=== PATIENT | male | born 1950 | race Caucasian/White ===

== ENCOUNTER → 2020-08-25 18:44 | Outpatient (CLI) | payer MEDICARE, SELFPAY ==
[2020-08-25 19:15] LABS: Alanine Aminotransferase 24 U/L (12-78); Albumin Level 3.6 g/dl (3.5-5.0); Albumin/Globulin Ratio 1.6 (1.1-1.8); Alkaline Phosphatase 123 U/L (38-126); Anion Gap 12.7 mEq/L (5-15); Aspartate Amino Transferase 27 U/L (17-59); Bilirubin,Total 0.4 mg/dl (0.2-1.3); Blood Urea Nitrogen 43 mg/dl (9-20); Calcium 8.5 mg/dl (8.4-10.2); Carbon Dioxide 26 mmol/L (22.0-30.0); Chloride 93 mmol/L (98-107); Estimated Glomerular Filt Rate 46 ml/min (>60); GFR (African American) 56 ML/MIN (>60); Globulin 2.2 g/dL (1.3-3.2); Glucose 151 mg/dl (74-100); Potassium 4.7 mmoL/L (3.5-5.1); Sodium 127 mmol/L (136-145); Total Protein,Serum 5.8 g/dl (6.3-8.2)
== END ==
PROVIDERS: Visit Provider Family Medicine
DX: R60.9 Edema, unspecified (principal)
CPT/HCPCS: 80053

== ENCOUNTER → 2021-02-19 12:01 | Outpatient (CLI) | payer MEDICARE, SELFPAY ==
--- NOTE | 2021-02-19 12:04 | CA_ITS ---
APPROVED REPORT Left Upper Extremity Venous Study for DVT. Fiber Optic Splicer: CARLOS Louise Upper Extremity Pain: Upper Extremity Edema: Left History of Smoking Upper Extremity Swelling: Left Hx of thrombus in left upper extremity 3-4 weeks ago Past History DVT : Vein Imaging IJV (L): Normal phasic flow is seen. Normal flow, augmentation and compression is seen. No evidence of Deep Vein Thrombosis. No abnormalities are demonstrated. SCV (L): Normal phasic flow is seen. Normal flow, augmentation and compression is seen. No evidence of Deep Vein Thrombosis. No abnormalities are demonstrated. Axillary (L): Normal phasic flow is seen. Normal flow, augmentation and compression is seen. No evidence of Deep Vein Thrombosis. No abnormalities are demonstrated. Brachial (L): Normal phasic flow is seen. Normal flow, augmentation and compression is seen. No evidence of Deep Vein Thrombosis. No abnormalities are demonstrated. Basilic (L): Partially Compressible, normal phasic flow is seen. Cephalic (L): Normal phasic flow is seen. Normal flow, augmentation and compression is seen. No evidence of Deep Vein Thrombosis. No abnormalities are demonstrated. Radial (L): Partially Compressible, normal phasic flow is seen. Ulnar (L): Normal phasic flow is seen. Normal flow, augmentation and compression is seen. No evidence of Deep Vein Thrombosis. No abnormalities are demonstrated. Findings Thrombus noted in the left basilic and radial vein. Other deep veins of the left upper extremity are normal. Conclusion Thrombus noted in the left basilic and radial vein. Other deep veins of the left upper extremity are normal. Critical Notification Critical Value: Yes Physician Notified Date: 02/19/2021 Time: 13:21 Physician Name: Dr. Miller Electronically signed by : Harpal Heck MD 02/19/2021 16:36:31
--- NOTE | 2021-02-19 12:07 | XR_ITS ---
PROCEDURE: XR CHEST 2V CLINICAL HISTORY: copd COMPARISON: No exams were available for comparison FINDINGS: Cardiomegaly with mild cephalization of the pulmonary vessels. Coronary artery calcifications and/or stents noted Bipolar pacemaker is present from left subclavian approach. Small parenchymal opacity is present in the right CP angle and could be due to an area of atelectasis or infiltrate. No acute bony abnormalities. IMPRESSION: Nonspecific parenchymal opacity in the right lung base laterally and could be due to an area of atelectasis or infiltrate or developing nodule. Follow-up suggested to confirm stability or resolution. Mild congestive heart failure Dictated by: Harpal Heck MD 02/19/2021 12:41 Harpal Heck MD in [facility] 02/19/2021 12:41
== END ==
PROVIDERS: PCP Family Medicine; Visit Provider Family Medicine
DX: M79.89 Other specified soft tissue disorders (principal); R06.02 Shortness of breath
CPT/HCPCS: 71046; 93971

== ENCOUNTER 2021-02-23 11:28 | Emergency (ER) | payer MEDICARE, SELFPAY ==
[2021-02-23] VITALS (8 sets, daily range): BP systolic 131–154; BP diastolic 76–80; PULSE 75–94; RESP 20–26; TEMP 37.2; O2SAT 96–99; BMI 27.3
--- NOTE | 2021-02-23 12:10 | XR_ITS ---
PROCEDURE: XR CHEST PORTABLE CLINICAL HISTORY: WEAKNESS COMPARISON: CR XR CHEST 2V from 02/19/2021 FINDINGS: Minor atelectasis noted in the right lower lobe. No lobar consolidation, pleural effusions or pneumothorax. Calcified granuloma in the right lung apex. Mild cardiomegaly is noted. Central pulmonary vasculature is within normal limits. Degenerative changes of the visualized thoracic spine. Tortuous descending thoracic aorta is noted. Dual-chamber pacemaker is noted. IMPRESSION: No focal consolidation or pleural effusions. Minor right basal atelectasis. Dictated by: Tori Huber 02/23/2021 12:47 Tori Huebr in [facility] 02/23/2021 12:47
--- NOTE | 2021-02-23 12:16 | HMH.EDGENADL ---
ED Disposition Clinical Impression: Deep venous thrombosis of upper extremity Qualifiers: Affected thrombotic vein of extremity: unspecified vein of extremity Chronicity: acute Laterality: left Qualified Code(s): I82.622 - Acute embolism and thrombosis of deep veins of left upper extremity Disposition: Home, Self-Care Condition on Discharge: Good Instructions: DI for Deep Vein Thrombosis Additional Instructions: To the ED with chest pain, tachycardia, shortness of breath, feeling as though you are going to pass out, worsening swelling of the arm. Referrals: Yehuda Miller MD [Primary Care Provider] - - Critical Care Critical Care Time: No Attestation: On 02/23/21, the high probability of a clinically significant, sudden or life threatening deterioration of the following system(s) required my full and direct attention, intervention and personal management. The time I documented below is in addition to time spent performing reported procedures but includes the following listed in this critical care notation. Medical Decision Making - Jer Inquiry Pt receiving controlled substance: No Vital Signs: 02/23/21 11:37 02/23/21 11:53 Temperature 98.9 F Temperature Source Oral Pulse Rate 91 H Pulse Rate [Left Radial] 92 H Respiratory Rate 26 H Blood Pressure [Right Arm] 152/77 H Blood Pressure Mean [Right Arm] 102 Blood Pressure Source [Right Arm] Automatic Cuff Blood Pressure Position [Right Arm] Sitting 02 Sat by Pulse Oximetry 98 97 Oxygen Delivery Method Room Air - Lab Data Lab Results 02/23/21 12:15: WBC 12.0 H, RBC 3.48 L, Hgb 8.8 L, Hct 28.3 L, MCV 81.2, MCH 25.4 L, MCHC 31.2 L, RDW 20.9 H, Plt Count 227, MPV 7.8, Neut % (Auto) 94.4 H, Lymph % (Auto) 2.9 L, Rabun % (Auto) 1.7, Eos % (Auto) 0.9, Baso % (Auto) 0.2, Neut # (Auto) 11.3 H, Lymph # (Auto) 0.4 L, Rabun # (Auto) 0.2, Eos # (Auto) 0.1, Baso # (Auto) 0.0, Total Counted 100, Neutrophils % (Manual) 91 H, Lymphocytes % (Manual) 5 L, Monocytes % (Manual) 3, Eosinophils % (Manual) 1, Platelet Estimate Normal, Hypochromasia 2+ 02/23/21 12:15: Sodium 138, Potassium 3.7, Chloride 97 L, Carbon Dioxide 33 H, Anion Gap 11.7, BUN 33 H, Creatinine 1.80 H, Estimated Creat Clear 47, Estimated GFR 37 L, Est GFR ( Amer) 45 L, Glucose 153 H, Calcium 8.4, Total Bilirubin 0.7, AST 22, ALT 16, Alkaline Phosphatase 154 H, Total Protein 6.4, Albumin 3.7, Globulin 2.7, Albumin/Globulin Ratio 1.4 02/23/21 12:24: SARS-CoV-2 (PCR) Not detected, Influenza A Untype (PCR) Not detected, Influenza Type B (PCR) Not detected Result diagrams: 02/23/21 12:15 02/23/21 12:15 Orders (Tests/Meds): ORDERS Category Date Time Status PT/PTT Stat Lab 02/23/21 12:15 Received Prothrombin Time INR Stat Lab 02/23/21 12:15 Received Medical Decision Narrative: Patient to the ED today for further evaluation of left upper extremity arm swelling and pain, instructed by PCP if not improved to return to ED for further evaluation. Patient is overall well-appearing on examination in no acute distress with stable vital signs. Diagnosis includes upper extremity DVT, upper extremity cellulitis, deep space abscess of the arm. Will order CBC, CMP and coagulation studies, and consult with Dr. Miller patient's primary care physician. Symptoms of not worsening, patient was is on a stable dose of Xarelto, patient will be able to be discharged. I have discussed this plan thoroughly with the patient, initially they expressed frustration, however after more education, they are all right with going home, patient given extensive signs and symptoms to watch out for emergency indications return to the emergency department, chest pain, shortness of breath, tachycardia, syncope as symptoms that his blood clot could have migrated to the chest, we also discussed symptoms of worsening upper extremity DVT including redness, pain, numbness or paresthesias of the left upper extremity wrist and forearm, as these c
--- NOTE | 2021-02-23 12:21 | PC.NURSE ---
MESSAGE LEFT FOR DR DAMIAN TO CALL DR NEVAREZ BACK
[2021-02-23 12:40] LABS: Basophils % 0.2 % (0.1-2.0); Eosinophils # 0.1 K/mm3 (0.0-0.4); Eosinophils % 0.9 % (0.1-12.0); Hematocrit 28.3 % (42.0-52.0); Hemoglobin 8.8 g/dL (14.1-18.0); Lymphocytes # 0.4 K/mm3 (0.7-4.5); Lymphocytes % 2.9 % (10-50); Mean Corpuscular HGB Conc 31.2 g/dL (31.8-35.4); Mean Corpuscular Hemoglobin 25.4 pg (27.0-31.2); Mean Corpuscular Volume 81.2 fl (80-94); Mean Platelet Volume 7.8 fl (7.4-10.4); Monocytes # 0.2 K/mm3 (0.1-1.0); Monocytes % 1.7 % (1.7-9.3); Neutrophils # 11.3 K/mm3 (1.8-7.8); Neutrophils % 94.4 % (37.0-80.0); Platelet Count 227 K/mm3 (142-424); Red Blood Count 3.48 M/mm3 (4.60-6.20); Red Cell Distribution Width 20.9 % (11.5-17.5)
[2021-02-23 12:41] LABS: MANUAL DIFFERENTIAL MANUAL DIFFERENTIAL (MANUAL DIFF)
[2021-02-23 12:41] LABS: Coronavirus 19, PCR Not Detected (NotDetected); Influenza A, PCR Not Detected (NotDetected); Influenza B, PCR Not Detected (NotDetected)
[2021-02-23 12:50] LABS: Alanine Aminotransferase 16 U/L (12-78); Albumin Level 3.7 g/dl (3.5-5.0); Albumin/Globulin Ratio 1.4 (1.1-1.8); Alkaline Phosphatase 154 U/L (38-126); Anion Gap 11.7 mEq/L (5-15); Aspartate Amino Transferase 22 U/L (17-59); Bilirubin,Total 0.7 mg/dl (0.2-1.3); Blood Urea Nitrogen 33 mg/dl (9-20); Calcium 8.4 mg/dl (8.4-10.2); Carbon Dioxide 33 mmol/L (22.0-30.0); Chloride 97 mmol/L (98-107); Creatinine Clearance Estimated 47 mL/min (50-200); Estimated Glomerular Filt Rate 37 ml/min (>60); GFR (African American) 45 ML/MIN (>60); Globulin 2.7 g/dL (1.3-3.2); Glucose 153 mg/dl (74-100); Potassium 3.7 mmoL/L (3.5-5.1); Sodium 138 mmol/L (136-145); Total Protein,Serum 6.4 g/dl (6.3-8.2)
[2021-02-23 13:12] LABS: Eosinophils % 1 % (0-3); Lymphocytes % 5 % (10-50); Monocytes % 3 % (2-9); Neutrophils % 91 % (42-76); Total Cells Counted 100
[2021-02-23 13:13] LABS: Hypochromasia 2+
[2021-02-23 13:14] LABS: Platelet Estimate Normal
--- NOTE | 2021-02-23 13:24 | PC.NURSE ---
LANG OLSEN speaking with Dr Miller
[2021-02-23 14:53] LABS: Prothrombin Time 19.8 seconds (10.1-12.5)
[2021-02-23 15:05] LABS: INR 1.75 (0.9-1.1)
[2021-02-23 15:08] LABS: Activated Partial Thrombo Time 47.6 seconds (22.8-30.6)
== END 2021-02-23 14:11 | disposition home or self-care (01) ==
PROVIDERS: Emergency Provider Student in an Organized Health Care Education/Training Program; PCP Family Medicine
DX: I82.622 Acute embolism and thrombosis of deep veins of left upper extremity (principal); J44.9 Chronic obstructive pulmonary disease, unspecified; I10 Essential (primary) hypertension; E78.5 Hyperlipidemia, unspecified; F17.290 Nicotine dependence, other tobacco product, uncomplicated; I25.10 Atherosclerotic heart disease of native coronary artery without angina pectoris; Z95.0 Presence of cardiac pacemaker; Z79.899 Other long term (current) drug therapy; Z11.52 Encounter for screening for COVID-19
CPT/HCPCS: 71045; 80053; 85007; 85025; 85610; 85730; 99283; U0003

== ENCOUNTER 2021-11-10 16:06 | Inpatient (IN) | payer MEDICARE, SELFPAY ==
--- NOTE | 2021-11-10 16:20 | PC.NURSE ---
Pt arrived to the floor at this time
[2021-11-10 16:48] VITALS: BP 115/55; PULSE 98; RESP 24; TEMP 37.3; O2SAT 97
--- NOTE | 2021-11-10 16:48 | HMH.CONS ---
*Admission Date: 11/10/21 *Reason for consult:: Penoscrotal edema *History of present illness: 71-year-old white male with 2-day history of left buttock pain followed by swelling of his scrotum and penis. Patient denies any recent trauma or bug bites. He does give a history of a MRSA infection of his right buttock 2 to 3 years ago that required surgical management. Current temp is 99.1 but he does have subjective chills. He is admitted to the floor for further evaluation at the request of Dr. Miller. Patient's past medical history is significant for congestive heart failure. Patient states he is able to void despite the penile swelling. [facility] History Medical History: Reports:: Congestive Heart Failure, Chronic Obstructive Pulmonary Disease (COPD), Coronary Artery Disease, Hyperlipidemia, Hypertension, Internal Pacemaker, MRSA Denies:: Cancer, Diabetes Mellitus Type 1, Diabetes Mellitus Type 2, Seizures *Have you ever received a pneumonia vaccine?: Yes *Have you received a flu vaccine this season?: Yes Other Medical History: Denies: Blood Transfusion Reaction Laterality Cases: Left: Cataract Other Surgeries: Yes: Angioplasty, Colonoscopy, Coronary Stent, Pacemaker Amputation: No Fractures: No - *Social History Last grade of school completed: 7th or 8th Smoking Status: Former smoker Tobacco Type: smokeless tobacco Alcohol Intake: never Substance Use Type: denies use *Occupational Status:: retired Housing: house Household Members: spouse *Travel in the last 8 weeks: None Family Hx:: Coronary Artery Disease Review of Systems - Review of Systems Review of systems:: pertinent systems reviewed and negative unless documented below Meds Home Medications Medication Instructions Recorded Confirmed Type albuterol sulfate 90 mcg/actuation 2 puff INHALATION Q6H PRN #8.5 g 08/25/20 11/10/21 Rx aerosol inhaler atorvastatin 40 mg tablet 40 mg PO QHS #90 tab 02/19/21 11/10/21 Rx pantoprazole 40 mg tablet,delayed 40 mg PO QDAY #90 tab 02/19/21 11/10/21 Rx release Isosorbide Mononitrate [Imdur 60mg 60 mg PO DAILY 02/23/21 11/10/21 History ER tablet] predniSONE [Deltasone 20mg 20 mg PO DAILY 02/23/21 11/10/21 History tablet] dorzolamide 2 % eye drops ml OPHTHALMIC 03/09/21 11/10/21 History fluticasone fur. 200 mcg-umeclid ea INHALATION DAILY each 03/09/21 11/10/21 History 62.5 mcg-vilant 25 mcg inhalat.powder nystatin 100,000 unit/mL oral ml PO 03/09/21 11/10/21 History suspension rivaroxaban 20 mg tablet 20 mg PO DAILY #90 tab 03/09/21 11/10/21 Rx colchicine 0.6 mg tablet See Rx Instructions .ROUTE 03/24/21 11/10/21 Rx .COMPLEX #60 tab latanoprost 0.005 % eye drops 1 drp OPHTHALMIC ml 03/24/21 11/10/21 History montelukast 10 mg tablet 10 mg PO tab 03/24/21 11/10/21 History lorazepam 0.5 mg tablet 0.5 mg PO BID PRN #60 tab 04/17/21 11/10/21 Rx doxycycline hyclate 100 mg tablet 100 mg PO DAILY tab 06/25/21 11/10/21 History hydrocodone 5 mg-acetaminophen 325 1 tab PO .COMPLEX PRN tab 06/25/21 11/10/21 History mg tablet amiodarone 200 mg tablet 200 mg PO DAILY #90 tab 07/13/21 11/10/21 Rx nitroglycerin 0.4 mg sublingual See Rx Instructions .ROUTE 09/17/21 11/10/21 Rx tablet .COMPLEX #25 tab hydrocodone 7.5 mg-acetaminophen 1 tab PO Q8H PRN #90 tab 10/22/21 11/10/21 Rx 325 mg tablet ipratropium 0.5 mg-albuterol 3 mg 3 ml INHALATION QID PRN #360 ml 11/10/21 11/10/21 Rx (2.5 mg base)/3 mL nebulization soln Allergies Allergy/AdvReac Type Severity Reaction Status Date / Time No Known Allergies Allergy Verified 11/10/21 14:28 Exam Vital signs and Labs for Last 24 Hours: Temp Pulse Resp BP Pulse Ox 99.1 F 98 H 24 115/55 L 97 11/10/21 16:48 11/10/21 16:48 11/10/21 16:48 11/10/21 16:48 11/10/21 16:48 - *Routine Abdominal Exam Present: soft. Absent: tenderness - *Routine Rectal Exam Comments: On the left buttock adjacent to the anus is a small ulcera
[2021-11-10 17:10] VITALS: BMI 27.1
[2021-11-10 17:11] LABS: Coronavirus 19, PCR Not Detected (NotDetected); Influenza A, PCR Not Detected (NotDetected); Influenza B, PCR Not Detected (NotDetected)
--- NOTE | 2021-11-10 17:35 | XR_ITS ---
PROCEDURE INFORMATION: Exam: XR Chest Exam date and time: 11/10/2021 6:00 PM Age: 71 years old Clinical indication: Other: Copd; Additional info: Copd and chf TECHNIQUE: Imaging protocol: XR of the chest. Views: 1 view. COMPARISON: CR XR CHEST PORTABLE 02/23/2021 12:33 PM FINDINGS: Lungs: A pacemaker device is present, and its leads are in appropriate position. Lung volumes are mildly diminished, as before. Minor strandy densities in the lung bases and left lateral mid lung are stable suggesting parenchymal scarring. No new focal areas of consolidation. Pleural spaces: No pleural effusions or appreciable adenopathy. Negative for pneumothorax. Heart/Mediastinum: Cardiac silhouette and pulmonary vasculature are within range of normal. Bones/joints: There is no evidence of acute fracture. IMPRESSION: Stable mild strandy densities in the lung bases and left lateral mid lung suggesting parenchymal scarring.
[2021-11-10 17:49] LABS: Chloride 102 mmol/L (98-107); Potassium 4.3 mmoL/L (3.5-5.1); Sodium 134 mmol/L (136-145)
[2021-11-10 17:52] LABS: Anion Gap 17.3 mEq/L (5-15); Blood Urea Nitrogen 38 mg/dl (9-20); Calcium 8.2 mg/dl (8.4-10.2); Carbon Dioxide 19 mmol/L (22.0-30.0); Creatinine Clearance Estimated 28 mL/min (50-200); Estimated Glomerular Filt Rate 21 ml/min (>60); GFR (African American) 25 ML/MIN (>60); Glucose 114 mg/dl (74-100)
[2021-11-10 17:53] LABS: Basophils % 0.1 % (0.1-2.0); Eosinophils % 0.1 % (0.1-12.0); Hematocrit 31.1 % (42.0-52.0); Hemoglobin 10.1 g/dL (14.1-18.0); Lymphocytes # 0.6 K/mm3 (0.7-4.5); Lymphocytes % 3.5 % (10-50); Mean Corpuscular HGB Conc 32.5 g/dL (31.8-35.4); Mean Corpuscular Hemoglobin 25.8 pg (27.0-31.2); Mean Corpuscular Volume 79.6 fl (80-94); Mean Platelet Volume 9.7 fl (7.4-10.4); Monocytes # 1.2 K/mm3 (0.1-1.0); Monocytes % 6.3 % (1.7-9.3); Neutrophils # 16.7 K/mm3 (1.8-7.8); Platelet Count 264 K/mm3 (142-424); Red Cell Distribution Width 17.9 % (11.5-17.5); White Blood Count 18.6 K/mm3 (4.8-10.8)
[2021-11-10 17:54] LABS: MANUAL DIFFERENTIAL MANUAL DIFFERENTIAL (MANUAL DIFF)
[2021-11-10 18:26] LABS: NT Pro Brain Natriuretic Pep. 39100 pg/mL (0-125)
[2021-11-10 18:38] LABS: Anisocytosis 1+; Hypochromasia 1+; Lymphocytes % 6 % (10-50); Monocytes % 5 % (2-9); Neutrophils % 89 % (42-76); Ovalocytes 2+; Platelet Estimate Normal; Total Cells Counted 100
--- NOTE | 2021-11-10 18:48 | PC.NURSE ---
Dr Partida notified of consult on pt.
--- NOTE | 2021-11-10 18:54 | PC.WOUNDNOTE ---
abcess noted to left buttock
--- NOTE | 2021-11-10 19:58 | CT_ITS ---
PROCEDURE INFORMATION: Exam: CT Abdomen And Pelvis Without Contrast Exam date and time: 11/10/2021 8:13 PM Age: 71 years old Clinical indication: Screening exam; Other: Cellulitis buttocks, evaluate for abcess TECHNIQUE: Imaging protocol: Computed tomography of the abdomen and pelvis without contrast. Radiation optimization: All CT scans at this facility use at least one of these dose optimization techniques: automated exposure control; mA and/or kV adjustment per patient size (includes targeted exams where dose is matched to clinical indication); or iterative reconstruction. COMPARISON: CR XR CHEST PORTABLE 11/10/2021 6:00 PM FINDINGS: Lungs: No air densities to suggest emphysematous changes. Liver: Normal. No mass. Gallbladder and bile ducts: Normal. No calcified stones. No ductal dilation. Pancreas: Normal. No ductal dilation. Spleen: Multiple calcific densities of the spleen are likely related to prior granulomatous process. Adrenal glands: Normal. No mass. Kidneys and ureters: Left renal Bosniak 1 cystic lesion that is homogeneous and fluid density (-9-20 HU), no septations or calcifications, having gupta smooth and thin. Measurement is 29 mm. No follow-up recommended. Stomach and bowel: Unremarkable. No obstruction. No mucosal thickening. Appendix: No evidence of appendicitis. Intraperitoneal space: Unremarkable. No free air. No significant fluid collection. Vasculature: Moderate calcific atherosclerotic disease of the abdominal aorta without aneurysmal dilatation is present. Lymph nodes: Unremarkable. No enlarged lymph nodes. Urinary bladder: Unremarkable as visualized. Reproductive: Unremarkable as visualized. Bones/joints: Unremarkable. No acute fracture. Soft tissues: Significant soft tissue swelling of the scrotum, and perineum soft tissues which can be seen with infectious process such as cellulitis. IMPRESSION: Significant soft tissue swelling of the scrotum, and perineum soft tissues which can be seen with infectious process such as cellulitis. No air densities to suggest emphysematous changes. COMMENTS: Consistent with the [employer]'s Incidental Findings Committee white paper (J Am Mikel Radiol 2018): Any incidental renal lesion less than 1 cm or classified as too small to characterize, or any incidental cystic renal lesion characterized as simple-appearing, is likely benign. No follow-up imaging is recommended for these lesions per consensus recommendations based on imaging criteria.
--- NOTE | 2021-11-10 20:06 | HMH.HP ---
*Admission Date: 11/10/21 *Chief complaint: cellulitis buttocks and scrotal edema *History of present illness: Patient is a 71-year-old white male, known to me from the office, who was admitted with Vitas of the left buttocks associated with pain and marked scrotal edema with penile swelling. Patient relays a history of MRSA buttock infection, right-sided, requiring incision and drainage several years ago at [facility] in [place]. Patient relays increasing redness and tenderness at the inferior aspect of the left buttocks over the last 2 days. Was recently associated with marked scrotal and penile edema. Patient was seen in consultation per Dr. James. Patient has a history of congestive heart failure and chronic renal insufficiency. His brain natruretic peptide was markedly elevated. Patient has history of coronary artery disease, stent deployment, and refractory chest wall discomfort. Patient has a history of severe gout with tophus formation. Patient has a history of COPD oxygen dependence Patient has history of Covid pneumonia, quired hospitalization in August of this year. During the course of his stay he developed a DVT in the left upper extremity, for which he was placed on Xarelto. Given patient's presentation, acute changes on physical exam, and constellation of comorbid features I elected to admit him for further treatment, including IV antibiotics, further delineation of his cellulitis, and consultation. [facility] History Medical History: Reports:: Congestive Heart Failure, Chronic Obstructive Pulmonary Disease (COPD), Coronary Artery Disease, Hyperlipidemia, Hypertension, Internal Pacemaker, MRSA Denies:: Cancer, Diabetes Mellitus Type 1, Diabetes Mellitus Type 2, Seizures *Have you ever received a pneumonia vaccine?: Yes *Have you received a flu vaccine this season?: Yes Other Medical History: Denies: Blood Transfusion Reaction Laterality Cases: Left: Cataract Other Surgeries: Yes: Angioplasty, Colonoscopy, Coronary Stent, Pacemaker Amputation: No Fractures: No - *Social History Last grade of school completed: 7th or 8th Smoking Status: Former smoker Tobacco Type: smokeless tobacco Alcohol Intake: never Substance Use Type: denies use *Occupational Status:: retired Housing: house Household Members: spouse *Travel in the last 8 weeks: None Family Hx:: Coronary Artery Disease Review of Systems - Constitutional Reports chills, Reports weakness - Eyes Denies change in vision - ENT Denies abnormal hearing, Denies bleeding gums - *Cardiovascular Reports chest pain, Reports shortness of breath, Reports shortness of breath with activity, Reports shortness of breath when lying down - *Respiratory Reports shortness of breath, Reports shortness of breath with activity, Denies excessive phlegm production - *Gastrointestinal Denies abdominal pain - *Genitourinary Reports genital pain, Reports scrotal swelling, Denies difficulty urinating, Denies blood in urine - *Musculoskeletal Reports abnormal walking, Reports joint pain, Reports deformity, Reports limited joint movement - Integumentary/Breasts Reports new lesions, Denies yellowing of the skin - *Neurologic Denies behavioral changes - Psychiatric Denies behavioral changes - Endocrine Denies increased thirst, Denies increased hunger - Hematologic/Lymphatic Denies easy bleeding - Allergic/Immunologic Denies hives Meds Home Medications Medication Instructions Recorded Confirmed Type albuterol sulfate 90 mcg/actuation 2 puff INHALATION Q6H PRN #8.5 g 08/25/20 11/10/21 Rx aerosol inhaler atorvastatin 40 mg tablet 40 mg PO QHS #90 tab 02/19/21 11/10/21 Rx pantoprazole 40 mg tablet,delayed 40 mg PO QDAY #90 tab 02/19/21 11/10/21 Rx release Isosorbide Mononitrate [Imdur 60mg 60 mg PO DAILY 02/23/21 11/10/21 History ER tablet] predniSONE [Deltasone 20mg 20 mg PO DAILY 02/23/21 11/10/21 History tablet] latanoprost 0.00
--- NOTE | 2021-11-10 20:29 | XR_ITS ---
PROCEDURE INFORMATION: Exam: XR Chest Exam date and time: 11/10/2021 9:10 PM Age: 71 years old Clinical indication: Cardiovascular condition or disease; Congestive heart failure (chf); Cause unknown TECHNIQUE: Imaging protocol: XR of the chest. Views: 1 view. COMPARISON: CR XR CHEST PORTABLE 11/10/2021 6:00 PM FINDINGS: Lungs: Bibasilar opacities unchanged from prior exam. Pleural spaces: Unremarkable. No pleural effusion. No pneumothorax. Heart/Mediastinum: A 2 lead internal cardiac device implanted at the left chest with leads extending to the right heart. Cardiomegaly unchanged. Bones/joints: Unremarkable. IMPRESSION: Cardiomegaly unchanged. Bibasilar opacities unchanged from prior exam.
[2021-11-10 20:51] VITALS: BP 123/65; PULSE 98; RESP 16; TEMP 36.6; O2SAT 97
[2021-11-10 22:47] VITALS: PULSE 86; O2SAT 94
[2021-11-11] VITALS (21 sets, daily range): BP systolic 99–158; BP diastolic 52–73; PULSE 60–108; RESP 15–24; TEMP 36.3–38; O2SAT 93–100; BMI 27.2
--- NOTE | 2021-11-11 00:01 | US_ITS ---
FINAL REPORT TECHNIQUE: Ultrasound images of the retroperitoneal were obtained. CLINICAL HISTORY: elev creat FINDINGS: The right kidney measures 11.2 cm in length. It is normal in echogenicity. There is no hydronephrosis. The left kidney measures 11.5 cm in length. It is normal in echogenicity. There is a 3 cm simple cyst in the upper lobe. There is no hydronephrosis. The spleen is enlarged measuring 13.8 cm. Limited images of the liver are unremarkable. IMPRESSION: 3 cm left renal cyst. No hydronephrosis. Splenomegaly. Reviewed, Interpreted and Dictated by Dewayne Bauman III, MD Transcribed by Catherine Hein Authenticated by Dewayne Bauman III, MD on 11/11/2021 01:05:33 PM [facility]
--- NOTE | 2021-11-11 05:41 | PC.NURSE ---
Addendum entered by Yahaira Welch RN 11/11/21 06:19: 0600 Patient labored breathing and visual uncomfortable with expiatory wheezing heard. Patient has only voided around 400ml throughout shift. Patient states he feels the urge and can only get some urine to come out (no bladder scanner available at this time). Contacted [facility] patients home diuretics restarted. Discussed carrillo catheter with [facility] who states and him discussed carrillo not to be placed if patient voiding. Neus states patient will be reevaluated today. Dujudy gave. Patient having temp of 100.2 after 5/325 mg Oxycodone/acetaminophen administered. Blood CA ordered/pending. Also addressed patients pain with [facility] who ordered 2mg morphine IV once. See mar. Original Note: Removed jock strap from patient. Swelling is increasing in scrotum. Jock strap not big enough to accommodate swelling, squeezing some areas of the scrotum resulting in color change from red to purple and pain to patient. Immediate relief noted in patient and color returning to red.
[2021-11-11 06:18] LABS: Basophils % 0.2 % (0.1-2.0); Eosinophils % 0.2 % (0.1-12.0); Hematocrit 31.2 % (42.0-52.0); Hemoglobin 9.7 g/dL (14.1-18.0); Lymphocytes # 0.5 K/mm3 (0.7-4.5); Lymphocytes % 3.2 % (10-50); Mean Corpuscular HGB Conc 31.2 g/dL (31.8-35.4); Mean Corpuscular Hemoglobin 24.9 pg (27.0-31.2); Mean Corpuscular Volume 79.8 fl (80-94); Monocytes % 6.8 % (1.7-9.3); Neutrophils # 13.5 K/mm3 (1.8-7.8); Neutrophils % 89.7 % (37.0-80.0); Platelet Count 224 K/mm3 (142-424); Red Blood Count 3.91 M/mm3 (4.60-6.20); Red Cell Distribution Width 17.7 % (11.5-17.5)
[2021-11-11 06:21] LABS: MANUAL DIFFERENTIAL MANUAL DIFFERENTIAL (MANUAL DIFF)
[2021-11-11 06:31] LABS: Chloride 101 mmol/L (98-107); Potassium 4.4 mmoL/L (3.5-5.1); Sodium 134 mmol/L (136-145)
--- NOTE | 2021-11-11 06:31 | HMH.GSCON ---
*Admission Date: 11/10/21 *Reason for consult:: Buttock abscess *History of present illness: This is a 71-year-old gentleman seen in consultation from Dr. Miller for evaluation regarding left buttock abscess. He has been evaluated by the urology service for scrotal/penile swelling. Forwarded from admission H&P: Patient is a 71-year-old white male, known to me from the office, who was admitted with Vitas of the left buttocks associated with pain and marked scrotal edema with penile swelling. Patient relays a history of MRSA buttock infection, right-sided, requiring incision and drainage several years ago at [facility] in [place]. Patient relays increasing redness and tenderness at the inferior aspect of the left buttocks over the last 2 days. Was recently associated with marked scrotal and penile edema. Patient was seen in consultation per Dr. James. Patient has a history of congestive heart failure and chronic renal insufficiency. His brain natruretic peptide was markedly elevated. Patient has history of coronary artery disease, stent deployment, and refractory chest wall discomfort. Patient has a history of severe gout with tophus formation. Patient has a history of COPD oxygen dependence Patient has history of Covid pneumonia, quired hospitalization in August of this year. During the course of his stay he developed a DVT in the left upper extremity, for which he was placed on Xarelto. Given patient's presentation, acute changes on physical exam, and constellation of comorbid features I elected to admit him for further treatment, including IV antibiotics, further delineation of his cellulitis, and consultation. Forwarded from urology evaluation: 71-year-old white male with 2-day history of left buttock pain followed by swelling of his scrotum and penis. Patient denies any recent trauma or bug bites. He does give a history of a MRSA infection of his right buttock 2 to 3 years ago that required surgical management. Current temp is 99.1 but he does have subjective chills. He is admitted to the floor for further evaluation at the request of Dr. Miller. Patient's past medical history is significant for congestive heart failure. Patient states he is able to void despite the penile swelling. Plan: 71-year-old white male with penoscrotal edema. This problem is usually seen in the postoperative patient is nonambulatory or in systemic diagnoses such as heart failure. There is no evidence of any acute infectious process involving the scrotum or penis. Patient does have a history of MRSA infection of the right-sided buttock lesion to 3 years ago and may have the same process going on in his left side now. Pelvic inflammation could cause the penoscrotal edema and CT scan is recommended. I would also recommend a scrotal ultrasound. Scrotal elevation is recommended for reduction of the penile and scrotal swelling. Jockstrap would be ideal if patient can tolerate. The penis should be pointed upwards if jockstrap is placed. I will follow up with patient on . Review of Systems - Constitutional Denies fatigue - *Respiratory Denies cough - *Gastrointestinal Denies abdominal pain - *Neurologic Reports abnormal walking, Reports weakness, Denies abnormal hearing, Denies behavioral changes [facility] History Medical History: Reports:: Congestive Heart Failure, Chronic Obstructive Pulmonary Disease (COPD), Coronary Artery Disease, Hyperlipidemia, Hypertension, Internal Pacemaker, MRSA Denies:: Cancer, Diabetes Mellitus Type 1, Diabetes Mellitus Type 2, Seizures *Have you ever received a pneumonia
[2021-11-11 06:34] LABS: Alanine Aminotransferase 75 U/L (12-78); Albumin Level 3.4 g/dl (3.5-5.0); Albumin/Globulin Ratio 1.5 (1.1-1.8); Alkaline Phosphatase 212 U/L (38-126); Anion Gap 19.4 mEq/L (5-15); Aspartate Amino Transferase 72 U/L (17-59); Bilirubin,Total 1.3 mg/dl (0.2-1.3); Blood Urea Nitrogen 48 mg/dl (9-20); Calcium 7.8 mg/dl (8.4-10.2); Carbon Dioxide 18 mmol/L (22.0-30.0); Creatinine Clearance Estimated 27 mL/min (50-200); Estimated Glomerular Filt Rate 20 ml/min (>60); GFR (African American) 24 ML/MIN (>60); Globulin 2.3 g/dL (1.3-3.2); Glucose 95 mg/dl (74-100); Total Protein,Serum 5.7 g/dl (6.3-8.2)
--- NOTE | 2021-11-11 07:21 | P.CONPHA_ITS ---
[facility] Pharmacy VTE Monitoring - Patient Demographics Admission date: 11/10/21 Report Date: 11/11/21 Time: 07:21 Allergies/Adverse Reactions: Patient Allergies No Known Allergies Allergy (Verified 11/10/21 14:28) Height: 1.8 m Weight: 88.252 kg Patient Problems: Current Active Problems Edema of scrotum (Acute) Renal abscess (Acute) Renal failure (Chronic) Perianal abscess (Acute) Heart failure, unspecified (Acute) Dependence on supplemental oxygen (Acute) Deep venous thrombosis of upper extremity (Acute) History of COVID-19 (Acute) MRSA infection (Acute) Chest wall pain, chronic (Acute) NYHA class 2 heart failure with reduced ejection fraction (Chronic) Dyspnea (Acute) SOB (shortness of breath) (Chronic) Coronary artery disease (Chronic) History of cardiac pacemaker in situ (Chronic) HTN (hypertension) (Chronic) CHF (congestive heart failure) (Chronic) - VTE Risk Labs: VTE Related Lab Results Hgb 9.7 g/dL (14.1-18.0) L 11/11/21 06:01 Hct 31.2 % (42.0-52.0) L 11/11/21 06:01 Plt Count 224 K/mm3 (142-424) 11/11/21 06:01 BUN 48 mg/dl (9-20) H D 11/11/21 06:01 Creatinine 3.10 mg/dl (0.66-1.25) H 11/11/21 06:01 Estimated Creat Clear 27 mL/min (50-200) 11/11/21 06:01 VTE Score: 4 VTE Risk Level: Low Risk - Prophylaxis VTE Prophylaxis Ordered?: Yes Types of VTE Prophylaxis: TEDS Knee High Location of Applied Device: Bilateral Lower Extremeties
--- NOTE | 2021-11-11 08:02 | HMH.OPNOTE ---
Date of procedure: 11/11/21 Pre-op Diagnosis:: Left perianal/perineal abscess Post-op Diagnosis:: Same Procedure performed:: Incision and drainage of left perianal/perineal abscess Surgeon:: Akira Partida MD EMOTIONAL DISABILITIES TEACHER:: Bandar Snyder Anesthesia: spinal Estimated blood loss (mL): 15 Operative findings:: Focal pressure ischemia along left perianal/perineal region with projection to the scrotum Soft tissue edema and induration projecting from left perianal/perineal region and to scrotum Thin purulent fluid throughout cavity that projected both posteriorly and anteriorly No obvious changes consistent with infectious gas-forming organism No obvious soft tissue or skin necrosis beyond margin of focal pressure ischemia Evaluation with regard to scrotal/penile swelling deferred to the urology service Operative note:: After informed consent was obtained the patient was taken to the operating room and maintained in a seated position. The anesthesia service performed a spinal and he was then transferred to a supine position. The perianal/perineal/scrotal region was prepped and draped in a sterile fashion. The left perianal/perineal area of focal ischemia/ulceration was opened with electrocautery. Fluid was obtained for Gram stain/culture. The overlying skin was excised with electrocautery. A wound/cavity that projected both anteriorly and posteriorly was noted. Thin purulent fluid throughout this cavity was evacuated. No obvious changes consistent with a gas-forming organism were noted. No obvious soft tissue or skin necrosis was seen beyond the above-stated focal pressure ischemia. Dry Kerlix was then placed within the wound base both anteriorly and posteriorly. Dressings were applied and patient was transferred to recovery in stable condition. Condition: stable Disposition: PACU Specimens:: Fluid for Gram stain/culture Complications:: No immediate
--- NOTE | 2021-11-11 08:06 | P.PN_ITS ---
[facility] Anesthesia Checklist - Structural Data Admitted From: Inpatient Planned Operative Procedure/s: i/d perineal abcess Consent for Planned Operative Procedure(s) Verified: Yes - Additional verifications Anesthesia Reactions: No Hx Blood Transfusions: No Blood Transfusion Reaction: No - Airway Assessment C-Spine Mobility Assessed: Yes TMJ Mobility Assessed: Yes Dentition: Dentures-good fit - Neurological Assessment Level of Consciousness: Awake, Alert, Appropriate - Anesthesia Plan Anesthesia Risk discussed: Yes Anesthesia Plan: Patient unable to respond/answer ASA Class: IV Anesthesia Type: MAC w/Spinal [facility] History I have reviewed the patient's past medical history: Yes Medical History: Reports:: Congestive Heart Failure, Chronic Obstructive Pulmonary Disease (COPD), Coronary Artery Disease, Hyperlipidemia, Hypertension, Internal Pacemaker, MRSA Denies:: Cancer, Diabetes Mellitus Type 1, Diabetes Mellitus Type 2, Seizures *Have you ever received a pneumonia vaccine?: Yes *Have you received a flu vaccine this season?: Yes Other Medical History: Denies: Blood Transfusion Reaction Anesthesia experience/problems:: none Laterality Cases: Left: Cataract Other Surgeries: Yes: Angioplasty, Colonoscopy, Coronary Stent, Pacemaker Amputation: No Fractures: No - *Social History Last grade of school completed: 7th or 8th Smoking Status: Former smoker Tobacco Type: smokeless tobacco Alcohol Intake: never Substance Use Type: denies use *Occupational Status:: retired Housing: house Household Members: spouse *Travel in the last 8 weeks: None Family Hx:: Coronary Artery Disease
--- NOTE | 2021-11-11 08:07 | HMH.ANESI ---
[facility] Anesthesia Record Part I Intake, IV Amount: 600 Estimated blood loss (mL): 0 Urine output (mL): 0 Blood Pressure: 103/62 SaO2: 98 Pulse Rate: 98 Respiratory Rate: 16 Temperature: 97.3 F Patient is:: Awake, Stable Stable to PACU at:: 08:00
[2021-11-11 08:09] LABS: Lymphocytes % 7 % (10-50); Microcytosis 1+; Monocytes % 2 % (2-9); Neutrophils % 91 % (42-76); Total Cells Counted 100
[2021-11-11 08:10] LABS: Anisocytosis 1+; Hypochromasia 1+; Platelet Estimate Normal
--- NOTE | 2021-11-11 09:35 | HMH.PHAINT ---
Home medication list was verified using [employer] claim history and med-rec from recent visit with one of our providers.
--- NOTE | 2021-11-11 09:36 | HMH.CNCARD ---
History of Present Illness Consult date: 11/11/21 Requesting physician: Yehuda Miller Consult reason: congestive heart failure Chief complaint: Perianal abscess, penile/scrotal swelling, h/o CHF Additional Medical History:: 1. Coronary artery disease with history of multiple coronary stents placed in the past by Dr. Mcdaniel and Dr. Chan in [place], [place] 2. History of congestive heart failure 3. History of permanent pacemaker insertion for sick sinus syndrome with generator replacement in 2018 4. Prior MRSA infection of the right buttock approximately 2019 with subsequent surgical intervention 5. Perirectal/perianal abscess, left side, status post I&D, 11/11/2021 6. COPD with history of oxygen dependency 7. Severe gout with tophus formation 8. History of Covid infection 9. Chronic amiodarone therapy for unknown arrhythmia (likely A. fib) 10. left upper extremity DVT treated with Xarelto therapy, 02/2021 History of present illness: Patient is recently returned from the OR for I&D of perirectal/perianal abscess. He is still very sleepy from the sedation. Information mostly obtained from the chart. He denies any recent chest pain, pressure or tightness. The following information forwarded from Dr. Miller's H&P. Patient is a 71-year-old white male, known to me from the office, who was admitted with Vitas of the left buttocks associated with pain and marked scrotal edema with penile swelling. Patient relays a history of MRSA buttock infection, right-sided, requiring incision and drainage several years ago at [facility] in [place]. Patient relays increasing redness and tenderness at the inferior aspect of the left buttocks over the last 2 days. Was recently associated with marked scrotal and penile edema. Patient was seen in consultation per Dr. James. Patient has a history of congestive heart failure and chronic renal insufficiency. His brain natruretic peptide was markedly elevated. Patient has history of coronary artery disease, stent deployment, and refractory chest wall discomfort. Patient has a history of severe gout with tophus formation. Patient has a history of COPD oxygen dependence Patient has history of Covid pneumonia, quired hospitalization in August of this year. During the course of his stay he developed a DVT in the left upper extremity, for which he was placed on Xarelto. Given patient's presentation, acute changes on physical exam, and constellation of comorbid features I elected to admit him for further treatment, including IV antibiotics, further delineation of his cellulitis, and consultation. [facility] [place] History Medical History: Reports:: Congestive Heart Failure, Chronic Obstructive Pulmonary Disease (COPD), Coronary Artery Disease, Hyperlipidemia, Hypertension, Internal Pacemaker, MRSA Denies:: Cancer, Diabetes Mellitus Type 1, Diabetes Mellitus Type 2, Seizures *Have you ever received a pneumonia vaccine?: Yes *Have you received a flu vaccine this season?: Yes Other Medical History: Denies: Blood Transfusion Reaction Anesthesia experience/problems:: none Laterality Cases: Left: Cataract Other Surgeries: Yes: Angioplasty, Colonoscopy, Coronary Stent, Pacemaker Amputation: No Fractures: No - *Social History Last grade of school completed: 7th or 8th Smoking Status: Former smoker Tobacco Type: smokeless tobacco Alcohol Intake: never Substance Use Type: denies use *Occupational Status:: retired Housing: house Household Members: spouse *Travel in the last 8 weeks: None Family Hx:: Coronary Artery Disease Meds Home Medications Medication Instructions Recorded Confirmed Type albuterol sulfate 90 mcg/actuation 2 puff INHALATION Q6H PRN #8.5 g 08/25/20 11/10/21 Rx aerosol inhaler atorvastatin 40 mg tablet 40 mg PO QHS #90 tab 02/19/21 11/10/21 Rx Isosorbide Mononitrate [Imdur 60mg 60 mg PO DAILY 02/23/21 11/10/21 History ER tablet] predniSONE [Deltasone 20mg 20 mg PO DAILY 02/23/21 11/10/21 H
--- NOTE | 2021-11-11 09:56 | HMH.ACPN2 ---
Internal Medicine - PN: Subj *Date: 11/11/21 *Time: 09:00 Interval history: just back from surgery. states hx of mrsa Exam Vital signs and Labs for Last 24 Hours: Temp Pulse Resp BP Pulse Ox 97.3 F L 98 H 16 103/62 L 97 11/11/21 08:07 11/11/21 08:07 11/11/21 08:07 11/11/21 08:07 11/11/21 08:00 Laboratory Results - last 24 hr 11/10/21 17:00: SARS-CoV-2 (PCR) Not detected, Influenza A Untype (PCR) Not detected, Influenza Type B (PCR) Not detected 11/10/21 17:04: WBC 18.6 H, RBC 3.90 L, Hgb 10.1 L, Hct 31.1 L, MCV 79.6 L, MCH 25.8 L, MCHC 32.5, RDW 17.9 H, Plt Count 264, MPV 9.7, Neut % (Auto) 90.0 H, Lymph % (Auto) 3.5 L, [place] % (Auto) 6.3, Eos % (Auto) 0.1, Baso % (Auto) 0.1, Neut # (Auto) 16.7 H, Lymph # (Auto) 0.6 L, [place] # (Auto) 1.2 H, Eos # (Auto) 0.0, Baso # (Auto) 0.0, Total Counted 100, Neutrophils % (Manual) 89 H, Lymphocytes % (Manual) 6 L, Monocytes % (Manual) 5, Platelet Estimate Normal, Hypochromasia 1+, Anisocytosis 1+, Ovalocytes 2+ 11/10/21 17:04: Sodium 134 L, Potassium 4.3, Chloride 102, Carbon Dioxide 19 L, Anion Gap 17.3 H, BUN 38 H, Creatinine 3.00 H, Estimated Creat Clear 28, Estimated GFR 21 L, Est GFR ( Amer) 25 L, Glucose 114 H, Calcium 8.2 L 11/10/21 17:04: NT-Pro-B Natriuret Pep 74833 H 11/11/21 06:01: WBC 15.0 H, RBC 3.91 L, Hgb 9.7 L, Hct 31.2 L, MCV 79.8 L, MCH 24.9 L, MCHC 31.2 L, RDW 17.7 H, Plt Count 224, MPV 10.0, Neut % (Auto) 89.7 H, Lymph % (Auto) 3.2 L, [place] % (Auto) 6.8, Eos % (Auto) 0.2, Baso % (Auto) 0.2, Neut # (Auto) 13.5 H, Lymph # (Auto) 0.5 L, [place] # (Auto) 1.0, Eos # (Auto) 0.0, Baso # (Auto) 0.0, Total Counted 100, Neutrophils % (Manual) 91 H, Lymphocytes % (Manual) 7 L, Monocytes % (Manual) 2, Platelet Estimate Normal, Hypochromasia 1+, Anisocytosis 1+, Microcytosis 1+ 11/11/21 06:01: Sodium 134 L, Potassium 4.4, Chloride 101, Carbon Dioxide 18 L, Anion Gap 19.4 H, BUN 48 H D, Creatinine 3.10 H, Estimated Creat Clear 27, Estimated GFR 20 L, Est GFR ( Amer) 24 L, Glucose 95, Calcium 7.8 L, Total Bilirubin 1.3, AST 72 H, ALT 75, Alkaline Phosphatase 212 H, Total Protein 5.7 L, Albumin 3.4 L, Globulin 2.3, Albumin/Globulin Ratio 1.5 I & O for Last 24 hours: Intake & Output 11/08/21 11/09/21 11/10/21 11/11/21 11:59 11:59 11:59 11:59 Intake Total 840 / 840 Output Total 470 / 470 Balance 370 / 370 Weight 194 lb 9 oz Microbiology Reports for the Last 24 Hours: Microbiology 11/10/21 16:30 Buttock - Abscess Gram Stain - Final 11/10/21 16:30 Buttock - Abscess Wound Culture - Preliminary - Constitutional no acute distress - *Routine HEENT Exam Head: Present: normocephalic Eye: Present: PERRL ENT: Present: mucous membranes moist - *Routine Neck Exam Present: supple. Absent: lymphadenopathy - *Routine Respiratory Exam Present: CTA bilaterally - *Routine Cardiovascular Exam Present: RRR - *Routine Abdominal Exam Present: soft, normoactive bowel sounds. Absent: tenderness - *Routine Exam Comments: dressing in place - *Routine Extremities Exam Absent: cyanosis, clubbing, edema - *Routine Skin Exam Present: warm. Absent: rash - *Routine Neurological Exam Present: alert, oriented X3 Assessment and Plan (1) Perianal abscess Status: Acute Category: Medical Code(s): K61.0 - Anal abscess (2) Edema of scrotum Status: Acute Category: Medical Code(s): N50.89 - Other specified disorders of the male genital organs (3) Chest wall pain, chronic Status: Acute Category: Medical Code(s): R07.89 - Other chest pain; G89.29 - Other chronic pain (4) Deep venous thrombosis of upper extremity Status: Acute Qualifiers: Qualified Code(s): I82.622 - Acute embolism and thrombosis of deep veins of left upper extremity Category: Medical Code(s): I82.629 - Acute embolism and thrombosis of deep veins of unspecified upper extremity (5) Dependence on supplemental oxygen Status: Acute Tammy
--- NOTE | 2021-11-11 09:59 | SUR.PHASEI ---
0825 detailed report called and given to joon Duque/surgical technologist. HAYLEY Duque informed that pt's blood pressure was lower than pre-operatively due to pt receiving a spinal. AZAEL Novoa is aware of pt's blood pressure and is okay to transport pt to room as long as SBP remained above 90 and DSB remained above 50. 0830 Pt transported to room via bed. Pt vitals stable. Pt transported with O2 tank, 4L O2 NC during transportation. Pt resting comfortably. Left in care of joon Duque/surgical technologist who was currently at pt bedside.
[2021-11-11 10:44] LABS: Uric Acid 12.3 mg/dl (3.5-8.5)
--- NOTE | 2021-11-11 12:04 | HMH.PHACONS ---
- Pharmacy Consult Date: 11/11/21 Time: 12:05 Referring provider: DR. DAMIAN Reason for Consult:: VANCOMYCIN DOSING Allergies and ADEs:: Allergies Allergy/AdvReac Type Severity Reaction Status Date / Time No Known Allergies Allergy Verified 11/10/21 14:28 Home Medications:: Home Medications Medication Instructions Recorded Confirmed Type albuterol sulfate 90 mcg/actuation 2 puff INHALATION Q6H PRN #8.5 g 08/25/20 11/10/21 Rx aerosol inhaler atorvastatin 40 mg tablet 40 mg PO QHS #90 tab 02/19/21 11/10/21 Rx Isosorbide Mononitrate [Imdur 60mg 60 mg PO DAILY 02/23/21 11/10/21 History ER tablet] predniSONE [Deltasone 20mg 20 mg PO DAILY 02/23/21 11/10/21 History tablet] latanoprost 0.005 % eye drops 1 drp OPHTHALMIC DAILY ml 03/24/21 11/10/21 History montelukast 10 mg tablet 10 mg PO DAILY tab 03/24/21 11/10/21 History lorazepam 0.5 mg tablet 0.5 mg PO BID PRN #60 tab 04/17/21 11/10/21 Rx amiodarone 200 mg tablet 200 mg PO DAILY #90 tab 07/13/21 11/10/21 Rx hydrocodone 7.5 mg-acetaminophen 1 tab PO Q8H PRN #90 tab 10/22/21 11/10/21 Rx 325 mg tablet Colchicine 0.6 mg PO DAILY 11/10/21 11/10/21 History Nitroglycerin See Rx Instructions .ROUTE 11/10/21 11/10/21 History .COMPLEX PRN Rivaroxaban [Xarelto] 20 mg PO DAILY 11/10/21 11/11/21 History ipratropium 0.5 mg-albuterol 3 mg 3 ml INHALATION QID PRN #360 ml 11/10/21 11/10/21 Rx (2.5 mg base)/3 mL nebulization soln Dorzolamide HCl/Pf [Dorzolamide 2% 1 drp .ROUTE TID 11/11/21 11/11/21 History Eye Drop] Fluticasone/Umeclidin/Vilanter 1 dose INHALATION DAILY 11/11/21 11/11/21 History [Trelegy Ellipta 200-62.5-25] Pantoprazole Sodium 40 mg PO DAILY 11/11/21 11/11/21 History Torsemide [Demadex 20mg tablet] 40 mg PO BID 11/11/21 11/11/21 History metOLazone [metOLazone 2.5mg 2.5 mg PO DAILY 11/11/21 11/11/21 History Tablet] Height: 1.8 m Weight: 88.25 kg Laboratory Results:: Laboratory Results - last 24 hr 11/10/21 17:00: SARS-CoV-2 (PCR) Not detected, Influenza A Untype (PCR) Not detected, Influenza Type B (PCR) Not detected 11/10/21 17:04: WBC 18.6 H, RBC 3.90 L, Hgb 10.1 L, Hct 31.1 L, MCV 79.6 L, MCH 25.8 L, MCHC 32.5, RDW 17.9 H, Plt Count 264, MPV 9.7, Neut % (Auto) 90.0 H, Lymph % (Auto) 3.5 L, [place] % (Auto) 6.3, Eos % (Auto) 0.1, Baso % (Auto) 0.1, Neut # (Auto) 16.7 H, Lymph # (Auto) 0.6 L, [place] # (Auto) 1.2 H, Eos # (Auto) 0.0, Baso # (Auto) 0.0, Total Counted 100, Neutrophils % (Manual) 89 H, Lymphocytes % (Manual) 6 L, Monocytes % (Manual) 5, Platelet Estimate Normal, Hypochromasia 1+, Anisocytosis 1+, Ovalocytes 2+ 11/10/21 17:04: Sodium 134 L, Potassium 4.3, Chloride 102, Carbon Dioxide 19 L, Anion Gap 17.3 H, BUN 38 H, Creatinine 3.00 H, Estimated Creat Clear 28, Estimated GFR 21 L, Est GFR ( Amer) 25 L, Glucose 114 H, Calcium 8.2 L 11/10/21 17:04: NT-Pro-B Natriuret Pep 27730 H 11/11/21 06:01: WBC 15.0 H, RBC 3.91 L, Hgb 9.7 L, Hct 31.2 L, MCV 79.8 L, MCH 24.9 L, MCHC 31.2 L, RDW 17.7 H, Plt Count 224, MPV 10.0, Neut % (Auto) 89.7 H, Lymph % (Auto) 3.2 L, [place] % (Auto) 6.8, Eos % (Auto) 0.2, Baso % (Auto) 0.2, Neut # (Auto) 13.5 H, Lymph # (Auto) 0.5 L, [place] # (Auto) 1.0, Eos # (Auto) 0.0, Baso # (Auto) 0.0, Total Counted 100, Neutrophils % (Manual) 91 H, Lymphocytes % (Manual) 7 L, Monocytes % (Manual) 2, Platelet Estimate Normal, Hypochromasia 1+, Anisocytosis 1+, Microcytosis 1+ 11/11/21 06:01: Sodium 134 L, Potassium 4.4, Chloride 101, Carbon Dioxide 18 L, Anion Gap 19.4 H, BUN 48 H D, Creatinine 3.10 H, Estimated Creat Clear 27, Estimated GFR 20 L, Est GFR ( Amer) 24 L, Glucose 95, Uric Acid 12.3 H, Calcium 7.8 L, Total Bilirubin 1.3, AST 72 H, ALT 75, Alkaline Phosphatase 212 H, Total Protein 5.7 L, Albumin 3.4 L, Globulin 2.3, Albumin/Globulin Ratio 1.5 Medical History: Reports:: Congestive Heart Failure, Chronic Obstructive Pulmonary Disease (COPD), Coronary Artery Disease, Hyperlipidemia, Hypertension, Inter
--- NOTE | 2021-11-11 15:19 | PC.NURSE ---
spoke with patient and family. no concerns about stay, plan of care or meds. instructed to ring out as needed. did ask for ice water that was retrieved for patient.
--- NOTE | 2021-11-11 19:56 | CA_ITS ---
APPROVED REPORT EXAM: Comprehensive 2D, Doppler, and color-flow Echocardiogram Child Care Sitter: Kristen Carr CRT Ht: 5 ft 11 in Wt: 194lbs BSA: 2.08 BP: 115/55 mmHg Indications: Congestive Heart Failure, COPD, Shortness of Breath, CAD, Hyperlipidemia, Hypertension/HDD, Pacer, stents, Covid 1-22, cellulitis 2D Dimensions LVOT 2.03 cm (M/F) 1.5-2.5 LA Volume 64.20 mL LA Volume Index 30.90 mL/m2 (M/F) 16-34 M-Mode Dimensions RVDd 4.47 cm (0.9-2.6) LA Diam 5.46 cm (1.9-4.0) LVDd 5.10 cm (3.5-5.7) Ao Diam 5.67 cm (2.0-3.7) LVDs 4.36 cm (3.5-5.7) IVSd 2.05 cm (0.6-1.1) PWd 1.17 cm (0.6-1.1) EF (Teich) 30.70% FS 14.50% EDV (Teich) 123.80 mL TAPSE 2.12 (<1.7) ESV (Teich) 85.80 mL LV Diastology MED E' 7.60 (< 7 cm/sec) MED A' 12.40 cm/s LAT E' 8.10 (<10 cm/sec) LAT A' 13.70 cm/s Aortic Valve AO Peak GR. 7.90 mmHg Tricuspid Valve TR P. Velocity 293.00 cm/s RAP Estimate 10.00 mmHg RVSP 44.40 mmHg Left Ventricle Left atrium is mildly enlarged, left ventricle is normal size, mild concentric left ventricular hypertrophy, estimated ejection fraction approximately 40 to 45%, there is abnormal septal motion. Endocardial surfaces are poorly visualized, diastolic parameters are inconclusive. Right Ventricle Right atrium and right ventricle mildly enlarged with normal contractility, there is pacemaker mixed in the right ventricle. Aortic Valve Aortic valve is minimally thickened and fibrosed there is no aortic stenosis or aortic insufficiency. Mitral Valve Mitral valve leaflets are minimally thickened, there is trace mitral regurgitation. Tricuspid Valve Tricuspid grossly normal, there is trace tricuspid regurgitation, tricuspid regurgitation jet velocity is inadequate for calculation of the right ventricular systolic pressure. Pulmonic Valve Pulmonic valve is poorly visualized. Great Vessels Aortic root is normal size. Inferior vena cava is poorly visualized. Pericardium No significant pericardial effusion noted. Conclusion 1. Technically difficult study because of the patient factors and poor acoustic windows. Mild biatrial enlargement, normal left ventricular size, mild concentric left ventricular hypertrophy, visually estimated ejection fraction 40 to 45%, there is abnormal septal motion. Diastolic parameters are inconclusive. 2. Mildly enlarged right ventricle with normal contractility. 3. Trace mitral and tricuspid regurgitation. 4. No significant pericardial effusion. 5. Inferior vena cava is poorly visualized. Electronically signed by : Bhupinder Gardner MD 11/11/2021 20:54:01
--- NOTE | 2021-11-11 20:00 | CA_ITS ---
FINAL REPORT CLINICAL HISTORY: history of dvt upper extremity FINDINGS: Color Doppler, duplex Doppler and compression sonography of the bilateral upper extremity venous system was performed. There is no evidence of venous thrombosis involving the bilateral internal jugular, subclavian or axillary veins. The bilateral brachial, cephalic, radial and ulnar veins are patent without evidence of thrombosis. IMPRESSION: No evidence of venous thrombosis bilateral upper extremities. Reviewed, Interpreted and Dictated by Dewayne Bauman III, MD Transcribed by Jose Johnson Authenticated by Dewayne Bauman III, MD on 11/11/2021 01:05:45 PM [facility]
[2021-11-12] VITALS (9 sets, daily range): BP systolic 130–144; BP diastolic 59–76; PULSE 77–89; RESP 16–20; TEMP 36.4–37.2; O2SAT 3–100; BMI 28.7
--- NOTE | 2021-11-12 06:56 | HMH.GSPN ---
Subjective Patient reports: no new complaints Progress Note: A&P (1) Perianal abscess Status: Acute Assessment and plan: Overall, doing fairly well status post incision and drainage. Dressing changes twice daily Continue antibiotics (2) Edema of scrotum Status: Acute (3) Chest wall pain, chronic Status: Acute (4) Deep venous thrombosis of upper extremity Status: Acute (5) Dependence on supplemental oxygen Status: Acute (6) Dyspnea Status: Acute (7) Heart failure, unspecified Status: Acute (8) History of COVID-19 Status: Acute (9) MRSA infection Status: Acute (10) CHF (congestive heart failure) Status: Chronic (11) Coronary artery disease Status: Chronic (12) HTN (hypertension) Status: Chronic (13) History of cardiac pacemaker in situ Status: Chronic (14) NYHA class 2 heart failure with reduced ejection fraction Status: Chronic (15) SOB (shortness of breath) Status: Chronic (16) Renal abscess Status: Acute (17) Renal failure Status: Chronic Exam Vital signs and Labs for Last 24 Hours: Temp Pulse Resp BP Pulse Ox 98.5 F 82 20 130/75 98 11/12/21 04:00 11/12/21 04:00 11/12/21 04:00 11/12/21 04:00 11/12/21 04:00 Laboratory Results - last 24 hr 11/11/21 06:01: Total Counted 100, Neutrophils % (Manual) 91 H, Lymphocytes % (Manual) 7 L, Monocytes % (Manual) 2, Platelet Estimate Normal, Hypochromasia 1+, Anisocytosis 1+, Microcytosis 1+ 11/11/21 06:01: Carbon Dioxide 18 L, Anion Gap 19.4 H, BUN 48 H D, Creatinine 3.10 H, Estimated Creat Clear 27, Estimated GFR 20 L, Est GFR ( Amer) 24 L, Glucose 95, Uric Acid 12.3 H, Calcium 7.8 L, Total Bilirubin 1.3, AST 72 H, ALT 75, Alkaline Phosphatase 212 H, Total Protein 5.7 L, Albumin 3.4 L, Globulin 2.3, Albumin/Globulin Ratio 1.5 I & O for Last 24 hours: Intake & Output 11/09/21 11/10/21 11/11/21 11/12/21 11:59 11:59 11:59 11:59 Intake Total 1540 / 1540 480 / 480 Output Total 470 / 470 700 / 700 Balance 1070 / 1070 -220 / -220 Weight 194 lb 8.927 oz 205 lb 6.4 oz Microbiology Reports for the Last 24 Hours: Microbiology 11/10/21 16:30 Buttock - Abscess Gram Stain - Final 11/10/21 16:30 Buttock - Abscess Wound Culture - Preliminary - Constitutional no acute distress - *Routine Respiratory Exam Absent: respiratory distress - *Routine Cardiovascular Exam Absent: tachycardia - *Routine Exam Comments: Perianal/perineal dressings in place. No spreading cellulitis. Scrotal edema remains.
[2021-11-12 07:16] LABS: Basophils % 0.1 % (0.1-2.0); Eosinophils # 0.1 K/mm3 (0.0-0.4); Eosinophils % 0.6 % (0.1-12.0); Hematocrit 28.5 % (42.0-52.0); Lymphocytes # 0.5 K/mm3 (0.7-4.5); Lymphocytes % 4.6 % (10-50); Mean Corpuscular HGB Conc 31.6 g/dL (31.8-35.4); Mean Corpuscular Volume 79.3 fl (80-94); Mean Platelet Volume 9.8 fl (7.4-10.4); Monocytes # 0.9 K/mm3 (0.1-1.0); Monocytes % 7.7 % (1.7-9.3); Neutrophils # 9.8 K/mm3 (1.8-7.8); Platelet Count 216 K/mm3 (142-424); Red Blood Count 3.59 M/mm3 (4.60-6.20); Red Cell Distribution Width 17.8 % (11.5-17.5); White Blood Count 11.3 K/mm3 (4.8-10.8)
[2021-11-12 07:20] LABS: Chloride 100 mmol/L (98-107); Potassium 3.9 mmoL/L (3.5-5.1); Sodium 130 mmol/L (136-145)
[2021-11-12 07:23] LABS: Anion Gap 14.9 mEq/L (5-15); Blood Urea Nitrogen 60 mg/dl (9-20); Carbon Dioxide 19 mmol/L (22.0-30.0); Creatinine Clearance Estimated 29 mL/min (50-200); Estimated Glomerular Filt Rate 20 ml/min (>60); GFR (African American) 24 ML/MIN (>60)
[2021-11-12 07:24] LABS: Calcium 6.8 mg/dl (8.4-10.2); Glucose 101 mg/dl (74-100)
[2021-11-12 07:26] LABS: MANUAL DIFFERENTIAL MANUAL DIFFERENTIAL (MANUAL DIFF)
--- NOTE | 2021-11-12 08:39 | HMH.ACPN2 ---
Internal Medicine - PN: Subj *Date: 11/12/21 *Time: 08:39 Interval history: 71-year-old male patient resting quietly in bed with eyes open, he reports increased pain during the night and is still in pain this morning and perineal area. General surgery performed an Incision and drainage of left perianal/perineal abscess yesterday. Packing is in place to perineal area with drainage. He is currently receiving vancomycin and Zosyn IV wound culture currently negative at 24 hours. Exam Vital signs and Labs for Last 24 Hours: Temp Pulse Resp BP Pulse Ox 98.2 F 88 19 130/76 96 11/12/21 11:59 11/12/21 18:05 11/12/21 11:59 11/12/21 11:59 11/12/21 18:05 Laboratory Results - last 24 hr 11/12/21 06:16: WBC 11.3 H, RBC 3.59 L, Hgb 9.0 L, Hct 28.5 L, MCV 79.3 L, MCH 25.0 L, MCHC 31.6 L, RDW 17.8 H, Plt Count 216, MPV 9.8, Neut % (Auto) 87.0 H, Lymph % (Auto) 4.6 L, [place] % (Auto) 7.7, Eos % (Auto) 0.6, Baso % (Auto) 0.1, Neut # (Auto) 9.8 H, Lymph # (Auto) 0.5 L, [place] # (Auto) 0.9, Eos # (Auto) 0.1, Baso # (Auto) 0.0, Total Counted 100, Neutrophils % (Manual) 87 H, Lymphocytes % (Manual) 4 L, Monocytes % (Manual) 9, Platelet Estimate Normal, Hypochromasia 1+, Anisocytosis 1+, Microcytosis 1+ 11/12/21 06:16: Sodium 130 L, Potassium 3.9, Chloride 100, Carbon Dioxide 19 L, Anion Gap 14.9, BUN 60 H, Creatinine 3.10 H, Estimated Creat Clear 29, Estimated GFR 20 L, Est GFR ( Amer) 24 L, Glucose 101 H, Calcium 6.8 L I & O for Last 24 hours: Intake & Output 11/09/21 11/10/21 11/11/21 11/12/21 23:59 23:59 23:59 23:59 Intake Total 240 / 240 1780 / 1780 720 / 720 Output Total 170 / 170 300 / 700 700 / 700 Balance 70 / 70 1480 / 1080 20 / 20 Weight 194 lb 9 oz 194 lb 8.927 oz 205 lb 6.4 oz Microbiology Reports for the Last 24 Hours: Microbiology 11/10/21 17:30 Blood Blood Culture - Preliminary NO GROWTH AFTER 48 HOURS 11/10/21 17:30 Blood Blood Culture - Preliminary NO GROWTH AFTER 48 HOURS 11/11/21 07:55 Buttock - Abscess Surgical Biopsy Culture - Preliminary NO GROWTH AFTER 24 HOURS 11/11/21 07:55 Buttock - Abscess Gram Stain - Final 11/11/21 07:55 Buttock - Abscess Wound Culture - Preliminary Gram Positive Cocci 11/10/21 16:30 Buttock - Abscess Gram Stain - Final 11/10/21 16:30 Buttock - Abscess Wound Culture - Preliminary - Constitutional no acute distress - *Routine Respiratory Exam Present: CTA bilaterally. Absent: accessory muscle use - *Routine Cardiovascular Exam Present: RRR - *Routine Abdominal Exam Present: soft, normoactive bowel sounds. Absent: tenderness, rebound - *Routine Extremities Exam Present: full ROM, pulses intact. Absent: cyanosis, clubbing, edema - *Routine Skin Exam Present: erythema, lesions Comments: Perineal area with packing and dressing covering with drainage. - *Routine Neurological Exam Present: alert, oriented X3. Absent: motor deficit - Routine Psychiatric Exam Present: normal affect, normal thought process. Absent: auditory hallucinations Assessment and Plan (1) Perianal abscess Status: Acute Category: Medical Code(s): K61.0 - Anal abscess (2) Edema of scrotum Status: Acute Category: Medical Code(s): N50.89 - Other specified disorders of the male genital organs (3) Chest wall pain, chronic Status: Acute Category: Medical Code(s): R07.89 - Other chest pain; G89.29 - Other chronic pain (4) Deep venous thrombosis of upper extremity Status: Acute Qualifiers: Affected thrombotic vein of extremity: unspecified vein of extremity Chronicity: acute Laterality: left Qualified Code(s): I82.622 - Acute embolism and thrombosis of deep veins of left upper extremity Category: Medical Code(s): I82.629 - Acute embolism and thrombosis of deep veins of unspecified upper extremity (5)
[2021-11-12 08:48] LABS: Lymphocytes % 4 % (10-50); Monocytes % 9 % (2-9); Neutrophils % 87 % (42-76); Total Cells Counted 100
[2021-11-12 08:51] LABS: Anisocytosis 1+; Hypochromasia 1+; Microcytosis 1+; Platelet Estimate Normal
--- NOTE | 2021-11-12 09:02 | HMH.PNCARD ---
Subjective Date: 11/12/21 Time: 09:02 Principal diagnosis: abscess Interval history: 71 yo WM in bed in NAD. No chest pain or difficulty breathing. States he is beginning to feel better. Echo EF 40-45% with abnormal septal motion. No significant valve disease noted. Pacer interrogated yesterday with no alerts noted. He is pacing in the ventricle nearly 100% of the time. Exam Vital signs and Labs for Last 24 Hours: Temp Pulse Resp BP Pulse Ox 98.5 F 82 20 130/75 98 11/12/21 04:00 11/12/21 04:00 11/12/21 04:00 11/12/21 04:00 11/12/21 04:00 Laboratory Results - last 24 hr 11/11/21 06:01: Uric Acid 12.3 H 11/12/21 06:16: WBC 11.3 H, RBC 3.59 L, Hgb 9.0 L, Hct 28.5 L, MCV 79.3 L, MCH 25.0 L, MCHC 31.6 L, RDW 17.8 H, Plt Count 216, MPV 9.8, Neut % (Auto) 87.0 H, Lymph % (Auto) 4.6 L, [place] % (Auto) 7.7, Eos % (Auto) 0.6, Baso % (Auto) 0.1, Neut # (Auto) 9.8 H, Lymph # (Auto) 0.5 L, [place] # (Auto) 0.9, Eos # (Auto) 0.1, Baso # (Auto) 0.0, Total Counted 100, Neutrophils % (Manual) 87 H, Lymphocytes % (Manual) 4 L, Monocytes % (Manual) 9, Platelet Estimate Normal, Hypochromasia 1+, Anisocytosis 1+, Microcytosis 1+ 11/12/21 06:16: Sodium 130 L, Potassium 3.9, Chloride 100, Carbon Dioxide 19 L, Anion Gap 14.9, BUN 60 H, Creatinine 3.10 H, Estimated Creat Clear 29, Estimated GFR 20 L, Est GFR ( Amer) 24 L, Glucose 101 H, Calcium 6.8 L I & O for Last 24 hours: Intake & Output 11/09/21 11/10/21 11/11/21 11/12/21 11:59 11:59 11:59 11:59 Intake Total 1540 / 1540 480 / 480 Output Total 470 / 470 700 / 700 Balance 1070 / 1070 -220 / -220 Weight 194 lb 8.927 oz 205 lb 6.4 oz Microbiology Reports for the Last 24 Hours: Microbiology 11/11/21 07:55 Buttock - Abscess Surgical Biopsy Culture - Preliminary NO GROWTH AFTER 24 HOURS 11/11/21 07:55 Buttock - Abscess Wound Culture - Preliminary NO GROWTH AFTER 24 HOURS 11/10/21 16:30 Buttock - Abscess Gram Stain - Final 11/10/21 16:30 Buttock - Abscess Wound Culture - Preliminary - Constitutional no acute distress - *Routine HEENT Exam Head: Present: normocephalic Eye: Present: EOMI, PERRL ENT: Present: mucous membranes moist - *Routine Neck Exam Present: supple. Absent: lymphadenopathy - *Routine Respiratory Exam Present: CTA bilaterally - *Routine Cardiovascular Exam Present: RRR - *Routine Abdominal Exam Present: soft, normoactive bowel sounds. Absent: tenderness - *Routine Exam Penile: Present: swelling Scrotal: Present: swelling - *Routine Extremities Exam Absent: cyanosis, clubbing, edema - *Routine Skin Exam Present: warm. Absent: rash - *Routine Neurological Exam Present: alert, oriented X3 Progress Note: A&P (1) Perianal abscess Status: Acute (2) Edema of scrotum Status: Acute (3) Chest wall pain, chronic Status: Acute (4) Deep venous thrombosis of upper extremity Status: Acute (5) Dependence on supplemental oxygen Status: Acute (6) Dyspnea Status: Acute (7) Heart failure, unspecified Status: Acute (8) History of COVID-19 Status: Acute (9) MRSA infection Status: Acute (10) CHF (congestive heart failure) Status: Chronic (11) Coronary artery disease Status: Chronic (12) HTN (hypertension) Status: Chronic (13) History of cardiac pacemaker in situ Status: Chronic (14) NYHA class 2 heart failure with reduced ejection fraction Status: Chronic (15) SOB (shortness of breath) Status: Chronic (16) Renal abscess Status: Acute (17) Renal failure Status: Chronic Assessment and Plan for All Diagnoses:: 1. Perirectal/perianal abscess, status post I&D, per surgery 2. Scrotal swelling, evaluation per urology feels this is likely related to either current infectious process or history of heart failure. 3. Elevated BNP in a patient with known history of heart f
--- NOTE | 2021-11-12 17:14 | HMH.CONFU ---
Internal Medicine - PN: Subj *Date: 11/12/21 *Time: 17:14 Interval history: Patient is a 71-year-old white male with recent penoscrotal edema and a left-sided buttock abscess. He is feeling better than on his admission 2 days ago and his white count has improved. His renal function continues to be elevated. CT scan performed on November 10 show significant soft tissue swelling of the scrotum and perineum soft tissues. His buttock lesion is being treated with wound packing. Is scrotum is less tense than 2 days ago in the scrotum is significantly less edematous. Exam Vital signs and Labs for Last 24 Hours: Temp Pulse Resp BP Pulse Ox 98.2 F 83 19 130/76 97 11/12/21 11:59 11/12/21 11:59 11/12/21 11:59 11/12/21 11:59 11/12/21 11:59 Laboratory Results - last 24 hr 11/12/21 06:16: WBC 11.3 H, RBC 3.59 L, Hgb 9.0 L, Hct 28.5 L, MCV 79.3 L, MCH 25.0 L, MCHC 31.6 L, RDW 17.8 H, Plt Count 216, MPV 9.8, Neut % (Auto) 87.0 H, Lymph % (Auto) 4.6 L, [place] % (Auto) 7.7, Eos % (Auto) 0.6, Baso % (Auto) 0.1, Neut # (Auto) 9.8 H, Lymph # (Auto) 0.5 L, [place] # (Auto) 0.9, Eos # (Auto) 0.1, Baso # (Auto) 0.0, Total Counted 100, Neutrophils % (Manual) 87 H, Lymphocytes % (Manual) 4 L, Monocytes % (Manual) 9, Platelet Estimate Normal, Hypochromasia 1+, Anisocytosis 1+, Microcytosis 1+ 11/12/21 06:16: Sodium 130 L, Potassium 3.9, Chloride 100, Carbon Dioxide 19 L, Anion Gap 14.9, BUN 60 H, Creatinine 3.10 H, Estimated Creat Clear 29, Estimated GFR 20 L, Est GFR ( Amer) 24 L, Glucose 101 H, Calcium 6.8 L I & O for Last 24 hours: Intake & Output 11/09/21 11/10/21 11/11/21 11/12/21 23:59 23:59 23:59 23:59 Intake Total 240 / 240 1780 / 1780 720 / 720 Output Total 170 / 170 300 / 700 700 / 700 Balance 70 / 70 1480 / 1080 20 20 Weight 88.252 kg 88.25 kg 93.168 kg Microbiology Reports for the Last 24 Hours: Microbiology 11/11/21 07:55 Buttock - Abscess Surgical Biopsy Culture - Preliminary NO GROWTH AFTER 24 HOURS 11/11/21 07:55 Buttock - Abscess Gram Stain - Final 11/11/21 07:55 Buttock - Abscess Wound Culture - Preliminary Gram Positive Cocci 11/10/21 16:30 Buttock - Abscess Gram Stain - Final 11/10/21 16:30 Buttock - Abscess Wound Culture - Preliminary - *Routine Respiratory Exam Absent: accessory muscle use - *Routine Cardiovascular Exam Absent: JVD - *Routine Abdominal Exam Present: soft, normoactive bowel sounds. Absent: tenderness - *Routine Exam Comments: Scrotum is still edematous but less so than 2 days ago. There is some ecchymosis of the anterior and posterior skin due to the previous tension from the swelling. The penile swelling has markedly improved. There is no evidence of any open or infectious areas on the scrotum. - *Routine Extremities Exam Absent: cyanosis, clubbing, edema - *Routine Skin Exam Present: warm. Absent: rash - *Routine Neurological Exam Present: alert, oriented X3 Assessment and Plan (1) Perianal abscess Status: Acute Category: Medical Code(s): K61.0 - Anal abscess (2) Edema of scrotum Status: Acute Category: Medical Code(s): N50.89 - Other specified disorders of the male genital organs Penoscrotal edema is improving. Continue scrotal elevation. (3) Chest wall pain, chronic Status: Acute Category: Medical Code(s): R07.89 - Other chest pain; G89.29 - Other chronic pain (4) Deep venous thrombosis of upper extremity Status: Acute Qualifiers: Affected thrombotic vein of extremity: unspecified vein of extremity Chronicity: acute Laterality: left Qualified Code(s): I82.622 - Acute embolism and thrombosis of deep veins of left upper extremity Category: Medical Code(s): I82.629 - Acute embolism and thrombosis of deep veins of unspecified upper extremity (5) Dependence on supplemental oxygen Status: Acute Category: Medical Code(s): Z99.81
[2021-11-13] VITALS (11 sets, daily range): BP systolic 105–143; BP diastolic 56–77; PULSE 54–94; RESP 15–20; TEMP 36.3–37.1; O2SAT 94–100; BMI 29.5
[2021-11-13 06:26] LABS: Eosinophils # 0.1 K/mm3 (0.0-0.4); Eosinophils % 0.7 % (0.1-12.0); Hematocrit 30.4 % (42.0-52.0); Hemoglobin 9.4 g/dL (14.1-18.0); Lymphocytes # 0.7 K/mm3 (0.7-4.5); Lymphocytes % 5.1 % (10-50); Mean Corpuscular HGB Conc 30.8 g/dL (31.8-35.4); Mean Corpuscular Hemoglobin 24.8 pg (27.0-31.2); Mean Corpuscular Volume 80.5 fl (80-94); Mean Platelet Volume 10.4 fl (7.4-10.4); Monocytes % 7.2 % (1.7-9.3); Neutrophils # 11.4 K/mm3 (1.8-7.8); Platelet Count 206 K/mm3 (142-424); Red Blood Count 3.78 M/mm3 (4.60-6.20); Red Cell Distribution Width 17.8 % (11.5-17.5); White Blood Count 13.1 K/mm3 (4.8-10.8)
[2021-11-13 06:49] LABS: MANUAL DIFFERENTIAL MANUAL DIFFERENTIAL (MANUAL DIFF)
--- NOTE | 2021-11-13 07:01 | PC.NURSE ---
0400 0 changes from initial assessment. Pt has slept most of this shift. Reported that he did have pain and was medicated. Wound care performed with slight discomfort. Pt able to assist with turning in bed. Scrotum remains dark purple in color and reports tenderness with palpation. Attempted to elevate with a towel. Noted that the skin of the scrotum appears sheared and covered with abd to prevent further breakdown and discomfort.
[2021-11-13 07:47] LABS: Lymphocytes % 7 % (10-50); Monocytes % 3 % (2-9); Neutrophils % 90 % (42-76); Total Cells Counted 100
[2021-11-13 07:48] LABS: Anisocytosis 1+; Hypochromasia 1+; Microcytosis 1+; Platelet Estimate Normal
--- NOTE | 2021-11-13 08:24 | HMH.GSPN ---
Subjective Patient reports: no new complaints Progress Note: A&P (1) Perianal abscess Status: Acute Assessment and plan: No changes consistent with necrotizing soft tissue infection or spreading cellulitis. Continue dressing changes and antibiotics (2) Edema of scrotum Status: Acute (3) Chest wall pain, chronic Status: Acute (4) Deep venous thrombosis of upper extremity Status: Acute (5) Dependence on supplemental oxygen Status: Acute (6) Dyspnea Status: Acute (7) Heart failure, unspecified Status: Acute (8) History of COVID-19 Status: Acute (9) MRSA infection Status: Acute (10) CHF (congestive heart failure) Status: Chronic (11) Coronary artery disease Status: Chronic (12) HTN (hypertension) Status: Chronic (13) History of cardiac pacemaker in situ Status: Chronic (14) NYHA class 2 heart failure with reduced ejection fraction Status: Chronic (15) SOB (shortness of breath) Status: Chronic (16) Renal abscess Status: Acute (17) Renal failure Status: Chronic Exam Vital signs and Labs for Last 24 Hours: Temp Pulse Resp BP Pulse Ox 98.4 F 63 17 113/56 L 98 11/13/21 04:00 11/13/21 06:26 11/13/21 04:00 11/13/21 04:00 11/13/21 06:26 Laboratory Results - last 24 hr 11/12/21 06:16: Total Counted 100, Neutrophils % (Manual) 87 H, Lymphocytes % (Manual) 4 L, Monocytes % (Manual) 9, Platelet Estimate Normal, Hypochromasia 1+, Anisocytosis 1+, Microcytosis 1+ 11/13/21 06:11: WBC 13.1 H, RBC 3.78 L, Hgb 9.4 L, Hct 30.4 L, MCV 80.5, MCH 24.8 L, MCHC 30.8 L, RDW 17.8 H, Plt Count 206, MPV 10.4, Neut % (Auto) 87.0 H, Lymph % (Auto) 5.1 L, [place] % (Auto) 7.2, Eos % (Auto) 0.7, Baso % (Auto) 0.0 L, Neut # (Auto) 11.4 H, Lymph # (Auto) 0.7, [place] # (Auto) 1.0, Eos # (Auto) 0.1, Baso # (Auto) 0.0, Total Counted 100, Neutrophils % (Manual) 90 H, Lymphocytes % (Manual) 7 L, Monocytes % (Manual) 3, Platelet Estimate Normal, Hypochromasia 1+, Anisocytosis 1+, Microcytosis 1+ I & O for Last 24 hours: Intake & Output 11/10/21 11/11/21 11/12/21 11/13/21 11:59 11:59 11:59 11:59 Intake Total 1540 / 1540 1200 / 1200 600 / 600 Output Total 470 / 470 700 / 700 1600 / 1600 Balance 1070 / 1070 500 / 500 -1000 / -1000 Weight 194 lb 8.927 oz 205 lb 6.4 oz 210 lb 14.4 oz Microbiology Reports for the Last 24 Hours: Microbiology 11/10/21 16:30 Buttock - Abscess Gram Stain - Final 11/10/21 16:30 Buttock - Abscess Wound Culture - Preliminary Gram Positive Cocci Gram Positive Cocci#2 11/11/21 07:55 Buttock - Abscess Gram Stain - Final 11/11/21 07:55 Buttock - Abscess Surgical Biopsy Culture - Preliminary 11/11/21 07:55 Buttock - Abscess Gram Stain - Final 11/11/21 07:55 Buttock - Abscess Wound Culture - Final Staphylococcus aureus 11/11/21 07:55 Buttock - Abscess - Final 11/10/21 17:30 Blood Blood Culture - Preliminary NO GROWTH AFTER 48 HOURS 11/10/21 17:30 Blood Blood Culture - Preliminary NO GROWTH AFTER 48 HOURS - Constitutional no acute distress - *Routine Respiratory Exam Absent: respiratory distress - *Routine Cardiovascular Exam Absent: tachycardia - *Routine Skin Exam Comments: Perianal/perineal abscess margin without spreading cellulitis.
--- NOTE | 2021-11-13 08:29 | XR_ITS ---
FINAL REPORT CLINICAL HISTORY: Confirm PICC line placement COMPARISON: November 10, 2021 FINDINGS: SINGLE VIEW CHEST. A new right PICC line is present and courses superiorly into the right neck. The tip is not seen but is likely within the internal jugular vein. There is cardiomegaly. A left subclavian pacemaker is present. The mediastinum is unremarkable. There is mild bibasilar atelectasis. There is no pneumothorax. There are mild vascular calcifications. IMPRESSION: A new right PICC line is present with the tip likely within the internal jugular vein. PICC line placement was called to patient's nurse, Yanelis, at the time of interpretation. Reviewed, Interpreted and Dictated by Dewayne Bauman III, MD Transcribed by Catherine Hein Authenticated by Dewayne Bauman III, MD on 11/13/2021 11:28:15 AM [facility]
[2021-11-13 08:39] LABS: Chloride 102 mmol/L (98-107); Sodium 131 mmol/L (136-145)
[2021-11-13 08:40] LABS: Potassium 4.4 mmoL/L (3.5-5.1)
[2021-11-13 08:43] LABS: Anion Gap 15.4 mEq/L (5-15); Blood Urea Nitrogen 74 mg/dl (9-20); Calcium 6.6 mg/dl (8.4-10.2); Carbon Dioxide 18 mmol/L (22.0-30.0); Creatinine Clearance Estimated 29 mL/min (50-200); Estimated Glomerular Filt Rate 19 ml/min (>60); GFR (African American) 23 ML/MIN (>60); Glucose 114 mg/dl (74-100)
--- NOTE | 2021-11-13 09:42 | HMH.OTEV ---
OT Inpatient Evaluation Rehab OT IP Evaluation Start: 11/13/21 08:28 Freq: ONCE Status: Complete Protocol: Document 11/13/21 09:31 [email or web address] (Rec: 11/13/21 09:42 [email or web address] [id number]) Rehab OT IP Assessment Subjective History Patient is a 71-year-old white male, known to me from the office, who was admitted with Vitas of the left buttocks associated with pain and marked scrotal edema with penile swelling. Patient relays a history of MRSA buttock infection, right-sided , requiring incision and drainage several years ago at [facility] in [place]. Patient relays increasing redness and tenderness at the inferior aspect of the left buttocks over the last 2 days. Was recently associated with marked scrotal and penile edema. Patient was seen in consultation per Dr. James. Patient has a history of congestive heart failure and chronic renal insufficiency. His brain natruretic peptide was markedly elevated. Patient has history of coronary artery disease, stent deployment, and refractory chest wall discomfort. Patient has a history of severe gout with tophus formation. Patient has a history of COPD oxygen dependence. Patient has history of Covid pneumonia, quired hospitalization in August of this year. During the course of his stay he developed a DVT in the left upper extremity, for which he was placed on Xarelto. Given patient's presentation, acute changes on physical exam, and constellation of comorbid features I elected to admit him for further treatment, including IV antibiotics,
--- NOTE | 2021-11-13 10:01 | HMH.ACPN2 ---
Internal Medicine - PN: Subj *Date: 11/13/21 *Time: 08:00 Interval history: pt states he is feeling better just soreness Exam Vital signs and Labs for Last 24 Hours: Temp Pulse Resp BP Pulse Ox 98.5 F 69 17 124/69 94 L 11/13/21 08:00 11/13/21 08:00 11/13/21 08:00 11/13/21 08:00 11/13/21 08:00 Laboratory Results - last 24 hr 11/13/21 06:11: WBC 13.1 H, RBC 3.78 L, Hgb 9.4 L, Hct 30.4 L, MCV 80.5, MCH 24.8 L, MCHC 30.8 L, RDW 17.8 H, Plt Count 206, MPV 10.4, Neut % (Auto) 87.0 H, Lymph % (Auto) 5.1 L, [place] % (Auto) 7.2, Eos % (Auto) 0.7, Baso % (Auto) 0.0 L, Neut # (Auto) 11.4 H, Lymph # (Auto) 0.7, [place] # (Auto) 1.0, Eos # (Auto) 0.1, Baso # (Auto) 0.0, Total Counted 100, Neutrophils % (Manual) 90 H, Lymphocytes % (Manual) 7 L, Monocytes % (Manual) 3, Platelet Estimate Normal, Hypochromasia 1+, Anisocytosis 1+, Microcytosis 1+ 11/13/21 06:11: Sodium 131 L, Potassium 4.4, Chloride 102, Carbon Dioxide 18 L, Anion Gap 15.4 H, BUN 74 H, Creatinine 3.20 H, Estimated Creat Clear 29, Estimated GFR 19 L*, Est GFR ( Amer) 23 L, Glucose 114 H, Calcium 6.6 L I & O for Last 24 hours: Intake & Output 11/10/21 11/11/21 11/12/21 11/13/21 11:59 11:59 11:59 11:59 Intake Total 1540 / 1540 1200 / 1200 1080 / 1080 Output Total 470 / 470 700 / 700 1600 / 1600 Balance 1070 / 1070 500 / 500 -520 / -520 Weight 194 lb 8.927 oz 205 lb 6.4 oz 210 lb 14.4 oz Microbiology Reports for the Last 24 Hours: Microbiology 11/10/21 16:30 Buttock - Abscess Gram Stain - Final 11/10/21 16:30 Buttock - Abscess Wound Culture - Preliminary Gram Positive Cocci Gram Positive Cocci#2 11/11/21 07:55 Buttock - Abscess Gram Stain - Final 11/11/21 07:55 Buttock - Abscess Surgical Biopsy Culture - Preliminary 11/11/21 07:55 Buttock - Abscess Gram Stain - Final 11/11/21 07:55 Buttock - Abscess Wound Culture - Final Staphylococcus aureus 11/11/21 07:55 Buttock - Abscess - Final 11/10/21 17:30 Blood Blood Culture - Preliminary NO GROWTH AFTER 48 HOURS 11/10/21 17:30 Blood Blood Culture - Preliminary NO GROWTH AFTER 48 HOURS - Constitutional no acute distress - *Routine HEENT Exam Head: Present: normocephalic Eye: Present: PERRL ENT: Present: mucous membranes moist - *Routine Neck Exam Present: supple. Absent: lymphadenopathy - *Routine Respiratory Exam Present: CTA bilaterally - *Routine Cardiovascular Exam Present: RRR - *Routine Abdominal Exam Present: soft, normoactive bowel sounds. Absent: tenderness - *Routine Exam Testicular: Bilateral swelling, Bilateral tenderness Scrotal: Present: swelling, tenderness, erythema Groin: Present: swelling, erythema Perineal: Present: erythema, induration, tenderness Comments: packing in place, redness slight improvement, open area on scrotum, - *Routine Extremities Exam Absent: cyanosis, clubbing, edema - *Routine Skin Exam Present: warm, wounds. Absent: rash - *Routine Neurological Exam Present: alert, oriented X3 Assessment and Plan (1) Perianal abscess Status: Acute Category: Medical Code(s): K61.0 - Anal abscess staphylococcus aureus in wound cx- on vanc (2) Edema of scrotum Status: Acute Category: Medical Code(s): N50.89 - Other specified disorders of the male genital organs (3) Chest wall pain, chronic Status: Acute Category: Medical Code(s): R07.89 - Other chest pain; G89.29 - Other chronic pain (4) Deep venous thrombosis of upper extremity Status: Acute Qualifiers: Affected thrombotic vein of extremity: unspecified vein of extremity Chronicity: acute Laterality: left Qualified Code(s): I82.622 - Acute embolism and thrombosis of deep veins of left upper extremity Category: Medical Code(s): I82.629 - Acute embolism and thrombosis of deep
--- NOTE | 2021-11-13 10:12 | HMH.PTEV ---
Physical Therapy Evaluation Rehab PT IP Evaluation Start: 11/13/21 08:28 Freq: ONCE Status: Active Protocol: Document 11/13/21 10:04 ABDULLAHIELIS (Rec: 11/13/21 10:12 WILL [id number]) Subjective/History History History Patient is a 71 year old male admitted to [facility] secondary to anal and penile abscesses. Patient reports that he previously lived at home with his . He was independent with transfers, but required a wheelchair for locomotion. Subjective Subjective I just feel tired and weak because I haven't been up for a few days. Rehab PT IP Eval Objective Appearance Patient Behavior Appropriate,Cooperative Patient Orientation Person,Place,Birthday Difficulty following instructions none Speech Pattern Clear,Appropriate Ambulation Patient Able to Ambulate Yes Balance Ability to Arise Able, uses arms to help Sitting Balance Leans or slides in chair Standing Balance Unsteady Dynamic Sitting Balance Ability Poor Dynamic Standing Balance Ability Poor Transfers Bed Transfer Ability Moderate x 2 (50% assist) Chair Transfer Ability Moderate x 2 (50% assist) Sit to Stand Bed Transfer Ability Moderate x 2 (50% assist) Sit to Stand Chair Transfer Ability Moderate x 2 (50% assist) ROM All Extremities PT ROM Status WFL MMT All Extremities PT MMT ABN Rehab PT IP prob,goals,plan Problems Date of Evaluation: 11/13/21 PT IP Problems Bed Mobility,Transfers,Gait, Balance,Self care,Safety Rehab Potential Rehab Potential Fair Equipment Needs Assistive Devices Rolling / Wheeled Walker Plan PT Intervention Plan Bed Mobility,Transfers,Gait, Balance,Self care,Safety, Therapeutic Exercise PT Plan Frequency BID Duration LOS Discharge Goals Bed Transfer Ability Minimal x 2 (25% assist) Sit to Stand Chair Transfer Ability Minimal x 2 (25% assist) Ambulation Assistive Device Rolling Walker Ambulation Distance (feet) 20 Discharge Plan PT Discharge Plan Patient to discharge home once found medically stable by . G -code Required No PHYSICIAN CERTIFICATION: I certify the specified therapy services for Adeel Johnston are required, authorized, and reviewed every 30 days.
--- NOTE | 2021-11-13 11:06 | SW/DCPLANNER ---
Addendum entered by [facility] 11/23/21 09:37: Updated patient information has been faxed to Tiffani godoy/ [facility]: patient is not medically stable for discharge at this time. Addendum entered by [facility] 11/19/21 11:16: Dr Huber has stated that patient is not medically stable for discharge today. I have notified Tiffani godoy/ [facility] that patient will not discharge today. Tiffani has stated that patient will require a new precert after today. Addendum entered by [facility] 11/19/21 10:00: This patient will discharge to [facility] today. Tiffani Rodriguez is aware of discharge plan and COVID swab is not needed at time of discharge. Addendum entered by [facility] 11/18/21 11:15: Tiffani godoy/ [facility] stated that precert is still pending at this time. Addendum entered by [facility] 11/17/21 10:42: Updated patient information has been faxed to Tiffani Rodriguez with [facility]. Precert for admission will be started on this patient today. Addendum entered by [facility] 11/16/21 09:43: Updated patient information has been faxed to Tiffani Rodriguez jayne/ [facility]. I have informed Tiffani that patient is not ready for discharge/precert to be started at this time per MD. I will follow up with Tiffani tomorrow morning. Addendum entered by [facility] 11/13/21 14:10: Tiffani godoy/ [facility] stated that she can accept this patient once medically stable for discharge. This patient will require a precert prior to admission. Addendum entered by [facility] 11/13/21 13:05: Patient and are agreeable with information being faxed to [facility] in case placement is needed at time of discharge. I have informed Tiffani godoy/ [facility] regarding referral. Original Note: During rounds with Dr Miller this AM he discussed the need for alf IV antibiotics at discharge. Patient stated that he resides at home with his and intends on returning back home. Patient will need IV Vanc Q36 hours once medically stable for discharge. Patient will not be ready for discharge till early next week. The goal for this patient would be to discharge home with home health services for IV antibiotics,PT/OT. I will follow up with patient and his once medically stable for discharge.
--- NOTE | 2021-11-13 12:39 | DIET.NUTRFU ---
Pt PO intake good with 75 and 100% at last two recorded meals. Pt reports that he is feeling better. Plan to place picc line for IV antibiotics. Will continue to monitor.
--- NOTE | 2021-11-13 13:09 | HMH.ANESII ---
[facility] Anesthesia Record Part II Discharge Time: 08:30 Destination: Surgical Day Care (OP Surgery) PACU nurse assessment reviewed?: Yes Patient Condition:: Good Anesthesia Complications:: None Swallowing reflex intact?: Yes Cyanosis?: No Blood Pressure: 105/64 Pulse Rate: 94 Temperature: 97.4 F Mental Status: Alert & Oriented Pain level:: 0 Nausea and/or vomitting:: None Intake, IV Amount: 0
--- NOTE | 2021-11-13 13:48 | XR_ITS ---
FINAL REPORT CLINICAL HISTORY: PICC placement COMPARISON: 11/10/2021 FINDINGS: SINGLE-VIEW CHEST There is cardiomegaly and pulmonary vascular congestion. The mediastinum is normal. New right PICC line tip terminates in the lower SVC. There is no pneumothorax. IMPRESSION: New right PICC line terminates in the SVC. Reviewed, Interpreted and Dictated by Dewayne Bauman III, MD Transcribed by Homa Palomino Authenticated by Dewayne Bauman III, MD on 11/13/2021 02:34:04 PM [facility]
--- NOTE | 2021-11-13 13:57 | PC.NURSE ---
PICC placed waiting on xray placement confirmation
--- NOTE | 2021-11-13 16:05 | HMH.CONFU ---
Internal Medicine - PN: Subj *Date: 11/13/21 *Time: 16:05 Interval history: Patient is a 71-year-old white male with penoscrotal edema and left gluteal abscess. His white count is 13,000 today and is renal function still elevated at 3.1. The penile edema has largely resolved but the scrotal edema has improved but the significant swelling has caused some skin sloughing which is weeping some fluid. Overall he is feeling better. Exam Vital signs and Labs for Last 24 Hours: Temp Pulse Resp BP Pulse Ox 98.7 F 60 18 120/70 100 11/13/21 15:49 11/13/21 15:49 11/13/21 15:49 11/13/21 15:49 11/13/21 15:49 Laboratory Results - last 24 hr 11/13/21 06:11: WBC 13.1 H, RBC 3.78 L, Hgb 9.4 L, Hct 30.4 L, MCV 80.5, MCH 24.8 L, MCHC 30.8 L, RDW 17.8 H, Plt Count 206, MPV 10.4, Neut % (Auto) 87.0 H, Lymph % (Auto) 5.1 L, [place] % (Auto) 7.2, Eos % (Auto) 0.7, Baso % (Auto) 0.0 L, Neut # (Auto) 11.4 H, Lymph # (Auto) 0.7, [place] # (Auto) 1.0, Eos # (Auto) 0.1, Baso # (Auto) 0.0, Total Counted 100, Neutrophils % (Manual) 90 H, Lymphocytes % (Manual) 7 L, Monocytes % (Manual) 3, Platelet Estimate Normal, Hypochromasia 1+, Anisocytosis 1+, Microcytosis 1+ 11/13/21 06:11: Sodium 131 L, Potassium 4.4, Chloride 102, Carbon Dioxide 18 L, Anion Gap 15.4 H, BUN 74 H, Creatinine 3.20 H, Estimated Creat Clear 29, Estimated GFR 19 L*, Est GFR ( Amer) 23 L, Glucose 114 H, Calcium 6.6 L I & O for Last 24 hours: Intake & Output 11/10/21 11/11/21 11/12/21 11/13/21 23:59 23:59 23:59 23:59 Intake Total 240 / 240 1780 / 1780 1320 / 1320 960 / 960 Output Total 170 / 170 300 / 700 950 / 2300 1350 / 1350 Balance 70 / 70 1480 / 1080 370 / -980 -390 / -390 Weight 88.252 kg 88.25 kg 93.168 kg 95.663 kg Microbiology Reports for the Last 24 Hours: Microbiology 11/10/21 16:30 Buttock - Abscess Gram Stain - Final 11/10/21 16:30 Buttock - Abscess Wound Culture - Preliminary Gram Positive Cocci Gram Positive Cocci#2 11/11/21 07:55 Buttock - Abscess Gram Stain - Final 11/11/21 07:55 Buttock - Abscess Surgical Biopsy Culture - Preliminary 11/11/21 07:55 Buttock - Abscess Gram Stain - Final 11/11/21 07:55 Buttock - Abscess Wound Culture - Final Staphylococcus aureus 11/11/21 07:55 Buttock - Abscess - Final 11/10/21 17:30 Blood Blood Culture - Preliminary NO GROWTH AFTER 48 HOURS 11/10/21 17:30 Blood Blood Culture - Preliminary NO GROWTH AFTER 48 HOURS - Constitutional no acute distress - *Routine HEENT Exam Head: Present: normocephalic Eye: Present: EOMI, PERRL ENT: Present: mucous membranes moist - *Routine Neck Exam Present: supple. Absent: lymphadenopathy - *Routine Respiratory Exam Absent: accessory muscle use - *Routine Cardiovascular Exam Absent: JVD - *Routine Abdominal Exam Present: soft, normoactive bowel sounds. Absent: tenderness - *Routine Exam Comments: There is some interval swelling of the suprapubic region above the penis. The penile edema is largely resolved but the scrotal edema still present. There is some weeping of the tissue from the significant skin sloughing caused by the previous massive swelling. - *Routine Extremities Exam Absent: cyanosis, clubbing, edema - *Routine Skin Exam Present: warm. Absent: rash - *Routine Neurological Exam Present: alert, oriented X3 Assessment and Plan (1) Perianal abscess Status: Acute Category: Medical Code(s): K61.0 - Anal abscess (2) Edema of scrotum Status: Acute Category: Medical Code(s): N50.89 - Other specified disorders of the male genital organs Scrotal edema is stable. Continue scrotal elevation. Interval improvement of the penile edema. If patient goes home over the weekend please have him follow-up with me in 2 to 3 weeks. 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
--- NOTE | 2021-11-13 16:22 | HMH.PNCARD ---
Subjective Date: 11/13/21 Time: 16:22 Principal diagnosis: abscess Interval history: 71-year-old white male in bed in no acute distress. Patient relates complaints of fatigue but otherwise no chest pain pressure or tightness. He does have some shortness of breath and some lower extremity edema. Exam Vital signs and Labs for Last 24 Hours: Temp Pulse Resp BP Pulse Ox 98.7 F 60 18 120/70 100 11/13/21 15:49 11/13/21 15:49 11/13/21 15:49 11/13/21 15:49 11/13/21 15:49 Laboratory Results - last 24 hr 11/13/21 06:11: WBC 13.1 H, RBC 3.78 L, Hgb 9.4 L, Hct 30.4 L, MCV 80.5, MCH 24.8 L, MCHC 30.8 L, RDW 17.8 H, Plt Count 206, MPV 10.4, Neut % (Auto) 87.0 H, Lymph % (Auto) 5.1 L, [place] % (Auto) 7.2, Eos % (Auto) 0.7, Baso % (Auto) 0.0 L, Neut # (Auto) 11.4 H, Lymph # (Auto) 0.7, [place] # (Auto) 1.0, Eos # (Auto) 0.1, Baso # (Auto) 0.0, Total Counted 100, Neutrophils % (Manual) 90 H, Lymphocytes % (Manual) 7 L, Monocytes % (Manual) 3, Platelet Estimate Normal, Hypochromasia 1+, Anisocytosis 1+, Microcytosis 1+ 11/13/21 06:11: Sodium 131 L, Potassium 4.4, Chloride 102, Carbon Dioxide 18 L, Anion Gap 15.4 H, BUN 74 H, Creatinine 3.20 H, Estimated Creat Clear 29, Estimated GFR 19 L*, Est GFR ( Amer) 23 L, Glucose 114 H, Calcium 6.6 L I & O for Last 24 hours: Intake & Output 11/11/21 11/12/21 11/13/21 11/14/21 11:59 11:59 11:59 11:59 Intake Total 1540 / 1540 1200 / 1200 1200 / 1200 360 / 360 Output Total 470 / 470 700 / 700 1600 / 1600 Balance 1070 / 1070 500 / 500 -400 / -400 360 / 360 Weight 194 lb 8.927 oz 205 lb 6.4 oz 210 lb 14.4 oz Microbiology Reports for the Last 24 Hours: Microbiology 11/10/21 16:30 Buttock - Abscess Gram Stain - Final 11/10/21 16:30 Buttock - Abscess Wound Culture - Preliminary Gram Positive Cocci Gram Positive Cocci#2 11/11/21 07:55 Buttock - Abscess Gram Stain - Final 11/11/21 07:55 Buttock - Abscess Surgical Biopsy Culture - Preliminary 11/11/21 07:55 Buttock - Abscess Gram Stain - Final 11/11/21 07:55 Buttock - Abscess Wound Culture - Final Staphylococcus aureus 11/11/21 07:55 Buttock - Abscess - Final 11/10/21 17:30 Blood Blood Culture - Preliminary NO GROWTH AFTER 48 HOURS 11/10/21 17:30 Blood Blood Culture - Preliminary NO GROWTH AFTER 48 HOURS - Constitutional no acute distress - *Routine Respiratory Exam Present: CTA bilaterally - *Routine Cardiovascular Exam Present: RRR - *Routine Extremities Exam Present: edema. Absent: cyanosis, clubbing - *Routine Neurological Exam Present: alert, oriented X3 Progress Note: A&P (1) Perianal abscess Status: Acute (2) Edema of scrotum Status: Acute (3) Chest wall pain, chronic Status: Acute (4) Deep venous thrombosis of upper extremity Status: Acute (5) Dependence on supplemental oxygen Status: Acute (6) Dyspnea Status: Acute (7) Heart failure, unspecified Status: Acute (8) History of COVID-19 Status: Acute (9) MRSA infection Status: Acute (10) CHF (congestive heart failure) Status: Chronic (11) Coronary artery disease Status: Chronic (12) HTN (hypertension) Status: Chronic (13) History of cardiac pacemaker in situ Status: Chronic (14) NYHA class 2 heart failure with reduced ejection fraction Status: Chronic (15) SOB (shortness of breath) Status: Chronic (16) Renal abscess Status: Acute (17) Renal failure Status: Chronic Assessment and Plan for All Diagnoses:: 1. Perirectal/perianal abscess, status post I&D, per surgery 2. Scrotal swelling, evaluation per urology feels this is likely related to either current infectious process or history of heart failure. 3. Elevated BNP in a patient with known history of heart failure but also with renal insuffi
[2021-11-14] VITALS (13 sets, daily range): BP systolic 92–148; BP diastolic 63–73; PULSE 60–105; RESP 16–20; TEMP 36.5–37; O2SAT 95–100; BMI 29.2
--- NOTE | 2021-11-14 06:02 | PC.NURSE ---
Assessment remains unchanged from the begining of the shift. Pt reported that he was having issues with urinating. He stated that he was having pain in his penis from the edema. Pt able to urinate but reported difficulty and pressure and pain in his lower abd. Pt asked if he wanted a carrillo or be straight cathed to relieve the pressure and he refused. He stated the dr told me that he did not want me to have something like that. Pt assisted with urinal and was able to produce 250cc o famber colored urine. Barrier cream applied to testicles due to burning from dribbles. Voiced relief. Dressing changed x2 this shift due to saturation. tolerated well.
[2021-11-14 07:17] LABS: Basophils % 0.1 % (0.1-2.0); Eosinophils # 0.1 K/mm3 (0.0-0.4); Eosinophils % 0.6 % (0.1-12.0); Hematocrit 28.4 % (42.0-52.0); Hemoglobin 8.8 g/dL (14.1-18.0); Lymphocytes # 0.7 K/mm3 (0.7-4.5); Lymphocytes % 5.2 % (10-50); Mean Corpuscular HGB Conc 31.1 g/dL (31.8-35.4); Mean Corpuscular Hemoglobin 24.8 pg (27.0-31.2); Mean Corpuscular Volume 79.6 fl (80-94); Mean Platelet Volume 10.3 fl (7.4-10.4); Monocytes % 7.1 % (1.7-9.3); Neutrophils # 11.9 K/mm3 (1.8-7.8); Neutrophils % 86.9 % (37.0-80.0); Platelet Count 242 K/mm3 (142-424); Red Blood Count 3.57 M/mm3 (4.60-6.20); Red Cell Distribution Width 17.9 % (11.5-17.5); White Blood Count 13.7 K/mm3 (4.8-10.8)
[2021-11-14 07:18] LABS: Chloride 103 mmol/L (98-107); Sodium 131 mmol/L (136-145)
[2021-11-14 07:19] LABS: Potassium 4.1 mmoL/L (3.5-5.1)
[2021-11-14 07:21] LABS: Creatinine Clearance Estimated 25 mL/min (50-200); Estimated Glomerular Filt Rate 17 ml/min (>60); GFR (African American) 20 ML/MIN (>60)
[2021-11-14 07:22] LABS: Anion Gap 14.1 mEq/L (5-15); Calcium 6.6 mg/dl (8.4-10.2); Carbon Dioxide 18 mmol/L (22.0-30.0); Glucose 122 mg/dl (74-100); MANUAL DIFFERENTIAL MANUAL DIFFERENTIAL (MANUAL DIFF)
[2021-11-14 07:32] LABS: Blood Urea Nitrogen 84 mg/dl (9-20)
--- NOTE | 2021-11-14 07:57 | PC.NURSE ---
Paged Dr. 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
[2021-11-14 08:11] LABS: Anisocytosis 1+; Hypochromasia 1+; Lymphocytes % 10 % (10-50); Microcytosis 1+; Monocytes % 3 % (2-9); Neutrophils % 87 % (42-76); Platelet Estimate Normal; Total Cells Counted 100
--- NOTE | 2021-11-14 08:14 | PC.NURSE ---
Spoke with Dr. Tom he is aware of labs
--- NOTE | 2021-11-14 09:41 | HMH.GSPN ---
Subjective Patient reports: no new complaints Narrative: Per nursing, dressing changes yesterday were completed without difficulty. No changes consistent with spreading infection . Progress Note: A&P (1) Perianal abscess Status: Acute Assessment and plan: Overall, doing fairly well status post incision and drainage. Continue dressing changes and antibiotics (2) Edema of scrotum Status: Acute (3) Chest wall pain, chronic Status: Acute (4) Deep venous thrombosis of upper extremity Status: Acute (5) Dependence on supplemental oxygen Status: Acute (6) Dyspnea Status: Acute (7) Heart failure, unspecified Status: Acute (8) History of COVID-19 Status: Acute (9) MRSA infection Status: Acute (10) CHF (congestive heart failure) Status: Chronic (11) Coronary artery disease Status: Chronic (12) HTN (hypertension) Status: Chronic (13) History of cardiac pacemaker in situ Status: Chronic (14) NYHA class 2 heart failure with reduced ejection fraction Status: Chronic (15) SOB (shortness of breath) Status: Chronic (16) Renal abscess Status: Acute (17) Renal failure Status: Chronic Exam Vital signs and Labs for Last 24 Hours: Temp Pulse Resp BP Pulse Ox 98.6 F 67 18 148/72 H 99 11/14/21 08:00 11/14/21 08:00 11/14/21 08:00 11/14/21 08:00 11/14/21 08:00 Laboratory Results - last 24 hr 11/14/21 06:58: WBC 13.7 H, RBC 3.57 L, Hgb 8.8 L, Hct 28.4 L, MCV 79.6 L, MCH 24.8 L, MCHC 31.1 L, RDW 17.9 H, Plt Count 242, MPV 10.3, Neut % (Auto) 86.9 H, Lymph % (Auto) 5.2 L, [place] % (Auto) 7.1, Eos % (Auto) 0.6, Baso % (Auto) 0.1, Neut # (Auto) 11.9 H, Lymph # (Auto) 0.7, [place] # (Auto) 1.0, Eos # (Auto) 0.1, Baso # (Auto) 0.0, Total Counted 100, Neutrophils % (Manual) 87 H, Lymphocytes % (Manual) 10, Monocytes % (Manual) 3, Platelet Estimate Normal, Hypochromasia 1+, Anisocytosis 1+, Microcytosis 1+ 11/14/21 06:58: Sodium 131 L, Potassium 4.1, Chloride 103, Carbon Dioxide 18 L, Anion Gap 14.1, BUN 84 H, Creatinine 3.60 H, Estimated Creat Clear 25, Estimated GFR 17 L*, Est GFR ( Amer) 20 L, Glucose 122 H, Calcium 6.6 L I & O for Last 24 hours: Intake & Output 11/11/21 11/12/21 11/13/21 11/14/21 11:59 11:59 11:59 11:59 Intake Total 1540 / 1540 1200 / 1200 1200 / 1200 1425 / 1425 Output Total 470 / 470 700 / 700 1600 / 1600 Balance 1070 / 1070 500 / 500 -400 / -400 1425 / 1425 Weight 194 lb 8.927 oz 205 lb 6.4 oz 210 lb 14.4 oz 208 lb 9 oz Microbiology Reports for the Last 24 Hours: Microbiology 11/11/21 07:55 Buttock - Abscess Gram Stain - Final 11/11/21 07:55 Buttock - Abscess Surgical Biopsy Culture - Preliminary Gram Positive Cocci Gram Negative Rods Gram Negative Rods#2 11/10/21 16:30 Buttock - Abscess Gram Stain - Final 11/10/21 16:30 Buttock - Abscess Wound Culture - Final Klebsiella pneumoniae Staphylococcus aureus 11/11/21 07:55 Buttock - Abscess Gram Stain - Final 11/11/21 07:55 Buttock - Abscess Wound Culture - Final Staphylococcus aureus - Constitutional no acute distress - *Routine Respiratory Exam Absent: respiratory distress - *Routine Skin Exam Comments: Perianal/perineal dressing in place. No changes consistent with spreading cellulitis. No changes consistent with necrotizing soft tissue infection.
--- NOTE | 2021-11-14 10:26 | HMH.ACPN2 ---
Internal Medicine - PN: Subj *Date: 11/14/21 *Time: 10:34 Interval history: Patient without significant overnight events. White count today 13.7 hemoglobin 8.8 Creatinine has risen to 3.6. Attempts were made to diurese the patient. He has a next systolic and diastolic heart failure. He is complaining of dyspnea with exertion. Ischemic chest pain. Patient is also followed by urology and general surgery. Wounds are as described. PICC line in place Exam Vital signs and Labs for Last 24 Hours: Temp Pulse Resp BP Pulse Ox 98.6 F 67 18 148/72 H 99 11/14/21 08:00 11/14/21 08:00 11/14/21 08:00 11/14/21 08:00 11/14/21 08:00 Laboratory Results - last 24 hr 11/14/21 06:58: WBC 13.7 H, RBC 3.57 L, Hgb 8.8 L, Hct 28.4 L, MCV 79.6 L, MCH 24.8 L, MCHC 31.1 L, RDW 17.9 H, Plt Count 242, MPV 10.3, Neut % (Auto) 86.9 H, Lymph % (Auto) 5.2 L, [place] % (Auto) 7.1, Eos % (Auto) 0.6, Baso % (Auto) 0.1, Neut # (Auto) 11.9 H, Lymph # (Auto) 0.7, [place] # (Auto) 1.0, Eos # (Auto) 0.1, Baso # (Auto) 0.0, Total Counted 100, Neutrophils % (Manual) 87 H, Lymphocytes % (Manual) 10, Monocytes % (Manual) 3, Platelet Estimate Normal, Hypochromasia 1+, Anisocytosis 1+, Microcytosis 1+ 11/14/21 06:58: Sodium 131 L, Potassium 4.1, Chloride 103, Carbon Dioxide 18 L, Anion Gap 14.1, BUN 84 H, Creatinine 3.60 H, Estimated Creat Clear 25, Estimated GFR 17 L*, Est GFR ( Amer) 20 L, Glucose 122 H, Calcium 6.6 L I & O for Last 24 hours: Intake & Output 11/11/21 11/12/21 11/13/21 11/14/21 23:59 23:59 23:59 23:59 Intake Total 1780 / 1780 1320 / 1320 1200 / 1725 825 / 825 Output Total 300 / 700 950 / 2300 1350 / 1350 Balance 1480 / 1080 370 / -980 -150 / 375 825 / 825 Weight 194 lb 8.927 oz 205 lb 6.4 oz 210 lb 14.4 oz 208 lb 9 oz Microbiology Reports for the Last 24 Hours: Microbiology 11/11/21 07:55 Buttock - Abscess Gram Stain - Final 11/11/21 07:55 Buttock - Abscess Surgical Biopsy Culture - Preliminary Gram Positive Cocci Gram Negative Rods Gram Negative Rods#2 11/10/21 16:30 Buttock - Abscess Gram Stain - Final 11/10/21 16:30 Buttock - Abscess Wound Culture - Final Klebsiella pneumoniae Staphylococcus aureus 11/11/21 07:55 Buttock - Abscess Gram Stain - Final 11/11/21 07:55 Buttock - Abscess Wound Culture - Final Staphylococcus aureus - Constitutional chronically ill appearing, cooperative - *Routine HEENT Exam Head: Present: normocephalic Eye: Present: EOMI, PERRL ENT: Present: mucous membranes moist - *Routine Neck Exam Present: supple. Absent: lymphadenopathy - *Routine Respiratory Exam Present: CTA bilaterally. Absent: accessory muscle use, wheezes - *Routine Cardiovascular Exam Present: RRR - *Routine Abdominal Exam Present: soft, normoactive bowel sounds. Absent: tenderness - *Routine Extremities Exam Present: edema. Absent: calf tenderness - *Routine Skin Exam Present: scars, wounds - *Routine Neurological Exam Present: alert, oriented X3 Assessment and Plan (1) Perianal abscess Status: Acute Category: Medical Code(s): K61.0 - Anal abscess (2) Edema of scrotum Status: Acute Category: Medical Code(s): N50.89 - Other specified disorders of the male genital organs (3) Chest wall pain, chronic Status: Acute Category: Medical Code(s): R07.89 - Other chest pain; G89.29 - Other chronic pain (4) Deep venous thrombosis of upper extremity Status: Acute Qualifiers: Affected thrombotic vein of extremity: unspecified vein of extremity Chronicity: acute Laterality: left Qualified Code(s): I82.622 - Acute embolism and thrombosis of deep veins of left upper extremity Category: Medical Code(s): I82.629 - Acute embolism and thrombosis of deep veins of unspecified upper extrem
[2021-11-15] VITALS (11 sets, daily range): BP systolic 125–174; BP diastolic 61–90; PULSE 60–81; RESP 18–20; TEMP 36.5–37; O2SAT 97–100; BMI 29.5
--- NOTE | 2021-11-15 02:35 | PC.NURSE ---
Addendum entered by Ana Mc RN 11/15/21 02:39: carrillo cath not inserted at this time. Original Note: Pt has not urinated at all thus far during my shift - and is unsure when he last urinated. Bladder scanner currently unavailable. Pt complaining that he needs to pee but cant. Contacted Dr. Tom, order to insert carrillo cath. Went in room with carrillo cath - pt stated he wanted to try again because he does not want a carrillo cath. Pt was able to urinate 150 mls. After urinating the 150mls, pt states he no longer has urge to urinate.
[2021-11-15 05:55] LABS: Lymphocytes # 0.6 K/mm3 (0.7-4.5); Mean Platelet Volume 10.1 fl (7.4-10.4)
[2021-11-15 06:00] LABS: Basophils % 0.1 % (0.1-2.0); Chloride 104 mmol/L (98-107); Eosinophils % 0.3 % (0.1-12.0); Hemoglobin 8.3 g/dL (14.1-18.0); Lymphocytes % 4.6 % (10-50); Mean Corpuscular HGB Conc 30.5 g/dL (31.8-35.4); Mean Corpuscular Hemoglobin 24.3 pg (27.0-31.2); Mean Corpuscular Volume 79.6 fl (80-94); Monocytes # 0.8 K/mm3 (0.1-1.0); Monocytes % 6.4 % (1.7-9.3); Neutrophils # 11.5 K/mm3 (1.8-7.8); Neutrophils % 88.5 % (37.0-80.0); Platelet Count 224 K/mm3 (142-424); Red Cell Distribution Width 17.9 % (11.5-17.5); Sodium 132 mmol/L (136-145)
[2021-11-15 06:01] LABS: MANUAL DIFFERENTIAL MANUAL DIFFERENTIAL (MANUAL DIFF)
[2021-11-15 06:03] LABS: Carbon Dioxide 18 mmol/L (22.0-30.0); Creatinine Clearance Estimated 29 mL/min (50-200); Estimated Glomerular Filt Rate 19 ml/min (>60); GFR (African American) 23 ML/MIN (>60)
[2021-11-15 06:04] LABS: Calcium 6.4 mg/dl (8.4-10.2); Glucose 99 mg/dl (74-100)
[2021-11-15 06:06] LABS: Blood Urea Nitrogen 82 mg/dl (9-20)
[2021-11-15 06:09] LABS: Anisocytosis 2+; Hypochromasia 2+; Lymphocytes % 13 % (10-50); Microcytosis 3+; Neutrophils % 85 % (42-76); Platelet Estimate Normal; Total Cells Counted 100
[2021-11-15 06:37] LABS: Vancomycin,Trough 14.6 ug/mL (5.0-10.0)
--- NOTE | 2021-11-15 09:26 | PC.NURSE ---
Spoke with palma in lab stated culture + for MRSA
--- NOTE | 2021-11-15 09:46 | HMH.GSPN ---
Subjective Narrative: Overall, feels a little better . He does describe significant left knee pain this morning. He did have some difficulty voiding yesterday but states that it finally started a little Progress Note: A&P (1) Perianal abscess Status: Acute Assessment and plan: Overall, doing fairly well status post incision and drainage. Continue antibiotics and dressing changes (2) Edema of scrotum Status: Acute Assessment and plan: Management as per the urology service (3) Chest wall pain, chronic Status: Acute (4) Deep venous thrombosis of upper extremity Status: Acute (5) Dependence on supplemental oxygen Status: Acute (6) Dyspnea Status: Acute (7) Heart failure, unspecified Status: Acute (8) History of COVID-19 Status: Acute (9) MRSA infection Status: Acute (10) CHF (congestive heart failure) Status: Chronic (11) Coronary artery disease Status: Chronic (12) HTN (hypertension) Status: Chronic (13) History of cardiac pacemaker in situ Status: Chronic (14) NYHA class 2 heart failure with reduced ejection fraction Status: Chronic (15) SOB (shortness of breath) Status: Chronic (16) Renal abscess Status: Acute (17) Renal failure Status: Chronic Exam Vital signs and Labs for Last 24 Hours: Temp Pulse Resp BP Pulse Ox 97.9 F 69 20 174/78 H 99 11/15/21 07:42 11/15/21 07:54 11/15/21 07:42 11/15/21 07:42 11/15/21 07:54 Laboratory Results - last 24 hr 11/15/21 05:40: Vancomycin Trough 14.6 H 11/15/21 05:40: WBC 13.0 H, RBC 3.40 L, Hgb 8.3 L, Hct 27.0 L, MCV 79.6 L, MCH 24.3 L, MCHC 30.5 L, RDW 17.9 H, Plt Count 224, MPV 10.1, Neut % (Auto) 88.5 H, Lymph % (Auto) 4.6 L, [place] % (Auto) 6.4, Eos % (Auto) 0.3, Baso % (Auto) 0.1, Neut # (Auto) 11.5 H, Lymph # (Auto) 0.6 L, [place] # (Auto) 0.8, Eos # (Auto) 0.0, Baso # (Auto) 0.0, Total Counted 100, Neutrophils % (Manual) 85 H, Band Neutrophils % 2.0, Lymphocytes % (Manual) 13, Platelet Estimate Normal, Hypochromasia 2+, Anisocytosis 2+, Microcytosis 3+ 11/15/21 05:40: Sodium 132 L, Potassium 4.0, Chloride 104, Carbon Dioxide 18 L, Anion Gap 14.0, BUN 82 H, Creatinine 3.20 H, Estimated Creat Clear 29, Estimated GFR 19 L*, Est GFR ( Amer) 23 L, Glucose 99, Calcium 6.4 L I & O for Last 24 hours: Intake & Output 11/12/21 11/13/21 11/14/21 11/15/21 11:59 11:59 11:59 11:59 Intake Total 1200 / 1200 1200 / 1200 1425 / 1425 2695 / 2695 Output Total 700 / 700 1600 / 1600 350 / 350 Balance 500 / 500 -400 / -400 1425 / 1425 2345 / 2345 Weight 205 lb 6.4 oz 210 lb 14.4 oz 208 lb 9 oz 211 lb 6.4 oz Microbiology Reports for the Last 24 Hours: Microbiology 11/11/21 07:55 Buttock - Abscess Gram Stain - Final 11/11/21 07:55 Buttock - Abscess Surgical Biopsy Culture - Final Staphylococcus aureus Escherichia coli Klebsiella pneumoniae 11/10/21 16:30 Buttock - Abscess Gram Stain - Final 11/10/21 16:30 Buttock - Abscess Wound Culture - Final Klebsiella pneumoniae Staphylococcus aureus - Constitutional no acute distress - *Routine Respiratory Exam Absent: respiratory distress - *Routine Cardiovascular Exam Absent: tachycardia - *Routine Exam Scrotal: Present: swelling (Slightly improved this morning) - *Routine Skin Exam Comments: Perianal/perineal wound margin without spreading cellulitis.
--- NOTE | 2021-11-15 09:49 | PC.NURSE ---
Made ADI aware
--- NOTE | 2021-11-15 09:54 | PC.NURSE ---
Paged paper control clerk for neus
--- NOTE | 2021-11-15 10:24 | HMH.PHACONS ---
- Pharmacy Consult Date: 11/15/21 Time: 10:24 Referring provider: DR. DAMIAN Reason for Consult:: VANCOMYCIN TROUGH LEVEL Allergies and ADEs:: Allergies Allergy/AdvReac Type Severity Reaction Status Date / Time No Known Allergies Allergy Verified 11/10/21 14:28 Home Medications:: Home Medications Medication Instructions Recorded Confirmed Type Isosorbide Mononitrate [Imdur 60mg 60 mg PO DAILY 02/23/21 11/10/21 History ER tablet] latanoprost 0.005 % eye drops 1 drp OP DAILY ml 03/24/21 11/11/21 History montelukast 10 mg tablet 10 mg PO DAILY tab 03/24/21 11/10/21 History amiodarone 200 mg tablet 200 mg PO DAILY #90 tab 07/13/21 11/10/21 Rx Colchicine 0.6 mg PO DAILY 11/10/21 11/10/21 History Nitroglycerin 0.5 mg PO Q5MINP PRN 11/10/21 11/11/21 History Rivaroxaban [Xarelto] 20 mg PO QPMWITHMEAL 11/10/21 11/11/21 History Albuterol Sulfate [Proventil Hfa] 2 puff IH Q6HP PRN 11/11/21 11/11/21 History Atorvastatin Calcium [Lipitor 40mg 40 mg PO HS 11/11/21 11/11/21 History Tab] Dorzolamide HCl/Pf [Dorzolamide 2% 1 drp OP TID 11/11/21 11/11/21 History Eye Drop] Fluticasone/Umeclidin/Vilanter 1 puff IH DAILY 11/11/21 11/11/21 History [Trelegy Ellipta 200-62.5-25] Hydrocodone/Acetaminophen 1 tab PO Q8HP PRN 11/11/21 11/11/21 History [Hydrocodone-Acetamin 7.5-325] Ipratropium/Albuterol Sulfate 3 ml IH QIDP PRN 11/11/21 11/11/21 History [Duoneb 3mL neb] LORazepam [Lorazepam] 0.5 mg PO BIDP PRN 11/11/21 11/11/21 History Pantoprazole Sodium 40 mg PO DAILY 11/11/21 11/11/21 History Torsemide [Demadex 20mg tablet] 40 mg PO BID 11/11/21 11/11/21 History metOLazone [metOLazone 2.5mg 2.5 mg PO DAILY 11/11/21 11/11/21 History Tablet] Height: 1.8 m Weight: 95.889 kg Laboratory Results:: Laboratory Results - last 24 hr 11/15/21 05:40: Vancomycin Trough 14.6 H 11/15/21 05:40: WBC 13.0 H, RBC 3.40 L, Hgb 8.3 L, Hct 27.0 L, MCV 79.6 L, MCH 24.3 L, MCHC 30.5 L, RDW 17.9 H, Plt Count 224, MPV 10.1, Neut % (Auto) 88.5 H, Lymph % (Auto) 4.6 L, [place] % (Auto) 6.4, Eos % (Auto) 0.3, Baso % (Auto) 0.1, Neut # (Auto) 11.5 H, Lymph # (Auto) 0.6 L, [place] # (Auto) 0.8, Eos # (Auto) 0.0, Baso # (Auto) 0.0, Total Counted 100, Neutrophils % (Manual) 85 H, Band Neutrophils % 2.0, Lymphocytes % (Manual) 13, Platelet Estimate Normal, Hypochromasia 2+, Anisocytosis 2+, Microcytosis 3+ 11/15/21 05:40: Sodium 132 L, Potassium 4.0, Chloride 104, Carbon Dioxide 18 L, Anion Gap 14.0, BUN 82 H, Creatinine 3.20 H, Estimated Creat Clear 29, Estimated GFR 19 L*, Est GFR ( Amer) 23 L, Glucose 99, Calcium 6.4 L Medical History: Reports:: Congestive Heart Failure, Chronic Obstructive Pulmonary Disease (COPD), Coronary Artery Disease, Hyperlipidemia, Hypertension, Internal Pacemaker, MRSA Denies:: Cancer, Diabetes Mellitus Type 1, Diabetes Mellitus Type 2, Seizures Assessment and Plan (1) Perianal abscess Status: Acute Category: Medical Code(s): K61.0 - Anal abscess (2) Edema of scrotum Status: Acute Category: Medical Code(s): N50.89 - Other specified disorders of the male genital organs (3) Chest wall pain, chronic Status: Acute Category: Medical Code(s): R07.89 - Other chest pain; G89.29 - Other chronic pain (4) Deep venous thrombosis of upper extremity Status: Acute Qualifiers: Affected thrombotic vein of extremity: unspecified vein of extremity Chronicity: acute Laterality: left Qualified Code(s): I82.622 - Acute embolism and thrombosis of deep veins of left upper extremity Category: Medical Code(s): I82.629 - Acute embolism and thrombosis of deep veins of unspecified upper extremity (5) Dependence on supplemental oxygen Status: Acute Category: Medical Code(s): Z99.81 - Dependence on supplemental oxygen (6) Dyspnea Status: Acute Qualifiers: Dyspnea type: shortness of breath Qualified Code(s): R06.02 - Shortness of breath; R06.00 - Dyspnea, unspecified; R06.01 -
--- NOTE | 2021-11-15 12:22 | HMH.ACPN2 ---
Internal Medicine - PN: Subj *Date: 11/15/21 *Time: 12:30 Interval history: Patient is overall making very slow progress. General surgery is following his wound, we are continuing dressing changes with IV antibiotics. Patient complained of acute onset left knee pain in the absence of trauma. Sitter diagnosis of gout. Patient's renal function remains managed. Creatinine 3.20 today with a potassium of 4. This is acute on chronic failure. Wound cultures are reviewed. We will maintain the vancomycin change Zosyn to Rocephin. Patient is unable to stand or transfer without significant assistance. He becomes markedly short of breath with minimal exertion. Exam Vital signs and Labs for Last 24 Hours: Temp Pulse Resp BP Pulse Ox 97.7 F 62 18 125/61 99 11/15/21 11:15 11/15/21 11:15 11/15/21 11:15 11/15/21 11:15 11/15/21 11:15 Laboratory Results - last 24 hr 11/15/21 05:40: Vancomycin Trough 14.6 H 11/15/21 05:40: WBC 13.0 H, RBC 3.40 L, Hgb 8.3 L, Hct 27.0 L, MCV 79.6 L, MCH 24.3 L, MCHC 30.5 L, RDW 17.9 H, Plt Count 224, MPV 10.1, Neut % (Auto) 88.5 H, Lymph % (Auto) 4.6 L, [place] % (Auto) 6.4, Eos % (Auto) 0.3, Baso % (Auto) 0.1, Neut # (Auto) 11.5 H, Lymph # (Auto) 0.6 L, [place] # (Auto) 0.8, Eos # (Auto) 0.0, Baso # (Auto) 0.0, Total Counted 100, Neutrophils % (Manual) 85 H, Band Neutrophils % 2.0, Lymphocytes % (Manual) 13, Platelet Estimate Normal, Hypochromasia 2+, Anisocytosis 2+, Microcytosis 3+ 11/15/21 05:40: Sodium 132 L, Potassium 4.0, Chloride 104, Carbon Dioxide 18 L, Anion Gap 14.0, BUN 82 H, Creatinine 3.20 H, Estimated Creat Clear 29, Estimated GFR 19 L*, Est GFR ( Amer) 23 L, Glucose 99, Calcium 6.4 L I & O for Last 24 hours: Intake & Output 11/12/21 11/13/21 11/14/21 11/15/21 23:59 23:59 23:59 23:59 Intake Total 1320 / 1320 1200 / 1725 2160 / 2160 1360 / 1360 Output Total 950 / 2300 1350 / 1350 350 / 350 Balance 370 / -980 -150 / 375 2160 / 2160 1010 / 1010 Weight 205 lb 6.4 oz 210 lb 14.4 oz 208 lb 9 oz 211 lb 6.4 oz Microbiology Reports for the Last 24 Hours: Microbiology 11/11/21 07:55 Buttock - Abscess Gram Stain - Final 11/11/21 07:55 Buttock - Abscess Surgical Biopsy Culture - Final Staphylococcus aureus Escherichia coli Klebsiella pneumoniae - Constitutional no acute distress, chronically ill appearing, cooperative - *Routine HEENT Exam Head: Present: normocephalic Eye: Present: EOMI, PERRL ENT: Present: mucous membranes moist - *Routine Neck Exam Present: supple. Absent: lymphadenopathy - *Routine Respiratory Exam Absent: accessory muscle use, rhonchi, wheezes, crackles - *Routine Cardiovascular Exam Present: RRR - *Routine Abdominal Exam Present: soft, normoactive bowel sounds. Absent: tenderness - *Routine Extremities Exam Present: joint swelling. Absent: cyanosis, clubbing, edema, calf tenderness, extremity cold to touch - *Routine Skin Exam Present: lesions, wounds. Absent: jaundice - *Routine Neurological Exam Present: alert, oriented X3, vision grossly intact, hearing grossly intact Assessment and Plan (1) Perianal abscess Status: Acute Category: Medical Code(s): K61.0 - Anal abscess (2) Edema of scrotum Status: Acute Category: Medical Code(s): N50.89 - Other specified disorders of the male genital organs (3) Chest wall pain, chronic Status: Acute Category: Medical Code(s): R07.89 - Other chest pain; G89.29 - Other chronic pain (4) Deep venous thrombosis of upper extremity Status: Acute Qualifiers: Affected thrombotic vein of extremity: unspecified vein of extremity Chronicity: acute Laterality: left Qualified Code(s): I82.622 - Acute embolism and thrombosis of deep veins of left upper extremity Category: Medical Code(s): I82.629 - Acute embolism and thrombosis of deep veins of unspecified upper extrem
--- NOTE | 2021-11-15 13:42 | HMH.ACPN ---
Internal Medicine - PN: Subj *Date: 11/15/21 *Time: 13:42 Exam Vital signs and Labs for Last 24 Hours: Temp Pulse Resp BP Pulse Ox 97.7 F 66 18 125/61 100 11/15/21 11:15 11/15/21 13:14 11/15/21 11:15 11/15/21 11:15 11/15/21 13:14 Laboratory Results - last 24 hr 11/15/21 05:40: Vancomycin Trough 14.6 H 11/15/21 05:40: WBC 13.0 H, RBC 3.40 L, Hgb 8.3 L, Hct 27.0 L, MCV 79.6 L, MCH 24.3 L, MCHC 30.5 L, RDW 17.9 H, Plt Count 224, MPV 10.1, Neut % (Auto) 88.5 H, Lymph % (Auto) 4.6 L, [place] % (Auto) 6.4, Eos % (Auto) 0.3, Baso % (Auto) 0.1, Neut # (Auto) 11.5 H, Lymph # (Auto) 0.6 L, [place] # (Auto) 0.8, Eos # (Auto) 0.0, Baso # (Auto) 0.0, Total Counted 100, Neutrophils % (Manual) 85 H, Band Neutrophils % 2.0, Lymphocytes % (Manual) 13, Platelet Estimate Normal, Hypochromasia 2+, Anisocytosis 2+, Microcytosis 3+ 11/15/21 05:40: Sodium 132 L, Potassium 4.0, Chloride 104, Carbon Dioxide 18 L, Anion Gap 14.0, BUN 82 H, Creatinine 3.20 H, Estimated Creat Clear 29, Estimated GFR 19 L*, Est GFR ( Amer) 23 L, Glucose 99, Calcium 6.4 L I & O for Last 24 hours: Intake & Output 11/12/21 11/13/21 11/14/21 11/15/21 23:59 23:59 23:59 23:59 Intake Total 1320 / 1320 1200 / 1725 2160 / 2160 1480 / 1480 Output Total 950 / 2300 1350 / 1350 350 / 350 Balance 370 / -980 -150 / 375 2160 / 2160 1130 / 1130 Weight 93.168 kg 95.663 kg 94.602 kg 95.889 kg Microbiology Reports for the Last 24 Hours: Microbiology 11/11/21 07:55 Buttock - Abscess Gram Stain - Final 11/11/21 07:55 Buttock - Abscess Surgical Biopsy Culture - Final Staphylococcus aureus Escherichia coli Klebsiella pneumoniae Assessment and Plan (1) Perianal abscess Status: Acute Category: Medical Code(s): K61.0 - Anal abscess (2) Edema of scrotum Status: Acute Category: Medical Code(s): N50.89 - Other specified disorders of the male genital organs (3) Chest wall pain, chronic Status: Acute Category: Medical Code(s): R07.89 - Other chest pain; G89.29 - Other chronic pain (4) Deep venous thrombosis of upper extremity Status: Acute Qualifiers: Affected thrombotic vein of extremity: unspecified vein of extremity Chronicity: acute Laterality: left Qualified Code(s): I82.622 - Acute embolism and thrombosis of deep veins of left upper extremity Category: Medical Code(s): I82.629 - Acute embolism and thrombosis of deep veins of unspecified upper extremity (5) Dependence on supplemental oxygen Status: Acute Category: Medical Code(s): Z99.81 - Dependence on supplemental oxygen (6) Dyspnea Status: Acute Qualifiers: Dyspnea type: shortness of breath Qualified Code(s): R06.02 - Shortness of breath; R06.00 - Dyspnea, unspecified; R06.01 - Orthopnea Category: Medical Code(s): R06.00 - Dyspnea, unspecified (7) Heart failure, unspecified Status: Acute Category: Medical Code(s): I50.9 - Heart failure, unspecified (8) History of COVID-19 Status: Acute Category: Medical Code(s): Z86.16 - Personal history of COVID-19 (9) MRSA infection Status: Acute Category: Medical Code(s): A49.02 - Methicillin resistant Staphylococcus aureus infection, unspecified site (10) CHF (congestive heart failure) Status: Chronic Qualifiers: Heart failure type: unspecified Heart failure chronicity: chronic Qualified Code(s): I50.9 - Heart failure, unspecified Category: Medical Code(s): I50.9 - Heart failure, unspecified (11) Coronary artery disease Status: Chronic Qualifiers: Coronary Disease-Associated Artery/Lesion type: [place] artery [place] vs. transplanted heart: [place] heart Associated angina: without angina Qualified Code(s): I25.10 - Atherosclerotic heart disease of [place] coronary artery without angina pectoris Category: Medical Code(s): I25.10 - Atherosclerotic heart dis
[2021-11-16] VITALS (10 sets, daily range): BP systolic 134–175; BP diastolic 68–93; PULSE 60–94; RESP 16–22; TEMP 36.6–36.9; O2SAT 90–100; BMI 30.1
--- NOTE | 2021-11-16 07:50 | PC.NURSE ---
LATE ENTRY - Dressing changed as ordered. Wound appearance - yellow slough. Medicating per MAR for pain. Pt states majority of his pain is in his knees. Pt is voiding per urinal. Scrotum looks a little less edematous than the night before. IV infusing per order via PICC line. Pt is being monitored via tele and continuos pulse ox. Pt is currently on 4 L NC, he does have home O2 and normally wears 3 L NC. No other needs at this time. Call light in reach, bed alarm on for safety.
--- NOTE | 2021-11-16 07:51 | HMH.GSPN ---
Subjective Patient reports: feels better Narrative: The patient states that he is doing a little better . He states that he hopes to go to a rehabilitation facility soon. Per nursing, the patient's dressing changes are going fairly well; however, a significant amount of drainage remains. Progress Note: A&P (1) Perianal abscess Status: Acute Assessment and plan: Overall, doing fairly well status post incision and drainage. Continue antibiotics to cover MRSA and gram-negative infection Increase frequency of dry dressing changes (2) Edema of scrotum Status: Acute (3) Chest wall pain, chronic Status: Acute (4) Deep venous thrombosis of upper extremity Status: Acute (5) Dependence on supplemental oxygen Status: Acute (6) Dyspnea Status: Acute (7) Heart failure, unspecified Status: Acute (8) History of COVID-19 Status: Acute (9) MRSA infection Status: Acute (10) CHF (congestive heart failure) Status: Chronic (11) Coronary artery disease Status: Chronic (12) HTN (hypertension) Status: Chronic (13) History of cardiac pacemaker in situ Status: Chronic (14) NYHA class 2 heart failure with reduced ejection fraction Status: Chronic (15) SOB (shortness of breath) Status: Chronic (16) Renal abscess Status: Acute (17) Renal failure Status: Chronic Exam Vital signs and Labs for Last 24 Hours: Temp Pulse Resp BP Pulse Ox 97.9 F 69 18 140/75 100 11/16/21 04:00 11/16/21 06:15 11/16/21 04:00 11/16/21 04:00 11/16/21 06:15 I & O for Last 24 hours: Intake & Output 11/13/21 11/14/21 11/15/21 11/16/21 11:59 11:59 11:59 11:59 Intake Total 1200 / 1200 1425 / 1425 2695 / 2695 832 / 832 Output Total 1600 / 1600 350 / 350 400 / 400 Balance -400 / -400 1425 / 1425 2345 / 2345 432 / 432 Weight 210 lb 14.4 oz 208 lb 9 oz 211 lb 6.4 oz 215 lb Microbiology Reports for the Last 24 Hours: Microbiology 11/10/21 17:30 Blood Blood Culture - Final NO GROWTH AFTER 5 DAYS 11/10/21 17:30 Blood Blood Culture - Final NO GROWTH AFTER 5 DAYS 11/11/21 07:55 Buttock - Abscess Gram Stain - Final 11/11/21 07:55 Buttock - Abscess Surgical Biopsy Culture - Final Staphylococcus aureus Escherichia coli Klebsiella pneumoniae - Constitutional no acute distress - *Routine Respiratory Exam Absent: respiratory distress - *Routine Cardiovascular Exam Absent: tachycardia - *Routine Skin Exam Comments: Dressing intact. No spreading cellulitis.
--- NOTE | 2021-11-16 08:57 | HMH.PNCARD ---
Subjective Date: 11/16/21 Time: 08:58 Principal diagnosis: abscess Interval history: 71 yo WM in bed in NAD. Breathing is at baseline per patient. No chest pain. Plans are for short term rehab prior to going home, per patient. Exam Vital signs and Labs for Last 24 Hours: Temp Pulse Resp BP Pulse Ox 98.3 F 64 16 134/70 99 11/16/21 08:00 11/16/21 08:00 11/16/21 08:00 11/16/21 08:00 11/16/21 08:00 I & O for Last 24 hours: Intake & Output 11/13/21 11/14/21 11/15/21 11/16/21 11:59 11:59 11:59 11:59 Intake Total 1200 / 1200 1425 / 1425 2695 / 2695 209 / 2092 Output Total 1600 / 1600 350 / 350 900 / 900 Balance -400 / -400 1425 / 1425 2345 / 2345 1192 / 1192 Weight 210 lb 14.4 oz 208 lb 9 oz 211 lb 6.4 oz 215 lb Microbiology Reports for the Last 24 Hours: Microbiology 11/10/21 17:30 Blood Blood Culture - Final NO GROWTH AFTER 5 DAYS 11/10/21 17:30 Blood Blood Culture - Final NO GROWTH AFTER 5 DAYS 11/11/21 07:55 Buttock - Abscess Gram Stain - Final 11/11/21 07:55 Buttock - Abscess Surgical Biopsy Culture - Final Staphylococcus aureus Escherichia coli Klebsiella pneumoniae - Constitutional no acute distress - *Routine Respiratory Exam Present: CTA bilaterally - *Routine Cardiovascular Exam Present: RRR - *Routine Neurological Exam Present: alert, oriented X3 Progress Note: A&P (1) Perianal abscess Status: Acute (2) Edema of scrotum Status: Acute (3) Chest wall pain, chronic Status: Acute (4) Deep venous thrombosis of upper extremity Status: Acute (5) Dependence on supplemental oxygen Status: Acute (6) Dyspnea Status: Acute (7) Heart failure, unspecified Status: Acute (8) History of COVID-19 Status: Acute (9) MRSA infection Status: Acute (10) CHF (congestive heart failure) Status: Chronic (11) Coronary artery disease Status: Chronic (12) HTN (hypertension) Status: Chronic (13) History of cardiac pacemaker in situ Status: Chronic (14) NYHA class 2 heart failure with reduced ejection fraction Status: Chronic (15) SOB (shortness of breath) Status: Chronic (16) Renal abscess Status: Acute (17) Renal failure Status: Chronic Assessment and Plan for All Diagnoses:: 1. Perirectal/perianal abscess, status post I&D, continues on Abx. 2. Scrotal swelling, improved. 3. Renal insufficiency, acute on chronic (baseline recently 1.5-1.8 per hospital labs) but currently Cr 3.2 with GFR19. Continue torsemide. 4. Coronary artery disease with prior coronary stenting and last cath by Dr. Chan 2019, clinically he seems to be stable at this time. 5. Permanent pacemaker, interrogated and no alerts noted. Pacing >99% of the time, he is a candidate for upgrade to [employer]-P in future. 6. History of congestive heart failure, mixed systolic and diastolic, echo EF of 40-45%. On metoprolol succinate 25 mg daily. No ALBINO/ARB/entresto due to SILVINO at this time. 7. Microcytic anemia, Hgb 8.3 today. 8. H/o PAF, maintaining NSR on amio and metoprolol. On Xarelto for a/c. OK from Cardiology standpoint for discharge when PCP is ready. Follow up with Dr. Arroyo in [place].
--- NOTE | 2021-11-16 09:24 | HMH.ACPN2 ---
Internal Medicine - PN: Subj *Date: 11/16/21 *Time: 08:10 Interval history: pt states he is feeling better, having left knee pain causing it to be difficult to move about. pt states his knee flares up now and then Exam Vital signs and Labs for Last 24 Hours: Temp Pulse Resp BP Pulse Ox 98.3 F 64 16 134/70 99 11/16/21 08:00 11/16/21 08:00 11/16/21 08:00 11/16/21 08:00 11/16/21 08:00 I & O for Last 24 hours: Intake & Output 11/13/21 11/14/21 11/15/21 11/16/21 11:59 11:59 11:59 11:59 Intake Total 1200 / 1200 1425 / 1425 2695 / 2695 2091 / 2091 Output Total 1600 / 1600 350 / 350 900 / 900 Balance -400 / -400 1425 / 1425 2345 / 2345 1192 / 1192 Weight 210 lb 14.4 oz 208 lb 9 oz 211 lb 6.4 oz 215 lb Microbiology Reports for the Last 24 Hours: Microbiology 11/10/21 17:30 Blood Blood Culture - Final NO GROWTH AFTER 5 DAYS 11/10/21 17:30 Blood Blood Culture - Final NO GROWTH AFTER 5 DAYS 11/11/21 07:55 Buttock - Abscess Gram Stain - Final 11/11/21 07:55 Buttock - Abscess Surgical Biopsy Culture - Final Staphylococcus aureus Escherichia coli Klebsiella pneumoniae - Constitutional no acute distress - *Routine HEENT Exam Head: Present: normocephalic Eye: Present: PERRL ENT: Present: mucous membranes moist - *Routine Neck Exam Present: supple. Absent: lymphadenopathy - *Routine Respiratory Exam Present: CTA bilaterally - *Routine Cardiovascular Exam Present: RRR - *Routine Abdominal Exam Present: soft, normoactive bowel sounds. Absent: tenderness - *Routine Exam Comments: packing in place, redness improved, skin areas opened, foul odor. mild edema to penis, scrotum edema and open sores scattered - *Routine Extremities Exam Absent: cyanosis, clubbing, edema Comments: left knee tender to palpate, no redness or warmth - *Routine Skin Exam Present: warm, wounds. Absent: rash - *Routine Neurological Exam Present: alert, oriented X3 Assessment and Plan (1) Perianal abscess Status: Acute Category: Medical Code(s): K61.0 - Anal abscess culture + for staphyocycoccus aureus,ecoli,klebsiella pneumonia. picc line in place. (2) Edema of scrotum Status: Acute Category: Medical Code(s): N50.89 - Other specified disorders of the male genital organs (3) Chest wall pain, chronic Status: Acute Category: Medical Code(s): R07.89 - Other chest pain; G89.29 - Other chronic pain (4) Deep venous thrombosis of upper extremity Status: Acute Qualifiers: Affected thrombotic vein of extremity: unspecified vein of extremity Chronicity: acute Laterality: left Qualified Code(s): I82.622 - Acute embolism and thrombosis of deep veins of left upper extremity Category: Medical Code(s): I82.629 - Acute embolism and thrombosis of deep veins of unspecified upper extremity (5) Dependence on supplemental oxygen Status: Acute Category: Medical Code(s): Z99.81 - Dependence on supplemental oxygen (6) Dyspnea Status: Acute Qualifiers: Dyspnea type: shortness of breath Qualified Code(s): R06.02 - Shortness of breath; R06.00 - Dyspnea, unspecified; R06.01 - Orthopnea Category: Medical Code(s): R06.00 - Dyspnea, unspecified (7) Heart failure, unspecified Status: Acute Category: Medical Code(s): I50.9 - Heart failure, unspecified (8) History of COVID-19 Status: Acute Category: Medical Code(s): Z86.16 - Personal history of COVID-19 (9) MRSA infection Status: Acute Category: Medical Code(s): A49.02 - Methicillin resistant Staphylococcus aureus infection, unspecified site (10) CHF (congestive heart failure) Status: Chronic Qualifiers: Heart failure type: unspecified Heart failure chronicity: chronic Qualified Code(s): I50.9 - Heart failure, unspecifie
[2021-11-16 23:02] LABS: Potassium 3.9 mmoL/L (3.5-5.1)
[2021-11-16 23:05] LABS: Blood Urea Nitrogen 78 mg/dl (9-20); Calcium 6.6 mg/dl (8.4-10.2); Carbon Dioxide 15 mmol/L (22.0-30.0); Creatinine Clearance Estimated 35 mL/min (50-200); Estimated Glomerular Filt Rate 23 ml/min (>60); GFR (African American) 28 ML/MIN (>60); Glucose 108 mg/dl (74-100)
[2021-11-16 23:26] LABS: Anion Gap 17.9 mEq/L (5-15); Chloride 104 mmol/L (98-107); Sodium 133 mmol/L (136-145)
[2021-11-16 23:37] LABS: Vancomycin,Trough 42.8 ug/mL (5.0-10.0)
[2021-11-17] VITALS (12 sets, daily range): BP systolic 133–172; BP diastolic 62–74; PULSE 60–86; RESP 16–20; TEMP 36.6–36.9; O2SAT 94–99; BMI 30.1
--- NOTE | 2021-11-17 06:39 | PC.NURSE ---
No acute changes. Pt tolerating 3 L nc well with sats >90%. Pt c/o pain in scrotum area 1x at beginning of shift. Pt then c/o pain in bilateral knees 2x /o shift rating pain 9/10. Pt was readjusted in bed, given warm blankets, and administered PRN pain medication per OCT with favorable results. Scrotum area was cleaned. Deep ulceration noted bottom, irrigated and packed. DSG with barrier cream applied to perineal area. Pt tolerated well. Call light within reach.
[2021-11-17 06:44] LABS: Basophils % 0.2 % (0.1-2.0); Eosinophils % 0.2 % (0.1-12.0); Hematocrit 26.2 % (42.0-52.0); Hemoglobin 8.1 g/dL (14.1-18.0); Lymphocytes # 0.5 K/mm3 (0.7-4.5); Lymphocytes % 3.5 % (10-50); Mean Corpuscular Hemoglobin 24.9 pg (27.0-31.2); Mean Corpuscular Volume 80.3 fl (80-94); Monocytes # 0.7 K/mm3 (0.1-1.0); Monocytes % 4.7 % (1.7-9.3); Neutrophils # 13.4 K/mm3 (1.8-7.8); Neutrophils % 91.3 % (37.0-80.0); Platelet Count 288 K/mm3 (142-424); Red Blood Count 3.26 M/mm3 (4.60-6.20); White Blood Count 14.7 K/mm3 (4.8-10.8)
[2021-11-17 06:46] LABS: Chloride 106 mmol/L (98-107); Potassium 3.7 mmoL/L (3.5-5.1); Sodium 132 mmol/L (136-145)
[2021-11-17 06:47] LABS: MANUAL DIFFERENTIAL MANUAL DIFFERENTIAL (MANUAL DIFF)
[2021-11-17 06:49] LABS: Anion Gap 13.7 mEq/L (5-15); Blood Urea Nitrogen 78 mg/dl (9-20); Carbon Dioxide 16 mmol/L (22.0-30.0); Creatinine Clearance Estimated 35 mL/min (50-200); Estimated Glomerular Filt Rate 23 ml/min (>60); GFR (African American) 28 ML/MIN (>60)
[2021-11-17 06:50] LABS: Calcium 6.5 mg/dl (8.4-10.2); Glucose 136 mg/dl (74-100)
[2021-11-17 07:42] LABS: Hypochromasia 1+; Lymphocytes % 4 % (10-50); Monocytes % 5 % (2-9); Neutrophils % 91 % (42-76); Platelet Estimate Normal; Total Cells Counted 100
[2021-11-17 07:44] LABS: Anisocytosis 1+; Microcytosis 1+
--- NOTE | 2021-11-17 08:57 | CA_ITS ---
FINAL REPORT TECHNIQUE: Extremity venous duplex was performed with augmentation and compression of the left upper extremity. CLINICAL HISTORY: LUE Edema, Previous DVT > 1 year ago with COVID FINDINGS: Proper flow is seen throughout the deep venous system of the left upper extremity. There is no evidence of deep venous thrombosis. IMPRESSION: No deep venous thrombosis. Reviewed, Interpreted and Dictated by Dung Almonte MD Transcribed by Jose Johnson Authenticated by Dung Almonte MD on 11/17/2021 11:16:04 AM [facility]
--- NOTE | 2021-11-17 09:00 | HMH.ACPN2 ---
Internal Medicine - PN: Subj *Date: 11/17/21 *Time: 13:05 Interval history: 31-year-old male patient sitting up in bed resting quietly, he denies any chest pain or respiratory distress during the night. He does report pain and edema to left knee, during physical examination left upper extremity noted to be edematous also good pulses and warm. Exam Vital signs and Labs for Last 24 Hours: Temp Pulse Resp BP Pulse Ox 98 F 69 20 142/69 H 96 11/17/21 08:00 11/17/21 08:00 11/17/21 08:00 11/17/21 08:00 11/17/21 08:00 Laboratory Results - last 24 hr 11/16/21 22:47: Sodium 133 L, Potassium 3.9, Chloride 104, Carbon Dioxide 15 L, Anion Gap 17.9 H, BUN 78 H, Creatinine 2.70 H, Estimated Creat Clear 35, Estimated GFR 23 L, Est GFR ( Amer) 28 L D, Glucose 108 H, Calcium 6.6 L 11/16/21 22:47: Vancomycin Trough 42.8 H 11/17/21 02:35: Vancomycin Peak 28.0 11/17/21 06:10: WBC 14.7 H, RBC 3.26 L, Hgb 8.1 L, Hct 26.2 L, MCV 80.3, MCH 24.9 L, MCHC 31.0 L, RDW 18.0 H, Plt Count 288 D, MPV 10.0, Neut % (Auto) 91.3 H, Lymph % (Auto) 3.5 L, [place] % (Auto) 4.7, Eos % (Auto) 0.2, Baso % (Auto) 0.2, Neut # (Auto) 13.4 H, Lymph # (Auto) 0.5 L, [place] # (Auto) 0.7, Eos # (Auto) 0.0, Baso # (Auto) 0.0, Total Counted 100, Neutrophils % (Manual) 91 H, Lymphocytes % (Manual) 4 L, Monocytes % (Manual) 5, Platelet Estimate Normal, Hypochromasia 1+, Anisocytosis 1+, Microcytosis 1+ 11/17/21 06:10: Sodium 132 L, Potassium 3.7, Chloride 106, Carbon Dioxide 16 L, Anion Gap 13.7, BUN 78 H, Creatinine 2.70 H, Estimated Creat Clear 35, Estimated GFR 23 L, Est GFR ( Amer) 28 L, Glucose 136 H D, Calcium 6.5 L I & O for Last 24 hours: Intake & Output 11/14/21 11/15/21 11/16/21 11/17/21 23:59 23:59 23:59 23:59 Intake Total 2160 / 2160 1952 / 2192 4246 / 4246 360 / 360 Output Total 550 / 750 1400 / 1700 300 / 300 Balance 2160 / 2160 1402 / 1442 2846 / 2546 60 / 60 Weight 208 lb 9 oz 211 lb 6.4 oz 215 lb 214 lb 15.987 oz Microbiology Reports for the Last 24 Hours: Microbiology 11/11/21 07:55 Buttock - Abscess - Final 11/11/21 07:55 Buttock - Abscess - Final - Constitutional no acute distress, chronically ill appearing - *Routine HEENT Exam Head: Present: normocephalic Eye: Present: EOMI ENT: Present: mucous membranes moist - *Routine Neck Exam Present: trachea midline. Absent: tracheal deviation - *Routine Respiratory Exam Present: CTA bilaterally. Absent: accessory muscle use - *Routine Cardiovascular Exam Present: RRR - *Routine Abdominal Exam Present: soft, normoactive bowel sounds - *Routine Extremities Exam Present: edema, pulses intact. Absent: cyanosis Comments: LUE edematous L Knee edematous - *Routine Skin Exam Present: warm, wounds. Absent: intact Comments: Drsg to perineal area w/ drng - *Routine Neurological Exam Present: alert, oriented X3. Absent: motor deficit - Routine Psychiatric Exam Present: normal affect. Absent: auditory hallucinations Assessment and Plan (1) Perianal abscess Status: Acute Category: Medical Code(s): K61.0 - Anal abscess (2) Edema of scrotum Status: Acute Category: Medical Code(s): N50.89 - Other specified disorders of the male genital organs (3) Chest wall pain, chronic Status: Acute Category: Medical Code(s): R07.89 - Other chest pain; G89.29 - Other chronic pain (4) Deep venous thrombosis of upper extremity Status: Acute Qualifiers: Affected thrombotic vein of extremity: unspecified vein of extremity Chronicity: acute Laterality: left Qualified Code(s): I82.622 - Acute embolism and thrombosis of deep veins of left upper extremity Category: Medical Code(s): I82.629 - Acute embolism and thrombosis of deep veins of unspecified upper extremity (5) Dependence on supplemental oxygen Status: Acute Category: Medical Code(s): Z99.81 - Dependence on supplemental oxygen (6) Dyspnea Status: Acute
--- NOTE | 2021-11-17 09:55 | HMH.GSPN ---
Subjective Narrative: States that he feels about the same . He is having no complaints with regard to dressing changes. He continues to describe significant left-sided knee pain. Progress Note: A&P (1) Perianal abscess Status: Acute Assessment and plan: Overall, fairly stable status post incision or drainage. No changes consistent with necrotizing soft tissue infection. Continue dressing changes and antibiotics for now (2) Edema of scrotum Status: Acute (3) Chest wall pain, chronic Status: Acute (4) Deep venous thrombosis of upper extremity Status: Acute (5) Dependence on supplemental oxygen Status: Acute (6) Dyspnea Status: Acute (7) Heart failure, unspecified Status: Acute (8) History of COVID-19 Status: Acute (9) MRSA infection Status: Acute (10) CHF (congestive heart failure) Status: Chronic (11) Coronary artery disease Status: Chronic (12) HTN (hypertension) Status: Chronic (13) History of cardiac pacemaker in situ Status: Chronic (14) NYHA class 2 heart failure with reduced ejection fraction Status: Chronic (15) SOB (shortness of breath) Status: Chronic (16) Renal abscess Status: Acute (17) Renal failure Status: Chronic (18) Acute on chronic renal insufficiency Status: Acute Exam Vital signs and Labs for Last 24 Hours: Temp Pulse Resp BP Pulse Ox 98 F 69 20 142/69 H 96 11/17/21 08:00 11/17/21 08:00 11/17/21 08:00 11/17/21 08:00 11/17/21 08:00 Laboratory Results - last 24 hr 11/16/21 22:47: Sodium 133 L, Potassium 3.9, Chloride 104, Carbon Dioxide 15 L, Anion Gap 17.9 H, BUN 78 H, Creatinine 2.70 H, Estimated Creat Clear 35, Estimated GFR 23 L, Est GFR ( Amer) 28 L D, Glucose 108 H, Calcium 6.6 L 11/16/21 22:47: Vancomycin Trough 42.8 H 11/17/21 02:35: Vancomycin Peak 28.0 11/17/21 06:10: WBC 14.7 H, RBC 3.26 L, Hgb 8.1 L, Hct 26.2 L, MCV 80.3, MCH 24.9 L, MCHC 31.0 L, RDW 18.0 H, Plt Count 288 D, MPV 10.0, Neut % (Auto) 91.3 H, Lymph % (Auto) 3.5 L, [place] % (Auto) 4.7, Eos % (Auto) 0.2, Baso % (Auto) 0.2, Neut # (Auto) 13.4 H, Lymph # (Auto) 0.5 L, [place] # (Auto) 0.7, Eos # (Auto) 0.0, Baso # (Auto) 0.0, Total Counted 100, Neutrophils % (Manual) 91 H, Lymphocytes % (Manual) 4 L, Monocytes % (Manual) 5, Platelet Estimate Normal, Hypochromasia 1+, Anisocytosis 1+, Microcytosis 1+ 11/17/21 06:10: Sodium 132 L, Potassium 3.7, Chloride 106, Carbon Dioxide 16 L, Anion Gap 13.7, BUN 78 H, Creatinine 2.70 H, Estimated Creat Clear 35, Estimated GFR 23 L, Est GFR ( Amer) 28 L, Glucose 136 H D, Calcium 6.5 L I & O for Last 24 hours: Intake & Output 11/14/21 11/15/21 11/16/21 11/17/21 11:59 11:59 11:59 11:59 Intake Total 1425 / 1425 2695 / 2695 4021 / 4021 1177 / 1177 Output Total 350 / 350 900 / 900 1000 / 1000 Balance 1425 / 1425 2345 / 2345 3121 / 3121 177 / 177 Weight 208 lb 9 oz 211 lb 6.4 oz 215 lb 214 lb 15.987 oz Microbiology Reports for the Last 24 Hours: Microbiology 11/11/21 07:55 Buttock - Abscess - Final 11/11/21 07:55 Buttock - Abscess - Final - Constitutional no acute distress - *Routine Respiratory Exam Absent: respiratory distress - *Routine Cardiovascular Exam Absent: tachycardia - *Routine Skin Exam Comments: Stable perioneal/perianal wound. No spreading cellulitis.
--- NOTE | 2021-11-17 10:46 | HMH.PHACONS ---
- Pharmacy Consult Date: 11/17/21 Time: 10:47 Referring provider: DR. DAMIAN Reason for Consult:: VANCOMYCIN LEVEL Allergies and ADEs:: Allergies Allergy/AdvReac Type Severity Reaction Status Date / Time No Known Allergies Allergy Verified 11/10/21 14:28 Home Medications:: Home Medications Medication Instructions Recorded Confirmed Type Isosorbide Mononitrate [Imdur 60mg 60 mg PO DAILY 02/23/21 11/10/21 History ER tablet] latanoprost 0.005 % eye drops 1 drp OP DAILY ml 03/24/21 11/11/21 History montelukast 10 mg tablet 10 mg PO DAILY tab 03/24/21 11/10/21 History amiodarone 200 mg tablet 200 mg PO DAILY #90 tab 07/13/21 11/10/21 Rx Colchicine 0.6 mg PO DAILY 11/10/21 11/10/21 History Nitroglycerin 0.5 mg PO Q5MINP PRN 11/10/21 11/11/21 History Rivaroxaban [Xarelto] 20 mg PO QPMWITHMEAL 11/10/21 11/11/21 History Albuterol Sulfate [Proventil Hfa] 2 puff IH Q6HP PRN 11/11/21 11/11/21 History Atorvastatin Calcium [Lipitor 40mg 40 mg PO HS 11/11/21 11/11/21 History Tab] Dorzolamide HCl/Pf [Dorzolamide 2% 1 drp OP TID 11/11/21 11/11/21 History Eye Drop] Fluticasone/Umeclidin/Vilanter 1 puff IH DAILY 11/11/21 11/11/21 History [Trelegy Ellipta 200-62.5-25] Hydrocodone/Acetaminophen 1 tab PO Q8HP PRN 11/11/21 11/11/21 History [Hydrocodone-Acetamin 7.5-325] Ipratropium/Albuterol Sulfate 3 ml IH QIDP PRN 11/11/21 11/11/21 History [Duoneb 3mL neb] LORazepam [Lorazepam] 0.5 mg PO BIDP PRN 11/11/21 11/11/21 History Pantoprazole Sodium 40 mg PO DAILY 11/11/21 11/11/21 History Torsemide [Demadex 20mg tablet] 40 mg PO BID 11/11/21 11/11/21 History metOLazone [metOLazone 2.5mg 2.5 mg PO DAILY 11/11/21 11/11/21 History Tablet] Height: 1.8 m Weight: 97.522 kg Laboratory Results:: Laboratory Results - last 24 hr 11/16/21 22:47: Sodium 133 L, Potassium 3.9, Chloride 104, Carbon Dioxide 15 L, Anion Gap 17.9 H, BUN 78 H, Creatinine 2.70 H, Estimated Creat Clear 35, Estimated GFR 23 L, Est GFR ( Amer) 28 L D, Glucose 108 H, Calcium 6.6 L 11/16/21 22:47: Vancomycin Trough 42.8 H 11/17/21 02:35: Vancomycin Peak 28.0 11/17/21 06:10: WBC 14.7 H, RBC 3.26 L, Hgb 8.1 L, Hct 26.2 L, MCV 80.3, MCH 24.9 L, MCHC 31.0 L, RDW 18.0 H, Plt Count 288 D, MPV 10.0, Neut % (Auto) 91.3 H, Lymph % (Auto) 3.5 L, [place] % (Auto) 4.7, Eos % (Auto) 0.2, Baso % (Auto) 0.2, Neut # (Auto) 13.4 H, Lymph # (Auto) 0.5 L, [place] # (Auto) 0.7, Eos # (Auto) 0.0, Baso # (Auto) 0.0, Total Counted 100, Neutrophils % (Manual) 91 H, Lymphocytes % (Manual) 4 L, Monocytes % (Manual) 5, Platelet Estimate Normal, Hypochromasia 1+, Anisocytosis 1+, Microcytosis 1+ 11/17/21 06:10: Sodium 132 L, Potassium 3.7, Chloride 106, Carbon Dioxide 16 L, Anion Gap 13.7, BUN 78 H, Creatinine 2.70 H, Estimated Creat Clear 35, Estimated GFR 23 L, Est GFR ( Amer) 28 L, Glucose 136 H D, Calcium 6.5 L Medical History: Reports:: Congestive Heart Failure, Chronic Obstructive Pulmonary Disease (COPD), Coronary Artery Disease, Hyperlipidemia, Hypertension, Internal Pacemaker, MRSA Denies:: Cancer, Diabetes Mellitus Type 1, Diabetes Mellitus Type 2, Seizures Assessment and Plan (1) Perianal abscess Status: Acute Category: Medical Code(s): K61.0 - Anal abscess (2) Edema of scrotum Status: Acute Category: Medical Code(s): N50.89 - Other specified disorders of the male genital organs (3) Chest wall pain, chronic Status: Acute Category: Medical Code(s): R07.89 - Other chest pain; G89.29 - Other chronic pain (4) Deep venous thrombosis of upper extremity Status: Acute Qualifiers: Affected thrombotic vein of extremity: unspecified vein of extremity Chronicity: acute Laterality: left Qualified Code(s): I82.622 - Acute embolism and thrombosis of deep veins of left upper extremity Category: Medical Code(s): I82.629 - Acute embolism and thrombosis of deep veins of unspecified upper extremity (5) Dependence on supplemental oxy
--- NOTE | 2021-11-17 12:48 | HMH.CONFU ---
Internal Medicine - PN: Subj *Date: 11/17/21 *Time: 12:48 Interval history: Patient with improving penoscrotal edema. Patient also being treated for a gluteal abscess and cardiology following for history of heart disease. Recent ultrasound reportedly negative for a upper extremity DVT. Patient states he is sore from laying in the bed all day. Exam Vital signs and Labs for Last 24 Hours: Temp Pulse Resp BP Pulse Ox 98 F 66 20 142/69 H 95 11/17/21 08:00 11/17/21 11:17 11/17/21 08:00 11/17/21 08:00 11/17/21 11:17 Laboratory Results - last 24 hr 11/16/21 22:47: Sodium 133 L, Potassium 3.9, Chloride 104, Carbon Dioxide 15 L, Anion Gap 17.9 H, BUN 78 H, Creatinine 2.70 H, Estimated Creat Clear 35, Estimated GFR 23 L, Est GFR ( Amer) 28 L D, Glucose 108 H, Calcium 6.6 L 11/16/21 22:47: Vancomycin Trough 42.8 H 11/17/21 02:35: Vancomycin Peak 28.0 11/17/21 06:10: WBC 14.7 H, RBC 3.26 L, Hgb 8.1 L, Hct 26.2 L, MCV 80.3, MCH 24.9 L, MCHC 31.0 L, RDW 18.0 H, Plt Count 288 D, MPV 10.0, Neut % (Auto) 91.3 H, Lymph % (Auto) 3.5 L, [place] % (Auto) 4.7, Eos % (Auto) 0.2, Baso % (Auto) 0.2, Neut # (Auto) 13.4 H, Lymph # (Auto) 0.5 L, [place] # (Auto) 0.7, Eos # (Auto) 0.0, Baso # (Auto) 0.0, Total Counted 100, Neutrophils % (Manual) 91 H, Lymphocytes % (Manual) 4 L, Monocytes % (Manual) 5, Platelet Estimate Normal, Hypochromasia 1+, Anisocytosis 1+, Microcytosis 1+ 11/17/21 06:10: Sodium 132 L, Potassium 3.7, Chloride 106, Carbon Dioxide 16 L, Anion Gap 13.7, BUN 78 H, Creatinine 2.70 H, Estimated Creat Clear 35, Estimated GFR 23 L, Est GFR ( Amer) 28 L, Glucose 136 H D, Calcium 6.5 L I & O for Last 24 hours: Intake & Output 11/14/21 11/15/21 11/16/21 11/17/21 23:59 23:59 23:59 23:59 Intake Total 2160 / 2160 1952 / 2192 4246 / 4246 360 / 360 Output Total 550 / 750 1400 / 1700 300 / 300 Balance 2160 / 2160 1402 / 1442 2846 / 2546 60 / 60 Weight 94.602 kg 95.889 kg 97.522 kg 97.522 kg Microbiology Reports for the Last 24 Hours: Microbiology 11/11/21 07:55 Buttock - Abscess - Final 11/11/21 07:55 Buttock - Abscess - Final - Constitutional no acute distress - *Routine HEENT Exam Head: Present: normocephalic Eye: Present: EOMI, PERRL ENT: Present: mucous membranes moist - *Routine Neck Exam Present: full ROM. Absent: lymphadenopathy - *Routine Respiratory Exam Absent: accessory muscle use - *Routine Cardiovascular Exam Absent: JVD - *Routine Abdominal Exam Present: soft. Absent: tenderness - *Routine Exam Comments: Scrotum is still enlarged and swollen but less so than previous. There are some skin changes consistent with the previous massive swelling of the scrotum. Penile edema has resolved significantly. - *Routine Extremities Exam Absent: cyanosis, clubbing, edema - *Routine Skin Exam Present: warm. Absent: rash - *Routine Neurological Exam Present: alert, oriented X3 Assessment and Plan (1) Perianal abscess Status: Acute Category: Medical Code(s): K61.0 - Anal abscess (2) Edema of scrotum Status: Acute Category: Medical Code(s): N50.89 - Other specified disorders of the male genital organs Scrotal edema persist and is stable at this point. Continue scrotal elevation. (3) Chest wall pain, chronic Status: Acute Category: Medical Code(s): R07.89 - Other chest pain; G89.29 - Other chronic pain (4) Deep venous thrombosis of upper extremity Status: Acute Qualifiers: Affected thrombotic vein of extremity: unspecified vein of extremity Chronicity: acute Laterality: left Qualified Code(s): I82.622 - Acute embolism and thrombosis of deep veins of left upper extremity Category: Medical Code(s): I82.629 - Acute embolism and thrombosis of deep veins of unspecified upper extremity (5) Dependence on supplemental oxygen Status: Acute Category: Medical Code(s): Z99.81 - Dependence on supplemental oxygen (6) Dyspnea
[2021-11-17 13:50] LABS: Uric Acid 11.8 mg/dl (3.5-8.5)
--- NOTE | 2021-11-17 14:54 | PC.NURSE ---
called and spoke with gracy bliss about patient requests for something for sores in mouth. stated it was okay to order nystatin po
--- NOTE | 2021-11-17 14:58 | XR_ITS ---
FINAL REPORT CLINICAL HISTORY: Left knee effusion FINDINGS: 3 views of the left knee were obtained. There is no acute fracture or dislocation. There is moderate narrowing of the lateral compartment joint space with subchondral sclerosis and osteophyte formation. There are osteophytes along the undersurface of the patella. There is a moderate joint effusion. IMPRESSION: Moderately advanced osteoarthritis with a moderate joint effusion. Reviewed, Interpreted and Dictated by Dung Almonte MD Transcribed by Jose Johnson Authenticated by Dung Almonte MD on 11/17/2021 04:11:39 PM [facility]
[2021-11-18] VITALS (12 sets, daily range): BP systolic 124–153; BP diastolic 69–87; PULSE 60–76; RESP 17–22; TEMP 36.5–37.1; O2SAT 94–100; BMI 30.4
[2021-11-18 06:14] LABS: Basophils % 0.3 % (0.1-2.0); Chloride 105 mmol/L (98-107); Hematocrit 28.3 % (42.0-52.0); Hemoglobin 8.6 g/dL (14.1-18.0); Lymphocytes # 0.2 K/mm3 (0.7-4.5); Lymphocytes % 1.4 % (10-50); Mean Corpuscular HGB Conc 30.3 g/dL (31.8-35.4); Mean Corpuscular Hemoglobin 24.1 pg (27.0-31.2); Mean Corpuscular Volume 79.6 fl (80-94); Mean Platelet Volume 8.3 fl (7.4-10.4); Monocytes # 0.3 K/mm3 (0.1-1.0); Neutrophils # 13.1 K/mm3 (1.8-7.8); Neutrophils % 96.3 % (37.0-80.0); Platelet Count 290 K/mm3 (142-424); Potassium 4.2 mmoL/L (3.5-5.1); Red Blood Count 3.55 M/mm3 (4.60-6.20); Red Cell Distribution Width 17.9 % (11.5-17.5); Sodium 132 mmol/L (136-145); White Blood Count 13.6 K/mm3 (4.8-10.8)
[2021-11-18 06:17] LABS: Anion Gap 15.2 mEq/L (5-15); Blood Urea Nitrogen 75 mg/dl (9-20); Calcium 6.9 mg/dl (8.4-10.2); Carbon Dioxide 16 mmol/L (22.0-30.0); Creatinine Clearance Estimated 36 mL/min (50-200); Estimated Glomerular Filt Rate 24 ml/min (>60); GFR (African American) 30 ML/MIN (>60); Glucose 141 mg/dl (74-100)
[2021-11-18 06:23] LABS: MANUAL DIFFERENTIAL MANUAL DIFFERENTIAL (MANUAL DIFF)
--- NOTE | 2021-11-18 08:00 | HMH.GSPN ---
Subjective Narrative: The patient states that he feels better today . Progress Note: A&P (1) Perianal abscess Status: Acute Assessment and plan: Stable status post incision and drainage. The entire region continues to exude significant wetness . Although the patient may benefit from VAC dressing the source of the wetness is only partially the wound itself. Keep area as dry as possible as part of dressing changes (2) Edema of scrotum Status: Acute (3) Chest wall pain, chronic Status: Acute (4) Deep venous thrombosis of upper extremity Status: Acute (5) Dependence on supplemental oxygen Status: Acute (6) Dyspnea Status: Acute (7) Heart failure, unspecified Status: Acute (8) History of COVID-19 Status: Acute (9) MRSA infection Status: Acute (10) CHF (congestive heart failure) Status: Chronic (11) Coronary artery disease Status: Chronic (12) HTN (hypertension) Status: Chronic (13) History of cardiac pacemaker in situ Status: Chronic (14) NYHA class 2 heart failure with reduced ejection fraction Status: Chronic (15) SOB (shortness of breath) Status: Chronic (16) Renal abscess Status: Acute (17) Renal failure Status: Chronic (18) Acute on chronic renal insufficiency Status: Acute Exam Vital signs and Labs for Last 24 Hours: Temp Pulse Resp BP Pulse Ox 98.2 F 61 17 133/71 100 11/18/21 04:00 11/18/21 06:03 11/18/21 04:00 11/18/21 04:00 11/18/21 06:03 Laboratory Results - last 24 hr 11/17/21 06:10: Uric Acid 11.8 H 11/18/21 05:51: WBC 13.6 H, RBC 3.55 L, Hgb 8.6 L, Hct 28.3 L, MCV 79.6 L, MCH 24.1 L, MCHC 30.3 L, RDW 17.9 H, Plt Count 290, MPV 8.3, Neut % (Auto) 96.3 H, Lymph % (Auto) 1.4 L, [place] % (Auto) 2.0, Eos % (Auto) 0.0 L, Baso % (Auto) 0.3, Neut # (Auto) 13.1 H, Lymph # (Auto) 0.2 L, [place] # (Auto) 0.3, Eos # (Auto) 0.0, Baso # (Auto) 0.0 11/18/21 05:51: Sodium 132 L, Potassium 4.2, Chloride 105, Carbon Dioxide 16 L, Anion Gap 15.2 H, BUN 75 H, Creatinine 2.60 H, Estimated Creat Clear 36, Estimated GFR 24 L, Est GFR ( Amer) 30 L, Glucose 141 H, Calcium 6.9 L I & O for Last 24 hours: Intake & Output 11/15/21 11/16/21 11/17/21 11/18/21 11:59 11:59 11:59 11:59 Intake Total 2695 / 2695 4021 / 4021 1177 / 1177 2970 / 2970 Output Total 350 / 350 900 / 900 1000 / 1000 325 / 325 Balance 2345 / 2345 3121 / 3121 177 / 177 2645 / 2645 Weight 211 lb 6.4 oz 215 lb 214 lb 15.987 oz 217 lb 14.4 oz - Constitutional no acute distress - *Routine Respiratory Exam Absent: respiratory distress - *Routine Cardiovascular Exam Absent: tachycardia - *Routine Skin Exam Comments: Dressing in place. No spreading cellulitis.
[2021-11-18 09:18] LABS: Lymphocytes % 3 % (10-50); Monocytes % 3 % (2-9); Neutrophils % 94 % (42-76); Nucleated Red Blood Cells 1; Total Cells Counted 100
[2021-11-18 09:19] LABS: Anisocytosis 1+; Hypochromasia 1+; Microcytosis 1+; Platelet Estimate Normal
--- NOTE | 2021-11-18 09:38 | HMH.ACPN2 ---
Internal Medicine - PN: Subj *Date: 11/18/21 *Time: 08:30 Interval history: pt states knee feels better today Exam Vital signs and Labs for Last 24 Hours: Temp Pulse Resp BP Pulse Ox 98.4 F 74 17 124/87 96 11/18/21 08:00 11/18/21 08:00 11/18/21 08:00 11/18/21 08:00 11/18/21 08:00 Laboratory Results - last 24 hr 11/17/21 06:10: Uric Acid 11.8 H 11/18/21 05:51: WBC 13.6 H, RBC 3.55 L, Hgb 8.6 L, Hct 28.3 L, MCV 79.6 L, MCH 24.1 L, MCHC 30.3 L, RDW 17.9 H, Plt Count 290, MPV 8.3, Neut % (Auto) 96.3 H, Lymph % (Auto) 1.4 L, [place] % (Auto) 2.0, Eos % (Auto) 0.0 L, Baso % (Auto) 0.3, Neut # (Auto) 13.1 H, Lymph # (Auto) 0.2 L, [place] # (Auto) 0.3, Eos # (Auto) 0.0, Baso # (Auto) 0.0, Total Counted 100, Neutrophils % (Manual) 94 H, Lymphocytes % (Manual) 3 L, Monocytes % (Manual) 3, Nucleated RBCs 1, Platelet Estimate Normal, Hypochromasia 1+, Anisocytosis 1+, Microcytosis 1+ 11/18/21 05:51: Sodium 132 L, Potassium 4.2, Chloride 105, Carbon Dioxide 16 L, Anion Gap 15.2 H, BUN 75 H, Creatinine 2.60 H, Estimated Creat Clear 36, Estimated GFR 24 L, Est GFR ( Amer) 30 L, Glucose 141 H, Calcium 6.9 L I & O for Last 24 hours: Intake & Output 11/15/21 11/16/21 11/17/21 11/18/21 11:59 11:59 11:59 11:59 Intake Total 2695 / 2695 4021 / 4021 1177 / 1177 2970 / 2970 Output Total 350 / 350 900 / 900 1000 / 1000 325 / 325 Balance 2345 / 2345 3121 / 3121 177 / 177 2645 / 2645 Weight 211 lb 6.4 oz 215 lb 214 lb 15.987 oz 217 lb 14.4 oz - Constitutional no acute distress - *Routine HEENT Exam Head: Present: normocephalic Eye: Present: PERRL ENT: Present: mucous membranes moist - *Routine Neck Exam Present: supple. Absent: lymphadenopathy - *Routine Respiratory Exam Present: CTA bilaterally - *Routine Cardiovascular Exam Present: RRR - *Routine Abdominal Exam Present: soft, normoactive bowel sounds. Absent: tenderness - *Routine Exam Comments: dressing and packing in place - *Routine Extremities Exam Absent: cyanosis, clubbing, edema - *Routine Skin Exam Present: warm, wounds. Absent: rash Comments: dressing c/di - *Routine Neurological Exam Present: alert, oriented X3 Assessment and Plan (1) Perianal abscess Status: Acute Category: Medical Code(s): K61.0 - Anal abscess (2) Edema of scrotum Status: Acute Category: Medical Code(s): N50.89 - Other specified disorders of the male genital organs (3) Chest wall pain, chronic Status: Acute Category: Medical Code(s): R07.89 - Other chest pain; G89.29 - Other chronic pain (4) Deep venous thrombosis of upper extremity Status: Acute Qualifiers: Affected thrombotic vein of extremity: unspecified vein of extremity Chronicity: acute Laterality: left Qualified Code(s): I82.622 - Acute embolism and thrombosis of deep veins of left upper extremity Category: Medical Code(s): I82.629 - Acute embolism and thrombosis of deep veins of unspecified upper extremity (5) Dependence on supplemental oxygen Status: Acute Category: Medical Code(s): Z99.81 - Dependence on supplemental oxygen (6) Dyspnea Status: Acute Qualifiers: Dyspnea type: shortness of breath Qualified Code(s): R06.02 - Shortness of breath; R06.00 - Dyspnea, unspecified; R06.01 - Orthopnea Category: Medical Code(s): R06.00 - Dyspnea, unspecified (7) Heart failure, unspecified Status: Acute Category: Medical Code(s): I50.9 - Heart failure, unspecified (8) History of COVID-19 Status: Acute Category: Medical Code(s): Z86.16 - Personal history of COVID-19 (9) MRSA infection Status: Acute Category: Medical Code(s): A49.02 - Methicillin resistant Staphylococcus aureus infection, unspecified site (10) CHF (congestive heart failure) Status: Chronic Qualifiers: Heart failure type: unspecified Heart failure chronicity: chronic Qualified Code(s): I50.9 - Heart failure, unspecified Categor
--- NOTE | 2021-11-18 11:32 | HMH.PHACONS ---
- Pharmacy Consult Date: 11/18/21 Time: 11:32 Referring provider: DR. DAMIAN Reason for Consult:: VANCOMYCIN TROUGH LEVEL Allergies and ADEs:: Allergies Allergy/AdvReac Type Severity Reaction Status Date / Time No Known Allergies Allergy Verified 11/10/21 14:28 Home Medications:: Home Medications Medication Instructions Recorded Confirmed Type Isosorbide Mononitrate [Imdur 60mg 60 mg PO DAILY 02/23/21 11/10/21 History ER tablet] latanoprost 0.005 % eye drops 1 drp OP DAILY ml 03/24/21 11/11/21 History montelukast 10 mg tablet 10 mg PO DAILY tab 03/24/21 11/10/21 History amiodarone 200 mg tablet 200 mg PO DAILY #90 tab 07/13/21 11/10/21 Rx Colchicine 0.6 mg PO DAILY 11/10/21 11/10/21 History Nitroglycerin 0.5 mg PO Q5MINP PRN 11/10/21 11/11/21 History Rivaroxaban [Xarelto] 20 mg PO QPMWITHMEAL 11/10/21 11/11/21 History Albuterol Sulfate [Proventil Hfa] 2 puff IH Q6HP PRN 11/11/21 11/11/21 History Atorvastatin Calcium [Lipitor 40mg 40 mg PO HS 11/11/21 11/11/21 History Tab] Dorzolamide HCl/Pf [Dorzolamide 2% 1 drp OP TID 11/11/21 11/11/21 History Eye Drop] Fluticasone/Umeclidin/Vilanter 1 puff IH DAILY 11/11/21 11/11/21 History [Trelegy Ellipta 200-62.5-25] Hydrocodone/Acetaminophen 1 tab PO Q6HP PRN 11/11/21 11/17/21 History [Hydrocodone-Acetamin 7.5-325] Ipratropium/Albuterol Sulfate 3 ml IH QIDP PRN 11/11/21 11/11/21 History [Duoneb 3mL neb] LORazepam [Lorazepam] 0.5 mg PO BIDP PRN 11/11/21 11/11/21 History Pantoprazole Sodium 40 mg PO DAILY 11/11/21 11/11/21 History Torsemide [Demadex 20mg tablet] 40 mg PO BID 11/11/21 11/11/21 History metOLazone [metOLazone 2.5mg 2.5 mg PO DAILY 11/11/21 11/11/21 History Tablet] Height: 1.8 m Weight: 98.838 kg Laboratory Results:: Laboratory Results - last 24 hr 11/17/21 06:10: Uric Acid 11.8 H 11/18/21 05:51: WBC 13.6 H, RBC 3.55 L, Hgb 8.6 L, Hct 28.3 L, MCV 79.6 L, MCH 24.1 L, MCHC 30.3 L, RDW 17.9 H, Plt Count 290, MPV 8.3, Neut % (Auto) 96.3 H, Lymph % (Auto) 1.4 L, [place] % (Auto) 2.0, Eos % (Auto) 0.0 L, Baso % (Auto) 0.3, Neut # (Auto) 13.1 H, Lymph # (Auto) 0.2 L, [place] # (Auto) 0.3, Eos # (Auto) 0.0, Baso # (Auto) 0.0, Total Counted 100, Neutrophils % (Manual) 94 H, Lymphocytes % (Manual) 3 L, Monocytes % (Manual) 3, Nucleated RBCs 1, Platelet Estimate Normal, Hypochromasia 1+, Anisocytosis 1+, Microcytosis 1+ 11/18/21 05:51: Sodium 132 L, Potassium 4.2, Chloride 105, Carbon Dioxide 16 L, Anion Gap 15.2 H, BUN 75 H, Creatinine 2.60 H, Estimated Creat Clear 36, Estimated GFR 24 L, Est GFR ( Amer) 30 L, Glucose 141 H, Calcium 6.9 L 11/18/21 10:27: Vancomycin Trough 16.0 H Medical History: Reports:: Congestive Heart Failure, Chronic Obstructive Pulmonary Disease (COPD), Coronary Artery Disease, Hyperlipidemia, Hypertension, Internal Pacemaker, MRSA Denies:: Cancer, Diabetes Mellitus Type 1, Diabetes Mellitus Type 2, Seizures Assessment and Plan (1) Perianal abscess Status: Acute Category: Medical Code(s): K61.0 - Anal abscess (2) Edema of scrotum Status: Acute Category: Medical Code(s): N50.89 - Other specified disorders of the male genital organs (3) Chest wall pain, chronic Status: Acute Category: Medical Code(s): R07.89 - Other chest pain; G89.29 - Other chronic pain (4) Deep venous thrombosis of upper extremity Status: Acute Qualifiers: Affected thrombotic vein of extremity: unspecified vein of extremity Chronicity: acute Laterality: left Qualified Code(s): I82.622 - Acute embolism and thrombosis of deep veins of left upper extremity Category: Medical Code(s): I82.629 - Acute embolism and thrombosis of deep veins of unspecified upper extremity (5) Dependence on supplemental oxygen Status: Acute Category: Medical Code(s): Z99.81 - Dependence on supplemental oxygen (6) Dyspnea Status: Acute Qualifiers: Dyspnea type: shortness of breath Qualified Code(s): R06.02 - [place]
--- NOTE | 2021-11-18 12:54 | HMH.ORTHOCON ---
*Admission Date: 11/10/21 <Lillian Arreaga - 11/18/21 12:57> *Reason for consult:: Left knee pain <Lillian Arreaga - 11/18/21 12:57> *History of present illness: Patient reports receiving periodic intra-articular steroid injections into his left knee. He says the last injection was few months ago. He reports fairly good symptomatic relief following the injections which typically lasts for about 2 months. <Orlando Huber - 11/18/21 20:20> Patient is a 71-year-old male admitted to the acute inpatient service secondary to swelling/abscess of the left buttock, penis, and scrotum. Orthopedic consultation requested in regards to the patient's left knee pain/swelling. This morning the patient is lying comfortably in bed. He reports some pain in his left knee that he states is improved from the past few days. He states that he has had pain in his left knee for a while and has associated swelling. He denies clicking/locking sensations, or feelings of the knee giving out. He reports that he had a knee arthroscopy performed approximately 30 years ago but is unsure of the procedure performed, location, or surgeon. He states that following his initial surgery he continued to have pain in the left knee which required an additional knee arthroscopy to have loose bodies removed from his knee. At baseline he uses a cane to ambulate and lives in his own home. He denies fevers, chills, rigors, or distal tingling/numbness. His past medical history is significant for MRSA, congestive heart failure, HTN, HLD, chronic renal insufficiency, CAD with stent and internal pacemaker placement, gout, COPD with oxygen dependence, and DVT. He denies any other symptoms or concerns at this time. <Lillian Arreaga - 11/18/21 18:23> [facility] History Medical History: Reports:: Congestive Heart Failure, Chronic Obstructive Pulmonary Disease (COPD), Coronary Artery Disease, Hyperlipidemia, Hypertension, Internal Pacemaker, MRSA Denies:: Cancer, Diabetes Mellitus Type 1, Diabetes Mellitus Type 2, Seizures <Lillian Arreaga - 11/18/21 12:57> *Have you ever received a pneumonia vaccine?: Yes <Lillian Arreaga 11/18/21 12:57> *Have you received a flu vaccine this season?: Yes <Lillian Arreaga 11/18/21 12:57> Other Medical History: Denies: Blood Transfusion Reaction <Lillian Arreaga 11/18/21 12:57> Anesthesia experience/problems:: none <Lillian Arreaga 11/18/21 12:57> Laterality Cases: Left: Cataract <Lillian Arreaga 11/18/21 12:57> Other Surgeries: Yes: Angioplasty, Colonoscopy, Coronary Stent, Pacemaker <Lillian Arreaga 11/18/21 12:57> Amputation: No <Lillian Arreaga 11/18/21 12:57> Fractures: No <Lillian Arreaga 11/18/21 12:57> - *Social History Last grade of school completed: 7th or 8th <Lillian Arreaga 11/18/21 12:57> Smoking Status: Former smoker <Lillian Arreaga 11/18/21 12:57> Tobacco Type: smokeless tobacco <Lillian Arreaga 11/18/21 12:57> Alcohol Intake: never <Lillian Arreaga 11/18/21 12:57> Substance Use Type: denies use <Lillian Arreaga 11/18/21 12:57> *Occupational Status:: retired <Lillian Arreaga 11/18/21 12:57> Housing: house <Lillian Arreaga 11/18/21 12:57> Household Members: spouse <Lillian Arreaga 11/18/21 12:57> *Travel in the last 8 weeks: None <Lillian Arreaga 11/18/21 12:57> Family Hx:: Coronary Artery Disease <Lillian Arreaga 11/18/21 12:57> Review of Systems - Review of Systems Review of systems:: pertinent systems reviewed and negative unless documented below <Lillian Arreaga 11/18/21 15:17> - Constitutional Denies body ache(s), Denies chills, Denies fatigue, Denies fever(s), Denies headache(s), Denies malaise <Lillian Arreaga 11/18/21 15:17> - Eyes Denies blind spots, Denies blurry vision, Denies change in vision, Denies double vision <Lillian Arreaga - 11/18/21 15:17> - ENT Denies abnormal hearing, Denies dizziness, Denies difficulty swallowing, Denies headache(s), Denies hea
[2021-11-19] VITALS (9 sets, daily range): BP systolic 143–197; BP diastolic 69–99; PULSE 60–86; RESP 18–28; TEMP 35.6–36.7; O2SAT 96–100; BMI 30.4
[2021-11-19 06:54] LABS: Chloride 105 mmol/L (98-107); Sodium 131 mmol/L (136-145)
[2021-11-19 06:55] LABS: Potassium 4.2 mmoL/L (3.5-5.1)
[2021-11-19 06:58] LABS: Anion Gap 15.2 mEq/L (5-15); Calcium 6.6 mg/dl (8.4-10.2); Carbon Dioxide 15 mmol/L (22.0-30.0); Creatinine Clearance Estimated 35 mL/min (50-200); Estimated Glomerular Filt Rate 23 ml/min (>60); GFR (African American) 28 ML/MIN (>60); Glucose 148 mg/dl (74-100)
[2021-11-19 07:15] LABS: Blood Urea Nitrogen 84 mg/dl (9-20)
--- NOTE | 2021-11-19 07:29 | HMH.GSPN ---
Subjective Narrative: The patient states that he feels okay overall...the bottom is better...the knee is getting looked at Progress Note: A&P (1) Perianal abscess Status: Acute Assessment and plan: Overall, doing fairly well with current dressing changes. Continue to keep area as clean and dry as possible. Continue dry dressing changes. (2) Edema of scrotum Status: Acute (3) Chest wall pain, chronic Status: Acute (4) Deep venous thrombosis of upper extremity Status: Acute (5) Dependence on supplemental oxygen Status: Acute (6) Dyspnea Status: Acute (7) Heart failure, unspecified Status: Acute (8) History of COVID-19 Status: Acute (9) MRSA infection Status: Acute (10) CHF (congestive heart failure) Status: Chronic (11) Coronary artery disease Status: Chronic (12) HTN (hypertension) Status: Chronic (13) History of cardiac pacemaker in situ Status: Chronic (14) NYHA class 2 heart failure with reduced ejection fraction Status: Chronic (15) SOB (shortness of breath) Status: Chronic (16) Renal abscess Status: Acute (17) Renal failure Status: Chronic (18) Acute on chronic renal insufficiency Status: Acute Exam Vital signs and Labs for Last 24 Hours: Temp Pulse Resp BP Pulse Ox 97.9 F 60 20 146/89 H 100 11/19/21 04:00 11/19/21 04:00 11/19/21 04:00 11/19/21 04:00 11/19/21 04:00 Laboratory Results - last 24 hr 11/18/21 05:51: Total Counted 100, Neutrophils % (Manual) 94 H, Lymphocytes % (Manual) 3 L, Monocytes % (Manual) 3, Nucleated RBCs 1, Platelet Estimate Normal, Hypochromasia 1+, Anisocytosis 1+, Microcytosis 1+ 11/18/21 10:27: Vancomycin Trough 16.0 H 11/19/21 06:25: Sodium 131 L, Potassium 4.2, Chloride 105, Carbon Dioxide 15 L, Anion Gap 15.2 H, BUN 84 H, Creatinine 2.70 H, Estimated Creat Clear 35, Estimated GFR 23 L, Est GFR ( Amer) 28 L, Glucose 148 H, Calcium 6.6 L I & O for Last 24 hours: Intake & Output 11/16/21 11/17/21 11/18/21 11/19/21 11:59 11:59 11:59 11:59 Intake Total 4021 / 4021 1177 / 1177 3210 / 3210 600 / 600 Output Total 900 / 900 1000 / 1000 325 / 325 320 / 320 Balance 3121 / 3121 177 / 177 2885 / 2885 280 / 280 Weight 215 lb 214 lb 15.987 oz 217 lb 14.4 oz 217 lb 14.02 oz Microbiology Reports for the Last 24 Hours: Microbiology 11/18/21 19:00 Knee,Left - Other Gram Stain - Final - Constitutional no acute distress - *Routine Respiratory Exam Absent: respiratory distress - *Routine Cardiovascular Exam Absent: tachycardia - *Routine Skin Exam Comments: stable perianal/perineal wound
--- NOTE | 2021-11-19 09:45 | HMH.DCSUM ---
General - General Admission date:: 11/11/21 Discharge date: 11/19/21 HPI HPI: Patient is a 71-year-old white male, known to me from the office, who was admitted with Vitas of the left buttocks associated with pain and marked scrotal edema with penile swelling. Patient relays a history of MRSA buttock infection, right-sided, requiring incision and drainage several years ago at [facility] in [place]. Patient relays increasing redness and tenderness at the inferior aspect of the left buttocks over the last 2 days. Was recently associated with marked scrotal and penile edema. Patient was seen in consultation per Dr. James. Patient has a history of congestive heart failure and chronic renal insufficiency. His brain natruretic peptide was markedly elevated. Patient has history of coronary artery disease, stent deployment, and refractory chest wall discomfort. Patient has a history of severe gout with tophus formation. Patient has a history of COPD oxygen dependence Patient has history of Covid pneumonia, quired hospitalization in August of this year. During the course of his stay he developed a DVT in the left upper extremity, for which he was placed on Xarelto. Given patient's presentation, acute changes on physical exam, and constellation of comorbid features I elected to admit him for further treatment, including IV antibiotics, further delineation of his cellulitis, and consultation. Hospital Course Hospital Course: Patient is a 71-year-old white male, known to me from the office, who was admitted with Vitas of the left buttocks associated with pain and marked scrotal edema with penile swelling. Patient relays a history of MRSA buttock infection, right-sided, requiring incision and drainage several years ago at [facility] in [place]. Patient relays increasing redness and tenderness at the inferior aspect of the left buttocks over the last 2 days. Was recently associated with marked scrotal and penile edema. Patient was seen in consultation per Dr. James. 11/10/21 Abd/Pelvis CT: FINDINGS: Lungs: No air densities to suggest emphysematous changes. Liver: Normal. No mass. Gallbladder and bile ducts: Normal. No calcified stones. No ductal dilation. Pancreas: Normal. No ductal dilation. Spleen: Multiple calcific densities of the spleen are likely related to prior granulomatous process. Adrenal glands: Normal. No mass. Kidneys and ureters: Left renal Bosniak 1 cystic lesion that is homogeneous and fluid density (-9-20 HU), no septations or calcifications, having gupta smooth and thin. Measurement is 29 mm. No follow-up recommended. Stomach and bowel: Unremarkable. No obstruction. No mucosal thickening. Appendix: No evidence of appendicitis. Intraperitoneal space: Unremarkable. No free air. No significant fluid collection. Vasculature: Moderate calcific atherosclerotic disease of the abdominal aorta without aneurysmal dilatation is present. Lymph nodes: Unremarkable. No enlarged lymph nodes. Urinary bladder: Unremarkable as visualized. Reproductive: Unremarkable as visualized. Bones/joints: Unremarkable. No acute fracture. Soft tissues: Significant soft tissue swelling of the scrotum, and perineum soft tissues which can be seen with infectious process such as cellulitis. IMPRESSION: Significant soft tissue swelling of the scrotum, and perineum soft tissues which can be seen with infectious process such as cellulitis. No air densities to suggest emphysematous changes. Electronically signed by Elia Alves MD 11/11/21 Renal US: FINDINGS: The right kidney measures 11.2 cm in length. It is normal in echogenicity. There is no hydronephrosis. The left kidney measures 11.5 cm in length. It is normal in echogenicity. There is a 3 cm simple cyst in the upper lobe. There is no hydronephrosis. The spleen is enlarged measuring 13.8 cm. Limited images of the liver are unremarkab
[2021-11-19 10:25] LABS: Hematocrit 25.2 % (42.0-52.0); Hemoglobin 7.7 g/dL (14.1-18.0); Mean Corpuscular Volume 78.5 fl (80-94); Red Blood Count 3.21 M/mm3 (4.60-6.20)
[2021-11-19 10:28] LABS: Mean Corpuscular HGB Conc 30.6 g/dL (31.8-35.4); Mean Platelet Volume 12.2 fl (7.4-10.4); Platelet Count 338 K/mm3 (142-424); Red Cell Distribution Width 18.6 % (11.5-17.5)
[2021-11-19 10:29] LABS: White Blood Count 14.8 K/mm3 (4.8-10.8)
--- NOTE | 2021-11-19 14:48 | HMH.ORTHPN ---
Subjective Date: 11/19/21 <Lillian Arregaa - 11/19/21 14:48> Time: 09:00 <Lillian Arreaga 11/19/21 14:48> Principal diagnosis: left knee swelling, pain <Lillian Arreaga 11/19/21 14:48> Interval history: Patient is a 71-year-old male admitted to the acute inpatient service, being followed by orthopedic services in regards to his left knee pain/swelling. This morning the patient is lying comfortably in bed. He continues to report some pain in his left knee but states that it is improved from last night following diagnostic knee aspiration performed by Dr. Huber. He states that he is able to move the knee more without pain. He denies fevers, chills, rigors, or distal tingling/numbness. He denies any other symptoms or concerns at this time. <Lillian Arreaga 11/19/21 14:53> PN: Obj Ex Vital signs: Temp Pulse Resp BP Pulse Ox 98.0 F 60 26 H 197/82 H 96 11/19/21 15:56 11/19/21 16:00 11/19/21 15:56 11/19/21 15:56 11/19/21 15:56 <Orlando Huber - 11/19/21 20:34> Temp Pulse Resp BP Pulse Ox 97.8 F 61 28 H 175/89 H 98 11/19/21 12:00 11/19/21 12:00 11/19/21 12:00 11/19/21 12:00 11/19/21 12:00 <Lillian Arreaga 11/19/21 14:48> - Constitutional no acute distress, cooperative <Lillian Arreaga 11/19/21 14:53> - Routine HEENT Exam Head: Present: normocephalic, atraumatic <Lillian Arreaga 11/19/21 14:53> Eye: Present: EOMI, PERRL <Lillian Arreaga 11/19/21 14:53> ENT: Present: mucous membranes moist <Lillian Arreaga 11/19/21 14:53> - Routine Neck Exam Present: supple, full ROM. Absent: JVD, lymphadenopathy, tenderness <Lillian Arreaga 04/14/22 14:53> - Routine Respiratory Exam Absent: accessory muscle use, respiratory distress <Lillian Arreaga 11/19/21 14:53> Comments: Symmetric chest movement, able to speak in complete sentences <Lillian Arreaga 11/19/21 14:53> - Routine Cardiovascular Exam Present: RRR <Lillian Arreaga 11/19/21 14:53> Comments: Normal peripheral pulses <Lillian Arreaga 11/19/21 14:53> - Routine Abdominal Exam Present: soft. Absent: tenderness <Lillian Arreaga 11/19/21 14:53> - Routine Extremities Exam Comments: Upon examination the lower extremities: The limb lengths are equal. Upon examination of the left knee, dressings present are clean, dry, and intact. No evidence of drainage or bleeding noted. Knee range of motion is 5-110 degrees of flexion. Terminal flexion is painful. Knee joint is ligamentously stable. Thigh and calf are soft nontender; Homans' sign is negative. No clinical evidence of DVT noted. Posterior tibial pulse 1+; capillary refill is brisk. Sensation to light touch is grossly intact throughout. Patient is active mobilizing the ankle, foot, and toes. <Lillian Arreaga 11/19/21 14:54> - Routine Skin Exam Present: intact, warm, normal turgor. Absent: cyanosis, erythema, jaundice <Lillian Arreaga 11/19/21 14:53> - Routine Neurological Exam Present: alert, oriented X3, CN II-XII intact, moving all extremities, normal tone, normal speech. Absent: sensory deficit, motor deficit, altered mental status <ArreagaLillian 11/19/21 14:53> - Routine Psychiatric Exam Present: normal affect, cooperative <Lillian Arreaga 11/19/21 14:53> Progress Note: A&P (1) Perianal abscess Status: Acute (2) Edema of scrotum Status: Acute (3) Chest wall pain, chronic Status: Acute (4) Dependence on supplemental oxygen Status: Acute (5) Dyspnea Status: Acute (6) Heart failure, unspecified Status: Acute (7) History of COVID-19 Status: Acute (8) MRSA infection Status: Acute (9) CHF (congestive heart failure) Status: Chronic (10) Coronary artery disease Status: Chronic (11) HTN (hypertension) Status: Chronic (12) History of cardiac pacemaker in situ Status: Chronic (13) NYHA class 2 heart failure with reduced ejection fraction Status
[2021-11-19 15:31] LABS: Basophils % 0.3 % (0.1-2.0); Monocytes % 5.4 % (1.7-9.3); Neutrophils % 90.9 % (37.0-80.0)
[2021-11-19 15:32] LABS: Lymphocytes # 0.3 K/mm3 (0.7-4.5); MANUAL DIFFERENTIAL MANUAL DIFFERENTIAL (MANUAL DIFF); Monocytes # 0.8 K/mm3 (0.1-1.0); Neutrophils # 13.5 K/mm3 (1.8-7.8)
--- NOTE | 2021-11-19 16:12 | HMH.CONFU ---
Internal Medicine - PN: Subj *Date: 11/19/21 *Time: 16:12 Interval history: Patient with penoscrotal edema on admission. He also has left gluteal abscess that is being managed. Orthopedics is now seeing for some associated knee pain. Exam Vital signs and Labs for Last 24 Hours: Temp Pulse Resp BP Pulse Ox 98.0 F 60 26 H 197/82 H 96 11/19/21 15:56 11/19/21 15:56 11/19/21 15:56 11/19/21 15:56 11/19/21 15:56 Laboratory Results - last 24 hr 11/19/21 06:25: WBC 14.8 H, RBC 3.21 L, Hgb 7.7 L, Hct 25.2 L, MCV 78.5 L, MCH 24.0 L, MCHC 30.6 L, RDW 18.6 H, Plt Count 338, MPV 12.2 H, Neut % (Auto) 90.9 H, Lymph % (Auto) 2.0 L, [place] % (Auto) 5.4, Eos % (Auto) 0.0 L, Baso % (Auto) 0.3, Neut # (Auto) 13.5 H, Lymph # (Auto) 0.3 L, [place] # (Auto) 0.8, Eos # (Auto) 0.0, Baso # (Auto) 0.0, Total Counted TNP, Platelet Estimate TNP, RBC Morphology TNP 11/19/21 06:25: Sodium 131 L, Potassium 4.2, Chloride 105, Carbon Dioxide 15 L, Anion Gap 15.2 H, BUN 84 H, Creatinine 2.70 H, Estimated Creat Clear 35, Estimated GFR 23 L, Est GFR ( Amer) 28 L, Glucose 148 H, Calcium 6.6 L I & O for Last 24 hours: Intake & Output 11/16/21 11/17/21 11/18/21 11/19/21 23:59 23:59 23:59 23:59 Intake Total 4246 / 4246 2388 / 2388 1782 / 1782 480 / 480 Output Total 1400 / 1700 625 / 625 420 / 420 Balance 2846 / 2546 1763 / 1763 1782 / 1662 60 / 60 Weight 97.522 kg 97.522 kg 98.838 kg 98.827 kg Microbiology Reports for the Last 24 Hours: Microbiology 11/18/21 19:00 Synovial Fluid Gram Stain - Final 11/18/21 19:00 Knee,Left - Other Gram Stain - Final - Constitutional no acute distress - *Routine HEENT Exam Head: Present: normocephalic Eye: Present: EOMI, PERRL ENT: Present: mucous membranes moist - *Routine Neck Exam Present: supple. Absent: lymphadenopathy - *Routine Respiratory Exam Absent: accessory muscle use - *Routine Cardiovascular Exam Absent: JVD - *Routine Abdominal Exam Present: soft. Absent: tenderness - *Routine Exam Comments: Scrotal examination shows significant improvement over the last couple of days it some skin changes still present due to the tension placed on the scan when it was massively swollen. - *Routine Extremities Exam Absent: cyanosis, clubbing, edema - *Routine Skin Exam Present: warm. Absent: rash - *Routine Neurological Exam Present: alert, oriented X3 Assessment and Plan (1) Perianal abscess Status: Acute Category: Medical Code(s): K61.0 - Anal abscess (2) Edema of scrotum Status: Acute Category: Medical Code(s): N50.89 - Other specified disorders of the male genital organs Scrotal edema starting to improve significantly. There is much less tension present scrotal gupta are much softer. Continue scrotal elevation. (3) Chest wall pain, chronic Status: Acute Category: Medical Code(s): R07.89 - Other chest pain; G89.29 - Other chronic pain (4) Dependence on supplemental oxygen Status: Acute Category: Medical Code(s): Z99.81 - Dependence on supplemental oxygen (5) Dyspnea Status: Acute Qualifiers: Dyspnea type: shortness of breath Qualified Code(s): R06.02 - Shortness of breath; R06.00 - Dyspnea, unspecified; R06.01 - Orthopnea Category: Medical Code(s): R06.00 - Dyspnea, unspecified (6) Heart failure, unspecified Status: Acute Category: Medical Code(s): I50.9 - Heart failure, unspecified (7) History of COVID-19 Status: Acute Category: Medical Code(s): Z86.16 - Personal history of COVID-19 (8) MRSA infection Status: Acute Category: Medical Code(s): A49.02 - Methicillin resistant Staphylococcus aureus infection, unspecified site (9) CHF (congestive heart failure) Status: Chronic Qualifiers: Heart failure type: unspecified Heart failure chronicity: chronic Qualified Code(s): I50.9 - Heart failure, unspecified Category: Medical Code(s): I50.9 - Heart failure, unspecifie
[2021-11-20] VITALS (11 sets, daily range): BP systolic 98–148; BP diastolic 57–88; PULSE 60–82; RESP 18–22; TEMP 36.2–36.5; O2SAT 95–100; BMI 31.2
--- NOTE | 2021-11-20 08:37 | HMH.GSPN ---
Subjective Patient reports: no new complaints Progress Note: A&P (1) Perianal abscess Status: Acute Assessment and plan: Continue dressing changes (2) Edema of scrotum Status: Acute (3) Chest wall pain, chronic Status: Acute (4) Dependence on supplemental oxygen Status: Acute (5) Dyspnea Status: Acute (6) Heart failure, unspecified Status: Acute (7) History of COVID-19 Status: Acute (8) MRSA infection Status: Acute (9) CHF (congestive heart failure) Status: Chronic (10) Coronary artery disease Status: Chronic (11) HTN (hypertension) Status: Chronic (12) History of cardiac pacemaker in situ Status: Chronic (13) NYHA class 2 heart failure with reduced ejection fraction Status: Chronic (14) SOB (shortness of breath) Status: Chronic (15) Renal abscess Status: Acute (16) Renal failure Status: Chronic (17) Acute on chronic renal insufficiency Status: Acute (18) E coli infection Status: Acute (19) Klebsiella pneumoniae infection Status: Acute (20) Gout attack Status: Acute (21) Effusion of knee joint, left Status: Acute Exam Vital signs and Labs for Last 24 Hours: Temp Pulse Resp BP Pulse Ox 97.7 F 60 18 133/77 100 11/20/21 08:00 11/20/21 08:00 11/20/21 08:00 11/20/21 08:00 11/20/21 08:00 Laboratory Results - last 24 hr 11/19/21 06:25: WBC 14.8 H, RBC 3.21 L, Hgb 7.7 L, Hct 25.2 L, MCV 78.5 L, MCH 24.0 L, MCHC 30.6 L, RDW 18.6 H, Plt Count 338, MPV 12.2 H, Neut % (Auto) 90.9 H, Lymph % (Auto) 2.0 L, [place] % (Auto) 5.4, Eos % (Auto) 0.0 L, Baso % (Auto) 0.3, Neut # (Auto) 13.5 H, Lymph # (Auto) 0.3 L, [place] # (Auto) 0.8, Eos # (Auto) 0.0, Baso # (Auto) 0.0, Total Counted TNP, Platelet Estimate TNP, RBC Morphology TNP I & O for Last 24 hours: Intake & Output 11/17/21 11/18/21 11/19/21 11/20/21 11:59 11:59 11:59 11:59 Intake Total 1177 / 1177 3210 / 3210 960 / 960 360 / 360 Output Total 1000 / 1000 325 / 325 420 / 420 120 / 120 Balance 177 / 177 2885 / 2885 540 / 540 240 / 240 Weight 214 lb 15.987 oz 217 lb 14.4 oz 217 lb 14.02 oz 223 lb 3.2 oz Microbiology Reports for the Last 24 Hours: Microbiology 11/18/21 19:00 Synovial Fluid Gram Stain - Final 11/18/21 19:00 Synovial Fluid Body Fluid Culture - Preliminary - Constitutional no acute distress - *Routine Respiratory Exam Absent: respiratory distress - *Routine Cardiovascular Exam Absent: tachycardia - *Routine Skin Exam Comments: Perianal/perineal wound margin clean. No significant changes noted.
--- NOTE | 2021-11-20 09:24 | HMH.ACPN2 ---
Internal Medicine - PN: Subj *Date: 11/20/21 *Time: 08:50 Interval history: pt sitting up in bed. states he is doing better but still very weak. Exam Vital signs and Labs for Last 24 Hours: Temp Pulse Resp BP Pulse Ox 97.7 F 60 18 133/77 100 11/20/21 08:00 11/20/21 08:00 11/20/21 08:00 11/20/21 08:00 11/20/21 08:00 Laboratory Results - last 24 hr 11/19/21 06:25: WBC 14.8 H, RBC 3.21 L, Hgb 7.7 L, Hct 25.2 L, MCV 78.5 L, MCH 24.0 L, MCHC 30.6 L, RDW 18.6 H, Plt Count 338, MPV 12.2 H, Neut % (Auto) 90.9 H, Lymph % (Auto) 2.0 L, [place] % (Auto) 5.4, Eos % (Auto) 0.0 L, Baso % (Auto) 0.3, Neut # (Auto) 13.5 H, Lymph # (Auto) 0.3 L, [place] # (Auto) 0.8, Eos # (Auto) 0.0, Baso # (Auto) 0.0, Total Counted TNP, Platelet Estimate TNP, RBC Morphology TNP I & O for Last 24 hours: Intake & Output 11/17/21 11/18/21 11/19/21 11/20/21 11:59 11:59 11:59 11:59 Intake Total 1177 / 1177 3210 / 3210 960 / 960 360 / 360 Output Total 1000 / 1000 325 / 325 420 / 420 120 / 120 Balance 177 / 177 2885 / 2885 540 / 540 240 / 240 Weight 214 lb 15.987 oz 217 lb 14.4 oz 217 lb 14.02 oz 223 lb 3.2 oz Microbiology Reports for the Last 24 Hours: Microbiology 11/18/21 19:00 Synovial Fluid Gram Stain - Final 11/18/21 19:00 Synovial Fluid Body Fluid Culture - Preliminary - Constitutional no acute distress - *Routine HEENT Exam Head: Present: normocephalic Eye: Present: PERRL ENT: Present: mucous membranes moist - *Routine Neck Exam Present: supple. Absent: lymphadenopathy - *Routine Respiratory Exam Present: CTA bilaterally - *Routine Cardiovascular Exam Present: RRR - *Routine Abdominal Exam Present: soft, normoactive bowel sounds. Absent: tenderness - *Routine Extremities Exam Present: edema, tenderness. Absent: cyanosis, clubbing Comments: left knee tender to palpate with swelling to joint - *Routine Skin Exam Present: warm, wounds. Absent: rash Comments: dressing and packing in place, edema and redness improved - *Routine Neurological Exam Present: alert, oriented X3 Assessment and Plan (1) Perianal abscess Status: Acute Category: Medical Code(s): K61.0 - Anal abscess (2) Edema of scrotum Status: Acute Category: Medical Code(s): N50.89 - Other specified disorders of the male genital organs (3) Chest wall pain, chronic Status: Acute Category: Medical Code(s): R07.89 - Other chest pain; G89.29 - Other chronic pain (4) Dependence on supplemental oxygen Status: Acute Category: Medical Code(s): Z99.81 - Dependence on supplemental oxygen (5) Dyspnea Status: Acute Qualifiers: Dyspnea type: shortness of breath Qualified Code(s): R06.02 - Shortness of breath; R06.00 - Dyspnea, unspecified; R06.01 - Orthopnea Category: Medical Code(s): R06.00 - Dyspnea, unspecified (6) Heart failure, unspecified Status: Acute Category: Medical Code(s): I50.9 - Heart failure, unspecified (7) History of COVID-19 Status: Acute Category: Medical Code(s): Z86.16 - Personal history of COVID-19 (8) MRSA infection Status: Acute Category: Medical Code(s): A49.02 - Methicillin resistant Staphylococcus aureus infection, unspecified site (9) CHF (congestive heart failure) Status: Chronic Qualifiers: Heart failure type: unspecified Heart failure chronicity: chronic Qualified Code(s): I50.9 - Heart failure, unspecified Category: Medical Code(s): I50.9 - Heart failure, unspecified (10) Coronary artery disease Status: Chronic Qualifiers: Coronary Disease-Associated Artery/Lesion type: [place] artery [place] vs. transplanted heart: [place] heart Associated angina: without angina Qualified Code(s): I25.10 - Atherosclerotic heart disease of [place] coronary artery without angina pectoris Category: Medical Code(s): I25.10 - Atherosclerotic heart disease of [place] coronary artery without angina pectoris (11) HTN
[2021-11-20 09:27] LABS: Basophils % 0.3 % (0.1-2.0); Eosinophils % 0.1 % (0.1-12.0); Hematocrit 27.5 % (42.0-52.0); Hemoglobin 8.3 g/dL (14.1-18.0); Lymphocytes # 0.5 K/mm3 (0.7-4.5); Lymphocytes % 3.4 % (10-50); Mean Corpuscular Hemoglobin 24.1 pg (27.0-31.2); Mean Corpuscular Volume 80.5 fl (80-94); Mean Platelet Volume 9.5 fl (7.4-10.4); Monocytes # 0.6 K/mm3 (0.1-1.0); Monocytes % 4.4 % (1.7-9.3); Neutrophils % 91.8 % (37.0-80.0); Platelet Count 370 K/mm3 (142-424); Red Blood Count 3.42 M/mm3 (4.60-6.20); Red Cell Distribution Width 18.4 % (11.5-17.5)
[2021-11-20 09:29] LABS: Chloride 104 mmol/L (98-107); Potassium 4.1 mmoL/L (3.5-5.1); Sodium 131 mmol/L (136-145)
[2021-11-20 09:32] LABS: Calcium 6.1 mg/dl (8.4-10.2); Carbon Dioxide 14 mmol/L (22.0-30.0); Creatinine Clearance Estimated 32 mL/min (50-200); Estimated Glomerular Filt Rate 21 ml/min (>60); GFR (African American) 25 ML/MIN (>60); Glucose 87 mg/dl (74-100)
[2021-11-20 09:36] LABS: Blood Urea Nitrogen 91 mg/dl (9-20)
[2021-11-20 09:42] LABS: Anion Gap 17.1 mEq/L (5-15)
[2021-11-20 09:44] LABS: MANUAL DIFFERENTIAL MANUAL DIFFERENTIAL (MANUAL DIFF)
[2021-11-20 10:45] LABS: Burr Cells 1+; Hypochromasia 2+; Lymphocytes % 6 % (10-50); Monocytes % 4 % (2-9); Neutrophils % 90 % (42-76); Platelet Estimate Normal; Total Cells Counted 100
[2021-11-20 12:29] LABS: Clarity,Fluid Turbid (Clear); Color,Fluid Red (Yellow); Eosinophils,Fluid 0 % (Not Estab.); Lymphocytes,Fluid 1 % (Not Estab.); Macrophages,Fluid 1 % (Not Estab.); Polys,Fluid 98 % (Not Estab.)
--- NOTE | 2021-11-20 12:38 | HMH.ORTHPN ---
Subjective Date: 11/20/21 <Lillian Arreaga - 11/20/21 12:39> Time: 12:15 <Lillian Arreaga 11/20/21 12:39> Principal diagnosis: left knee swelling, pain <Lillian Arreaga 11/20/21 12:39> Interval history: Patient is a 71-year-old male admitted to the acute inpatient service, being followed by orthopedic services in regards to his left knee pain/swelling. This afternoon the patient is lying comfortably in bed and his is present at the bedside. He continues to report some pain in his left knee but states that it is well controlled with pain medication. He states that he is eating and drinking well and denies any episodes of nausea or vomiting. He denies fevers, chills, rigors, or distal tingling/numbness. He denies any other symptoms or concerns at this time. <Lillian Arreaga 11/20/21 12:51> PN: Obj Ex Vital signs: Temp Pulse Resp BP Pulse Ox 97.6 F 60 18 121/88 98 11/20/21 15:27 11/20/21 15:27 11/20/21 15:27 11/20/21 15:27 11/20/21 15:27 <Orlando Huberan - 11/20/21 18:19> Temp Pulse Resp BP Pulse Ox 97.6 F 63 18 145/57 H 99 11/20/21 11:29 11/20/21 11:29 11/20/21 11:29 11/20/21 11:29 11/20/21 11:29 <Lillian Arreaga 11/20/21 12:39> - Constitutional no acute distress, chronically ill appearing, cooperative <Lillian Arreaga 11/20/21 12:45> - Routine HEENT Exam Head: Present: normocephalic, atraumatic <Lillian Arreaga 11/20/21 12:45> Eye: Present: EOMI, PERRL <Lillian Arreaga 11/20/21 12:45> ENT: Present: mucous membranes moist <Lillian Arreaga 11/20/21 12:45> - Routine Neck Exam Present: supple, full ROM, trachea midline. Absent: JVD, lymphadenopathy <Lillian Arreaga 11/20/21 12:45> - Routine Respiratory Exam Absent: accessory muscle use, respiratory distress <Lillian Arreaga 11/20/21 12:45> - Routine Cardiovascular Exam Present: RRR <Lillian Arreaga 11/20/21 12:45> - Routine Abdominal Exam Present: soft. Absent: tenderness <Lillian Arreaga 11/20/21 12:45> - Routine Extremities Exam Present: pulses intact, normal capillary refill. Absent: calf tenderness <Lillian Arreaga 11/20/21 12:45> Comments: Upon examination the lower extremities: The limb lengths are equal. Upon examination of the left knee, the skin is intact. No erythema, induration, purulent drainage, bleeding, or other signs of infection noted. Knee range of motion is 5-120 degrees of flexion. Terminal flexion is painful. Knee joint is ligamentously stable. Thigh and calf are soft nontender; Homans' sign is negative. No clinical evidence of DVT noted. Posterior tibial pulse 1+; capillary refill is brisk. Sensation to light touch is grossly intact throughout. Patient is active mobilizing the ankle, foot, and toes. <Lillian Arreaga 11/20/21 12:45> - Routine Skin Exam Present: warm. Absent: cyanosis, erythema, lesions, jaundice <Lillian Arreaga 11/20/21 12:45> - Routine Neurological Exam Present: alert, oriented X3, CN II-XII intact, moving all extremities, normal tone, normal speech. Absent: sensory deficit, motor deficit, altered mental status <Lillian Arreaga 11/20/21 12:45> - Routine Psychiatric Exam Present: normal affect, cooperative <Lillian Arreaga 11/20/21 12:45> Progress Note: A&P (1) Perianal abscess Status: Acute (2) Edema of scrotum Status: Acute (3) Chest wall pain, chronic Status: Acute (4) Dependence on supplemental oxygen Status: Acute (5) Dyspnea Status: Acute (6) Heart failure, unspecified Status: Acute (7) History of COVID-19 Status: Acute (8) MRSA infection Status: Acute (9) CHF (congestive heart failure) Status: Chronic (10) Coronary artery disease Status: Chronic (11) HTN (hypertension) Status: Chronic (12) History of cardiac pacemaker in situ Status: Chronic (13) NYHA class 2 heart failure with reduced ejection fraction Status: Chronic (14) SO
[2021-11-20 13:15] LABS: Nucleated cells, Syn. Fluid Comment: cells/uL (0-200)
--- NOTE | 2021-11-20 18:33 | PC.NURSE ---
PICC Line in RUE dressing changed 11/20/21 at 1400
[2021-11-21] VITALS (10 sets, daily range): BP systolic 125–162; BP diastolic 65–99; PULSE 59–68; RESP 18–26; TEMP 36.3–36.7; O2SAT 93–99; BMI 31.6
--- NOTE | 2021-11-21 04:12 | PC.NURSE ---
Pt was anxious early in shift and c/o soa. Pt has also c/o discomfort to (L) hip, bottom and legs. Medicated per oct. DSG to ulceration on bottom done. Wet/dry. Scrotum noted to be erythemic and edematous with ulcerations. Pt is incontinent at times, making it difficult to keep DSG from becoming soiled. LLE is edematous. VSS. No other concerns. Will continue to monitor.
[2021-11-21 06:27] LABS: Basophils % 0.3 % (0.1-2.0); Eosinophils # 0.1 K/mm3 (0.0-0.4); Eosinophils % 0.4 % (0.1-12.0); Hematocrit 25.9 % (42.0-52.0); Hemoglobin 7.8 g/dL (14.1-18.0); Lymphocytes # 0.5 K/mm3 (0.7-4.5); Lymphocytes % 3.7 % (10-50); Mean Corpuscular HGB Conc 30.2 g/dL (31.8-35.4); Mean Corpuscular Hemoglobin 23.9 pg (27.0-31.2); Mean Corpuscular Volume 79.3 fl (80-94); Mean Platelet Volume 9.4 fl (7.4-10.4); Monocytes # 0.5 K/mm3 (0.1-1.0); Monocytes % 4.2 % (1.7-9.3); Neutrophils # 11.7 K/mm3 (1.8-7.8); Neutrophils % 91.5 % (37.0-80.0); Platelet Count 349 K/mm3 (142-424); Red Blood Count 3.26 M/mm3 (4.60-6.20); Red Cell Distribution Width 18.6 % (11.5-17.5); White Blood Count 12.8 K/mm3 (4.8-10.8)
[2021-11-21 06:36] LABS: Chloride 104 mmol/L (98-107); MANUAL DIFFERENTIAL MANUAL DIFFERENTIAL (MANUAL DIFF); Sodium 130 mmol/L (136-145)
[2021-11-21 06:39] LABS: Calcium 5.7 mg/dl (8.4-10.2); Carbon Dioxide 14 mmol/L (22.0-30.0); Creatinine Clearance Estimated 33 mL/min (50-200); Estimated Glomerular Filt Rate 21 ml/min (>60); GFR (African American) 25 ML/MIN (>60); Glucose 92 mg/dl (74-100)
[2021-11-21 07:10] LABS: Blood Urea Nitrogen 90 mg/dl (9-20)
[2021-11-21 07:34] LABS: Hypochromasia 1+; Lymphocytes % 3 % (10-50); Monocytes % 4 % (2-9); Neutrophils % 93 % (42-76); Total Cells Counted 100
[2021-11-21 07:35] LABS: Anisocytosis 1+; Microcytosis 1+; Platelet Estimate Normal
--- NOTE | 2021-11-21 08:51 | HMH.ACPN2 ---
Internal Medicine - PN: Subj *Date: 11/22/21 *Time: 06:53 Interval history: doing ok this am with hgb sl lower and renal fuction sl down Exam Vital signs and Labs for Last 24 Hours: Temp Pulse Resp BP Pulse Ox 97.4 F L 59 L 24 156/99 H 98 11/21/21 08:00 11/21/21 08:00 11/21/21 08:00 11/21/21 08:00 11/21/21 08:00 Laboratory Results - last 24 hr 11/18/21 19:00: Fluid Clarity Turbid A, Fluid Lining Cell TNP, Synovial Color Red A, Synovial RBC TNP, Synovial Tot Nuc Cell Comment:, Synovial Eosinophils% 0, Synovial Polynuclear % 98, Synovial Lymphocytes % 1, Synovial Macrophages % 1, Synovial Crystal ID Comment, Synovial Fluid Comment TNP 11/20/21 06:50: WBC 13.0 H, RBC 3.42 L, Hgb 8.3 L, Hct 27.5 L, MCV 80.5, MCH 24.1 L, MCHC 30.0 L, RDW 18.4 H, Plt Count 370, MPV 9.5, Neut % (Auto) 91.8 H, Lymph % (Auto) 3.4 L, [place] % (Auto) 4.4, Eos % (Auto) 0.1, Baso % (Auto) 0.3, Neut # (Auto) 12.0 H, Lymph # (Auto) 0.5 L, [place] # (Auto) 0.6, Eos # (Auto) 0.0, Baso # (Auto) 0.0, Total Counted 100, Neutrophils % (Manual) 90 H, Lymphocytes % (Manual) 6 L, Monocytes % (Manual) 4, Platelet Estimate Normal, Hypochromasia 2+, [place] Cells 1+ 11/20/21 06:50: Sodium 131 L, Potassium 4.1, Chloride 104, Carbon Dioxide 14 L, Anion Gap 17.1 H, BUN 91 H, Creatinine 3.00 H, Estimated Creat Clear 32, Estimated GFR 21 L, Est GFR ( Amer) 25 L, Glucose 87, Calcium 6.1 L 11/21/21 06:10: WBC 12.8 H, RBC 3.26 L, Hgb 7.8 L, Hct 25.9 L, MCV 79.3 L, MCH 23.9 L, MCHC 30.2 L, RDW 18.6 H, Plt Count 349, MPV 9.4, Neut % (Auto) 91.5 H, Lymph % (Auto) 3.7 L, [place] % (Auto) 4.2, Eos % (Auto) 0.4, Baso % (Auto) 0.3, Neut # (Auto) 11.7 H, Lymph # (Auto) 0.5 L, [place] # (Auto) 0.5, Eos # (Auto) 0.1, Baso # (Auto) 0.0, Total Counted 100, Neutrophils % (Manual) 93 H, Lymphocytes % (Manual) 3 L, Monocytes % (Manual) 4, Platelet Estimate Normal, Hypochromasia 1+, Anisocytosis 1+, Microcytosis 1+ 11/21/21 06:10: Sodium 130 L, Potassium 4.0, Chloride 104, Carbon Dioxide 14 L, Anion Gap 16.0 H, BUN 90 H, Creatinine 3.00 H, Estimated Creat Clear 33, Estimated GFR 21 L, Est GFR ( Amer) 25 L, Glucose 92, Calcium 5.7 L I & O for Last 24 hours: Intake & Output 11/18/21 11/19/21 11/20/21 11/21/21 11:59 11:59 11:59 11:59 Intake Total 3210 / 3210 960 / 960 360 / 360 1690 / 1690 Output Total 325 / 325 420 / 420 320 / 320 525 / 525 Balance 2885 / 2885 540 / 540 40 / 40 1165 / 1165 Weight 217 lb 14.4 oz 217 lb 14.02 oz 223 lb 3.2 oz 225 lb 9.6 oz Microbiology Reports for the Last 24 Hours: Microbiology 11/18/21 19:00 Synovial Fluid Gram Stain - Final 11/18/21 19:00 Synovial Fluid Body Fluid Culture - Preliminary - Constitutional no acute distress, obese - *Routine HEENT Exam Head: Present: normocephalic Eye: Present: EOMI, PERRL ENT: Present: mucous membranes dry - *Routine Neck Exam Absent: JVD - *Routine Respiratory Exam Present: decreased breath sounds - *Routine Cardiovascular Exam Present: RRR, murmur - *Routine Abdominal Exam Present: soft - *Routine Extremities Exam Present: edema Comments: effusion lt knee - *Routine Skin Exam Present: dry. Absent: erythema - *Routine Neurological Exam Present: alert, oriented X3, CN II-XII intact - Routine Psychiatric Exam Present: cooperative Assessment and Plan (1) Perianal abscess Status: Acute Category: Medical Code(s): K61.0 - Anal abscess (2) Edema of scrotum Status: Acute Category: Medical Code(s): N50.89 - Other specified disorders of the male genital organs (3) Chest wall pain, chronic Status: Acute Category: Medical Code(s): R07.89 - Other chest pain; G89.29 - Other chronic pain (4) Dependence on supplemental oxygen Status: Acute Category: Medical Code(s): Z99.81 - Dependence on supplemental oxygen (5) Dyspnea Status: Acute Qualifiers: Dyspnea type: shortness of breath Qualified Code(s): R06.02 - Shortness of breath; R06.00 - Dysp
[2021-11-21 11:09] LABS: Vancomycin,Trough 21.5 ug/mL (5.0-10.0)
--- NOTE | 2021-11-21 11:23 | HMH.PHACONS ---
- Pharmacy Consult Date: 11/21/21 Time: 11:23 Referring provider: DR DAMIAN Reason for Consult:: VANCOMYCIN DOSING ADJUSTMENT Allergies and ADEs:: Allergies Allergy/AdvReac Type Severity Reaction Status Date / Time No Known Allergies Allergy Verified 11/10/21 14:28 Home Medications:: Home Medications Medication Instructions Recorded Confirmed Type Isosorbide Mononitrate [Imdur 60mg 60 mg PO DAILY 02/23/21 11/10/21 History ER tablet] latanoprost 0.005 % eye drops 1 drp OP DAILY ml 03/24/21 11/11/21 History montelukast 10 mg tablet 10 mg PO DAILY tab 03/24/21 11/10/21 History amiodarone 200 mg tablet 200 mg PO DAILY #90 tab 07/13/21 11/10/21 Rx Colchicine 0.6 mg PO DAILY 11/10/21 11/10/21 History Nitroglycerin 0.5 mg PO Q5MINP PRN 11/10/21 11/11/21 History Rivaroxaban [Xarelto 20mg Tablet*] 20 mg PO QPMWITHMEAL 11/10/21 11/11/21 History Albuterol Sulfate [Proventil Hfa] 2 puff IH Q6HP PRN 11/11/21 11/11/21 History Atorvastatin Calcium [Lipitor 40mg 40 mg PO HS 11/11/21 11/11/21 History Tab] Dorzolamide HCl/Pf [Dorzolamide 2% 1 drp OP TID 11/11/21 11/11/21 History Eye Drop] Fluticasone/Umeclidin/Vilanter 1 puff IH DAILY 11/11/21 11/11/21 History [Trelegy Ellipta 200-62.5-25] Hydrocodone/Acetaminophen 1 tab PO Q6HP PRN 11/11/21 11/17/21 History [Hydrocodone-Acetamin 7.5-325] Ipratropium/Albuterol Sulfate 3 ml IH QIDP PRN 11/11/21 11/11/21 History [Duoneb 3mL neb] Pantoprazole Sodium 40 mg PO DAILY 11/11/21 11/11/21 History Torsemide [Demadex 20mg tablet] 40 mg PO BID 11/11/21 11/11/21 History metOLazone [metOLazone 2.5mg 2.5 mg PO DAILY 11/11/21 11/11/21 History Tablet] Ceftriaxone Sodium [Rocephin 1gm 1 gm IV Q24H 5 Days #5 ml 11/19/21 Rx vial] Vancomycin/Water For Inj (Peg) 1.25 gm IV Q36H ml 11/19/21 Rx [Vancomycin 1.25gm/250mL (PEG) Premix] Height: 1.8 m Weight: 102.33 kg Laboratory Results:: Laboratory Results - last 24 hr 11/18/21 19:00: Fluid Clarity Turbid A, Fluid Lining Cell TNP, Synovial Color Red A, Synovial RBC TNP, Synovial Tot Nuc Cell Comment:, Synovial Eosinophils% 0, Synovial Polynuclear % 98, Synovial Lymphocytes % 1, Synovial Macrophages % 1, Synovial Crystal ID Comment, Synovial Fluid Comment TNP 11/21/21 06:10: WBC 12.8 H, RBC 3.26 L, Hgb 7.8 L, Hct 25.9 L, MCV 79.3 L, MCH 23.9 L, MCHC 30.2 L, RDW 18.6 H, Plt Count 349, MPV 9.4, Neut % (Auto) 91.5 H, Lymph % (Auto) 3.7 L, [place] % (Auto) 4.2, Eos % (Auto) 0.4, Baso % (Auto) 0.3, Neut # (Auto) 11.7 H, Lymph # (Auto) 0.5 L, [place] # (Auto) 0.5, Eos # (Auto) 0.1, Baso # (Auto) 0.0, Total Counted 100, Neutrophils % (Manual) 93 H, Lymphocytes % (Manual) 3 L, Monocytes % (Manual) 4, Platelet Estimate Normal, Hypochromasia 1+, Anisocytosis 1+, Microcytosis 1+ 11/21/21 06:10: Sodium 130 L, Potassium 4.0, Chloride 104, Carbon Dioxide 14 L, Anion Gap 16.0 H, BUN 90 H, Creatinine 3.00 H, Estimated Creat Clear 33, Estimated GFR 21 L, Est GFR ( Amer) 25 L, Glucose 92, Calcium 5.7 L 11/21/21 09:27: Vancomycin Trough 21.5 H Medical History: Reports:: Congestive Heart Failure, Chronic Obstructive Pulmonary Disease (COPD), Coronary Artery Disease, Hyperlipidemia, Hypertension, Internal Pacemaker, MRSA Denies:: Cancer, Diabetes Mellitus Type 1, Diabetes Mellitus Type 2, Seizures Assessment and Plan (1) Perianal abscess Status: Acute Category: Medical Code(s): K61.0 - Anal abscess (2) Edema of scrotum Status: Acute Category: Medical Code(s): N50.89 - Other specified disorders of the male genital organs (3) Chest wall pain, chronic Status: Acute Category: Medical Code(s): R07.89 - Other chest pain; G89.29 - Other chronic pain (4) Dependence on supplemental oxygen Status: Acute Category: Medical Code(s): Z99.81 - Dependence on supplemental oxygen (5) Dyspnea Status: Acute Qualifiers: Dyspnea type: shortness of breath Qualified Code(s): R06.02 - Shortness of breath; R06.00 -
--- NOTE | 2021-11-21 13:56 | PC.NURSE ---
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 Increased confusion and has started to say inappropriate things to nursing. He has +3 edema to LUE and LLE. has increased anxiety and restless @ times.
--- NOTE | 2021-11-21 16:46 | P.PN_ITS ---
Subjective Narrative: Mr. Johnston is a 71-year-old male with history of perirectal abscess. Reports continued pain. Less drainage. Overall, no new complaints. Progress Note: A&P (1) Perianal abscess Status: Acute (2) Edema of scrotum Status: Acute (3) Chest wall pain, chronic Status: Acute (4) Dependence on supplemental oxygen Status: Acute (5) Dyspnea Status: Acute (6) Heart failure, unspecified Status: Acute (7) History of COVID-19 Status: Acute (8) MRSA infection Status: Acute (9) CHF (congestive heart failure) Status: Chronic (10) Coronary artery disease Status: Chronic (11) HTN (hypertension) Status: Chronic (12) History of cardiac pacemaker in situ Status: Chronic (13) NYHA class 2 heart failure with reduced ejection fraction Status: Chronic (14) SOB (shortness of breath) Status: Chronic (15) Renal abscess Status: Acute (16) Renal failure Status: Chronic (17) Acute on chronic renal insufficiency Status: Acute (18) E coli infection Status: Acute (19) Klebsiella pneumoniae infection Status: Acute (20) Gout attack Status: Acute (21) Effusion of knee joint, left Status: Acute Assessment and Plan for All Diagnoses:: 1. History of rectal abscess. Status post incision and drainage. Continue local wound care. May need further debridement. Exam Vital signs and Labs for Last 24 Hours: Temp Pulse Resp BP Pulse Ox 97.7 F 60 26 H 125/65 93 L 11/21/21 12:00 11/21/21 12:00 11/21/21 12:00 11/21/21 12:00 11/21/21 12:00 Laboratory Results - last 24 hr 11/21/21 06:10: WBC 12.8 H, RBC 3.26 L, Hgb 7.8 L, Hct 25.9 L, MCV 79.3 L, MCH 23.9 L, MCHC 30.2 L, RDW 18.6 H, Plt Count 349, MPV 9.4, Neut % (Auto) 91.5 H, Lymph % (Auto) 3.7 L, [place] % (Auto) 4.2, Eos % (Auto) 0.4, Baso % (Auto) 0.3, Neut # (Auto) 11.7 H, Lymph # (Auto) 0.5 L, [place] # (Auto) 0.5, Eos # (Auto) 0.1, Baso # (Auto) 0.0, Total Counted 100, Neutrophils % (Manual) 93 H, Lymphocytes % (Manual) 3 L, Monocytes % (Manual) 4, Platelet Estimate Normal, Hypochromasia 1+, Anisocytosis 1+, Microcytosis 1+ 11/21/21 06:10: Sodium 130 L, Potassium 4.0, Chloride 104, Carbon Dioxide 14 L, Anion Gap 16.0 H, BUN 90 H, Creatinine 3.00 H, Estimated Creat Clear 33, Estimated GFR 21 L, Est GFR ( Amer) 25 L, Glucose 92, Calcium 5.7 L 11/21/21 09:27: Vancomycin Trough 21.5 H I & O for Last 24 hours: Intake & Output 11/19/21 11/20/21 11/21/21 11/22/21 11:59 11:59 11:59 11:59 Intake Total 960 / 960 360 / 360 1690 / 1690 120 / 120 Output Total 420 / 420 320 / 320 675 / 675 Balance 540 / 540 40 / 40 1015 / 1015 120 / 120 Weight 98.827 kg 101.242 kg 102.33 kg Microbiology Reports for the Last 24 Hours: Microbiology 11/18/21 19:00 Synovial Fluid Gram Stain - Final 11/18/21 19:00 Synovial Fluid Body Fluid Culture - Preliminary Gram Positive Cocci - *Routine Exam Comments: Perianal skin with open wound. Fibrinous exudate. Scant drainage. Scrotal swelling noted.
[2021-11-21 17:45] LABS: Ammonia < 9 umol/L (9-30)
[2021-11-21 17:55] LABS: ABG Base Excess -14.3 mmol/L (-2.4-2.3); ABG HCO3 12.9 mmhg (22.0-26.0); ABG Oxygen Saturation 95 % (90-100); ABG PCO2 29.9 mmhg (35.0-45.0); ABG PH 7.25 mmol/L (7.35-7.45); ABG PO2 85.3 mmhg (80-100); ABG TCO2 13.8 mmhg (23-27)
[2021-11-21 17:56] LABS: Allen's Test y; Oxygen 3 %
--- NOTE | 2021-11-21 18:46 | PC.NURSE ---
spoke with MD regarding pt status. New orders received.
[2021-11-21 22:21] LABS: Vancomycin,Trough 20.3 ug/mL (5.0-10.0)
[2021-11-22] VITALS (11 sets, daily range): BP systolic 128–168; BP diastolic 56–96; PULSE 53–68; RESP 16–24; TEMP 36.4–36.6; O2SAT 92–99; BMI 31.6
--- NOTE | 2021-11-22 06:32 | PC.NURSE ---
Pt has c/o pain in hips and left knee 2x t/o shift. Administered PRN pain medication per MAR, pt states favorable results. Pt called this RN into room around 0500 stating I cannot breathe. Pt o2 sat 100% on 3 L nc. Pt encouraged to take slow deep breaths and was repositioned in bed. Pt continued to say he could not breathe. Lorazepam administered per OCT, pt now states he is comfortable. Pt received full bath and linen change. Scrotum and bottom cleaned, ulceration packed, and area was redressed. SEE WOUND NOTE. Call peguero within reach.
--- NOTE | 2021-11-22 08:27 | HMH.ACPN2 ---
Internal Medicine - PN: Subj *Date: 11/22/21 *Time: 08:27 Interval history: pt report feels weak but no other c/o - has anemia with renal failure and positive staph aureus in synovial fluid Exam Vital signs and Labs for Last 24 Hours: Temp Pulse Resp BP Pulse Ox 97.6 F 60 18 154/77 H 96 11/22/21 04:00 11/22/21 06:17 11/22/21 04:00 11/22/21 04:00 11/22/21 06:17 Laboratory Results - last 24 hr 11/21/21 09:27: Vancomycin Trough 21.5 H 11/21/21 17:04: Specimen Source r/r, O2 % 3, ABG pH 7.25 L, ABG pCO2 29.9 L, ABG pO2 85.3, ABG HCO3 12.9 L, ABG Total CO2 13.8 L, ABG O2 Saturation 95, ABG Base Excess -14.3 L, Harpal Test y 11/21/21 17:26: Ammonia < 9 L 11/21/21 21:20: Vancomycin Trough 20.3 H I & O for Last 24 hours: Intake & Output 11/19/21 11/20/21 11/21/21 11/22/21 11:59 11:59 11:59 11:59 Intake Total 960 / 960 360 / 360 1690 / 1690 1427 / 1427 Output Total 420 / 420 320 / 320 675 / 675 745 / 745 Balance 540 / 540 40 / 40 1015 / 1015 682 / 682 Weight 217 lb 14.02 oz 223 lb 3.2 oz 225 lb 9.6 oz 226 lb 3.2 oz Microbiology Reports for the Last 24 Hours: Microbiology 11/18/21 19:00 Synovial Fluid Gram Stain - Final 11/18/21 19:00 Synovial Fluid Body Fluid Culture - Final Staphylococcus aureus - Constitutional no acute distress, obese - *Routine HEENT Exam Head: Present: normocephalic Eye: Present: EOMI, PERRL ENT: Present: mucous membranes dry - *Routine Neck Exam Absent: JVD - *Routine Respiratory Exam Present: decreased breath sounds - *Routine Cardiovascular Exam Present: RRR, murmur, S4 - *Routine Abdominal Exam Present: soft - *Routine Extremities Exam Present: edema. Absent: calf tenderness Comments: lt knee with effusion - *Routine Skin Exam Absent: rash - *Routine Neurological Exam Present: alert, CN II-XII intact - Routine Psychiatric Exam Present: cooperative Assessment and Plan (1) Perianal abscess Status: Acute Category: Medical Code(s): K61.0 - Anal abscess (2) Edema of scrotum Status: Acute Category: Medical Code(s): N50.89 - Other specified disorders of the male genital organs (3) Chest wall pain, chronic Status: Acute Category: Medical Code(s): R07.89 - Other chest pain; G89.29 - Other chronic pain (4) Dependence on supplemental oxygen Status: Acute Category: Medical Code(s): Z99.81 - Dependence on supplemental oxygen (5) Dyspnea Status: Acute Qualifiers: Dyspnea type: shortness of breath Qualified Code(s): R06.02 - Shortness of breath; R06.00 - Dyspnea, unspecified; R06.01 - Orthopnea Category: Medical Code(s): R06.00 - Dyspnea, unspecified (6) Heart failure, unspecified Status: Acute Category: Medical Code(s): I50.9 - Heart failure, unspecified (7) History of COVID-19 Status: Acute Category: Medical Code(s): Z86.16 - Personal history of COVID-19 (8) MRSA infection Status: Acute Category: Medical Code(s): A49.02 - Methicillin resistant Staphylococcus aureus infection, unspecified site (9) CHF (congestive heart failure) Status: Chronic Qualifiers: Heart failure type: unspecified Heart failure chronicity: chronic Qualified Code(s): I50.9 - Heart failure, unspecified Category: Medical Code(s): I50.9 - Heart failure, unspecified (10) Coronary artery disease Status: Chronic Qualifiers: Coronary Disease-Associated Artery/Lesion type: [place] artery [place] vs. transplanted heart: [place] heart Associated angina: without angina Qualified Code(s): I25.10 - Atherosclerotic heart disease of [place] coronary artery without angina pectoris Category: Medical Code(s): I25.10 - Atherosclerotic heart disease of [place] coronary artery without angina pectoris (11) HTN (hypertension) Status: Chronic Qualifiers: Hypertension type: essential hypertension Category: Medical Code(s): I10 - Essential (p
[2021-11-22 08:43] LABS: MANUAL DIFFERENTIAL MANUAL DIFFERENTIAL (MANUAL DIFF)
[2021-11-22 08:49] LABS: Basophils # 0.1 K/mm3 (0-0.2); Basophils % 0.3 % (0.1-2.0); Chloride 107 mmol/L (98-107); Eosinophils # 0.1 K/mm3 (0.0-0.4); Eosinophils % 0.5 % (0.1-12.0); Hematocrit 25.6 % (42.0-52.0); Hemoglobin 7.9 g/dL (14.1-18.0); Lymphocytes # 0.5 K/mm3 (0.7-4.5); Lymphocytes % 3.3 % (10-50); Mean Corpuscular HGB Conc 30.8 g/dL (31.8-35.4); Mean Corpuscular Hemoglobin 24.5 pg (27.0-31.2); Mean Corpuscular Volume 79.5 fl (80-94); Mean Platelet Volume 9.5 fl (7.4-10.4); Monocytes # 0.5 K/mm3 (0.1-1.0); Monocytes % 3.3 % (1.7-9.3); Neutrophils % 92.6 % (37.0-80.0); Platelet Count 383 K/mm3 (142-424); Red Blood Count 3.22 M/mm3 (4.60-6.20); Red Cell Distribution Width 18.7 % (11.5-17.5); Sodium 131 mmol/L (136-145); White Blood Count 15.1 K/mm3 (4.8-10.8)
[2021-11-22 08:53] LABS: Carbon Dioxide 13 mmol/L (22.0-30.0); Creatinine Clearance Estimated 35 mL/min (50-200); Estimated Glomerular Filt Rate 22 ml/min (>60); GFR (African American) 27 ML/MIN (>60); Glucose 109 mg/dl (74-100)
[2021-11-22 09:01] LABS: Blood Urea Nitrogen 87 mg/dl (9-20)
--- NOTE | 2021-11-22 09:02 | HMH.ACPN2 ---
Internal Medicine - PN: Subj *Date: 11/22/21 *Time: 09:02 Interval history: Internal medicine cross cover note: I was asked to see patient yesterday afternoon by nursing staff because of mental status changes and some confusion. Yesterday I ordered ammonia levels, repeat BMP and a fluid bolus based on the patient's uremia with elevated BUN out of proportion to elevated creatinine from his baseline. This helped somewhat. Nursing staff concerned this morning because his wound on his scrotum is now split open to involve part of the perineum and it is draining green foul-smelling drainage. The patient's oxygenation status remains acceptable with O2 saturations 96% on 2 L. He remains afflicted with some edema of the hands and the arms. Exam Vital signs and Labs for Last 24 Hours: Temp Pulse Resp BP Pulse Ox 97.6 F 60 18 154/77 H 96 11/22/21 04:00 11/22/21 06:17 11/22/21 04:00 11/22/21 04:00 11/22/21 06:17 Laboratory Results - last 24 hr 11/21/21 09:27: Vancomycin Trough 21.5 H 11/21/21 17:04: Specimen Source r/r, O2 % 3, ABG pH 7.25 L, ABG pCO2 29.9 L, ABG pO2 85.3, ABG HCO3 12.9 L, ABG Total CO2 13.8 L, ABG O2 Saturation 95, ABG Base Excess -14.3 L, [place] Test y 11/21/21 17:26: Ammonia < 9 L 11/21/21 21:20: Vancomycin Trough 20.3 H 11/22/21 08:35: WBC 15.1 H, RBC 3.22 L, Hgb 7.9 L, Hct 25.6 L, MCV 79.5 L, MCH 24.5 L, MCHC 30.8 L, RDW 18.7 H, Plt Count 383, MPV 9.5, Neut % (Auto) 92.6 H, Lymph % (Auto) 3.3 L, [place] % (Auto) 3.3, Eos % (Auto) 0.5, Baso % (Auto) 0.3, Neut # (Auto) 14.0 H, Lymph # (Auto) 0.5 L, [place] # (Auto) 0.5, Eos # (Auto) 0.1, Baso # (Auto) 0.1 11/22/21 08:35: Sodium 131 L, Potassium 4.0, Chloride 107, Carbon Dioxide 13 L, Anion Gap 15.0, BUN 87 H, Creatinine 2.80 H, Estimated Creat Clear 35, Estimated GFR 22 L, Est GFR ( Amer) 27 L, Glucose 109 H, Calcium 6.0 L I & O for Last 24 hours: Intake & Output 11/19/21 11/20/21 11/21/21 11/22/21 11:59 11:59 11:59 11:59 Intake Total 960 / 960 360 / 360 1690 / 1690 1427 / 1427 Output Total 420 / 420 320 / 320 675 / 675 745 / 745 Balance 540 / 540 40 / 40 1015 / 1015 682 / 682 Weight 217 lb 14.02 oz 223 lb 3.2 oz 225 lb 9.6 oz 226 lb 3.2 oz Microbiology Reports for the Last 24 Hours: Microbiology 11/18/21 19:00 Synovial Fluid Gram Stain - Final 11/18/21 19:00 Synovial Fluid Body Fluid Culture - Final Staphylococcus aureus Narrative: Patient's pleasant, slightly disoriented but little better than yesterday when I saw him. Lungs have good air movement. They are clear. Heart rate regular. Edema in the forearm on the left arm. 1+ in the legs. Wound as noted per nursing staff pictures. Lots of foul-smelling drainage. Assessment and Plan (1) Perianal abscess Status: Acute Category: Medical Code(s): K61.0 - Anal abscess (2) Edema of scrotum Status: Acute Category: Medical Code(s): N50.89 - Other specified disorders of the male genital organs (3) Chest wall pain, chronic Status: Acute Category: Medical Code(s): R07.89 - Other chest pain; G89.29 - Other chronic pain (4) Dependence on supplemental oxygen Status: Acute Category: Medical Code(s): Z99.81 - Dependence on supplemental oxygen (5) Dyspnea Status: Acute Qualifiers: Dyspnea type: shortness of breath Qualified Code(s): R06.02 - Shortness of breath; R06.00 - Dyspnea, unspecified; R06.01 - Orthopnea Category: Medical Code(s): R06.00 - Dyspnea, unspecified (6) Heart failure, unspecified Status: Acute Category: Medical Code(s): I50.9 - Heart failure, unspecified (7) History of COVID-19 Status: Acute Category: Medical Code(s): Z86.16 - Personal history of COVID-19 (8) MRSA infection Status: Acute Category: Medical Code(s): A49.02 - Methicillin resistant Staphylococcus aureus infection, unspecified site (9) CHF (congestive heart failure) Status: Chronic Qualifiers:
[2021-11-22 09:56] LABS: Hypochromasia 2+; Lymphocytes % 4 % (10-50); Microcytosis 1+; Monocytes % 2 % (2-9); Neutrophils % 93 % (42-76); Platelet Estimate Normal; Total Cells Counted 100
[2021-11-22 09:58] LABS: Anisocytosis 1+; Poikilocytosis 1+
--- NOTE | 2021-11-22 17:45 | HMH.GSPN ---
Subjective Narrative: Mr. Johnston is a 71-year-old male with history of perirectal abscess. Altered mental status work-up noted. Feels somewhat better. Less drainage. Sitting at bedside. Progress Note: A&P (1) Perianal abscess Status: Acute (2) Edema of scrotum Status: Acute (3) Chest wall pain, chronic Status: Acute (4) Dependence on supplemental oxygen Status: Acute (5) Dyspnea Status: Acute (6) Heart failure, unspecified Status: Acute (7) History of COVID-19 Status: Acute (8) MRSA infection Status: Acute (9) CHF (congestive heart failure) Status: Chronic (10) Coronary artery disease Status: Chronic (11) HTN (hypertension) Status: Chronic (12) History of cardiac pacemaker in situ Status: Chronic (13) NYHA class 2 heart failure with reduced ejection fraction Status: Chronic (14) SOB (shortness of breath) Status: Chronic (15) Renal abscess Status: Acute (16) Renal failure Status: Chronic (17) Acute on chronic renal insufficiency Status: Acute (18) E coli infection Status: Acute (19) Klebsiella pneumoniae infection Status: Acute (20) Gout attack Status: Acute (21) Effusion of knee joint, left Status: Acute (22) Staph aureus infection Status: Acute Exam Vital signs and Labs for Last 24 Hours: Temp Pulse Resp BP Pulse Ox 97.9 F 64 24 128/76 92 L 11/22/21 08:00 11/22/21 13:22 11/22/21 08:00 11/22/21 08:00 11/22/21 08:00 Laboratory Results - last 24 hr 11/21/21 17:04: Specimen Source r/r, O2 % 3, ABG pH 7.25 L, ABG pCO2 29.9 L, ABG pO2 85.3, ABG HCO3 12.9 L, ABG Total CO2 13.8 L, ABG O2 Saturation 95, ABG Base Excess -14.3 L, Har[place] Test y 11/21/21 17:26: Ammonia < 9 L 11/21/21 21:20: Vancomycin Trough 20.3 H 11/22/21 08:35: WBC 15.1 H, RBC 3.22 L, Hgb 7.9 L, Hct 25.6 L, MCV 79.5 L, MCH 24.5 L, MCHC 30.8 L, RDW 18.7 H, Plt Count 383, MPV 9.5, Neut % (Auto) 92.6 H, Lymph % (Auto) 3.3 L, [place] % (Auto) 3.3, Eos % (Auto) 0.5, Baso % (Auto) 0.3, Neut # (Auto) 14.0 H, Lymph # (Auto) 0.5 L, [place] # (Auto) 0.5, Eos # (Auto) 0.1, Baso # (Auto) 0.1, Total Counted 100, Neutrophils % (Manual) 93 H, Band Neutrophils % 1.0, Lymphocytes % (Manual) 4 L, Monocytes % (Manual) 2, Platelet Estimate Normal, Hypochromasia 2+, Poikilocytosis 1+, Anisocytosis 1+, Microcytosis 1+ 11/22/21 08:35: Sodium 131 L, Potassium 4.0, Chloride 107, Carbon Dioxide 13 L, Anion Gap 15.0, BUN 87 H, Creatinine 2.80 H, Estimated Creat Clear 35, Estimated GFR 22 L, Est GFR ( Amer) 27 L, Glucose 109 H, Calcium 6.0 L I & O for Last 24 hours: Intake & Output 11/20/21 11/21/21 11/22/21 11/23/21 11:59 11:59 11:59 11:59 Intake Total 360 / 360 1690 / 1690 1427 / 1427 Output Total 320 / 320 675 / 675 745 / 745 200 / 200 Balance 40 / 40 1015 / 1015 682 / 682 -200 / -200 Weight 101.242 kg 102.33 kg 102.603 kg Microbiology Reports for the Last 24 Hours: Microbiology 11/18/21 19:00 Synovial Fluid Gram Stain - Final 11/18/21 19:00 Synovial Fluid Body Fluid Culture - Final Staphylococcus aureus - *Routine Exam Comments: Perirectal abscess. Continue dressing changes for open perineal wounds. No further debridement needed at this time.
[2021-11-23] VITALS (18 sets, daily range): BP systolic 121–158; BP diastolic 62–99; PULSE 58–66; RESP 14–18; TEMP 36.4–36.7; O2SAT 97–100; BMI 31.4
--- NOTE | 2021-11-23 04:13 | PC.NURSE ---
No acute changes. Pt tolerating 1 L nc well with sats in upper 90s. Pt has c/o pain 1x thus far, medicated per oct, pt states favorable results. Perineum and scrotum cleaned, packed, and redressed. Call light within reach.
[2021-11-23 06:26] LABS: MANUAL DIFFERENTIAL MANUAL DIFFERENTIAL (MANUAL DIFF)
[2021-11-23 06:28] LABS: Basophils % 0.2 % (0.1-2.0); Eosinophils # 0.1 K/mm3 (0.0-0.4); Eosinophils % 0.7 % (0.1-12.0); Hemoglobin 7.5 g/dL (14.1-18.0); Lymphocytes # 0.5 K/mm3 (0.7-4.5); Lymphocytes % 3.5 % (10-50); Mean Corpuscular HGB Conc 30.4 g/dL (31.8-35.4); Mean Corpuscular Hemoglobin 24.4 pg (27.0-31.2); Mean Corpuscular Volume 80.1 fl (80-94); Mean Platelet Volume 9.5 fl (7.4-10.4); Monocytes # 0.6 K/mm3 (0.1-1.0); Monocytes % 3.9 % (1.7-9.3); Neutrophils # 12.9 K/mm3 (1.8-7.8); Neutrophils % 91.6 % (37.0-80.0); Platelet Count 353 K/mm3 (142-424); Red Cell Distribution Width 19.1 % (11.5-17.5); White Blood Count 14.1 K/mm3 (4.8-10.8)
[2021-11-23 06:30] LABS: Hematocrit 24.8 % (42.0-52.0)
[2021-11-23 06:36] LABS: Chloride 110 mmol/L (98-107)
[2021-11-23 06:37] LABS: Potassium 3.5 mmoL/L (3.5-5.1); Sodium 135 mmol/L (136-145)
[2021-11-23 06:39] LABS: Creatinine Clearance Estimated 34 mL/min (50-200); Estimated Glomerular Filt Rate 22 ml/min (>60); GFR (African American) 26 ML/MIN (>60)
[2021-11-23 06:40] LABS: Anion Gap 14.5 mEq/L (5-15); Carbon Dioxide 14 mmol/L (22.0-30.0); Glucose 102 mg/dl (74-100)
[2021-11-23 06:41] LABS: Anisocytosis 2+; Lymphocytes % 4 % (10-50); Monocytes % 2 % (2-9); Neutrophils % 89 % (42-76); Platelet Estimate Normal; Total Cells Counted 100
[2021-11-23 06:42] LABS: Hypochromasia 1+; Microcytosis 2+; Poikilocytosis 2+; Rouleaux 1+
[2021-11-23 06:58] LABS: Blood Urea Nitrogen 82 mg/dl (9-20)
--- NOTE | 2021-11-23 09:24 | HMH.ACPN2 ---
Internal Medicine - PN: Subj *Date: 11/23/21 *Time: 08:30 Interval history: pt laying in bed, states increase soa Exam Vital signs and Labs for Last 24 Hours: Temp Pulse Resp BP Pulse Ox 98.1 F 60 17 148/70 H 100 11/23/21 08:00 11/23/21 08:00 11/23/21 08:00 11/23/21 08:00 11/23/21 08:00 Laboratory Results - last 24 hr 11/22/21 08:35: Total Counted 100, Neutrophils % (Manual) 93 H, Band Neutrophils % 1.0, Lymphocytes % (Manual) 4 L, Monocytes % (Manual) 2, Platelet Estimate Normal, Hypochromasia 2+, Poikilocytosis 1+, Anisocytosis 1+, Microcytosis 1+ 11/23/21 06:11: WBC 14.1 H, RBC 3.10 L, Hgb 7.5 L, Hct 24.8 L, MCV 80.1, MCH 24.4 L, MCHC 30.4 L, RDW 19.1 H, Plt Count 353, MPV 9.5, Neut % (Auto) 91.6 H, Lymph % (Auto) 3.5 L, [place] % (Auto) 3.9, Eos % (Auto) 0.7, Baso % (Auto) 0.2, Neut # (Auto) 12.9 H, Lymph # (Auto) 0.5 L, [place] # (Auto) 0.6, Eos # (Auto) 0.1, Baso # (Auto) 0.0, Total Counted 100, Neutrophils % (Manual) 89 H, Band Neutrophils % 5.0, Lymphocytes % (Manual) 4 L, Monocytes % (Manual) 2, Platelet Estimate Normal, Hypochromasia 1+, Poikilocytosis 2+, Anisocytosis 2+, Microcytosis 2+, [place] 1+ 11/23/21 06:11: Sodium 135 L, Potassium 3.5, Chloride 110 H, Carbon Dioxide 14 L, Anion Gap 14.5, BUN 82 H, Creatinine 2.90 H, Estimated Creat Clear 34, Estimated GFR 22 L, Est GFR ( Amer) 26 L, Glucose 102 H, Calcium 6.0 L I & O for Last 24 hours: Intake & Output 04/15/11/21/21 11/22/21 11/23/21 11:59 11:59 11:59 11:59 Intake Total 360 / 360 1690 / 1690 1547 / 1547 1462 / 1462 Output Total 320 / 320 675 / 675 745 / 745 1150 / 1150 Balance 40 / 40 1015 / 1015 802 / 802 312 / 312 Weight 223 lb 3.2 oz 225 lb 9.6 oz 226 lb 3.2 oz 224 lb 8 oz Microbiology Reports for the Last 24 Hours: Microbiology 11/18/21 19:00 Synovial Fluid Gram Stain - Final 11/18/21 19:00 Synovial Fluid Body Fluid Culture - Final Staphylococcus aureus - Constitutional no acute distress - *Routine HEENT Exam Head: Present: normocephalic Eye: Present: PERRL ENT: Present: mucous membranes moist - *Routine Neck Exam Present: supple. Absent: lymphadenopathy - *Routine Respiratory Exam Present: crackles - *Routine Cardiovascular Exam Present: RRR - *Routine Abdominal Exam Present: soft, normoactive bowel sounds. Absent: tenderness - *Routine Extremities Exam Present: edema. Absent: cyanosis, clubbing Comments: 2+ edema in all ext and abd - *Routine Skin Exam Present: warm, wounds. Absent: rash Comments: wound to scrotum has open draining foul smelling wounds scattered, packing in place to [place] area - *Routine Neurological Exam Present: alert, oriented X3 Assessment and Plan (1) Perianal abscess Status: Acute Category: Medical Code(s): K61.0 - Anal abscess (2) Edema of scrotum Status: Acute Category: Medical Code(s): N50.89 - Other specified disorders of the male genital organs (3) Chest wall pain, chronic Status: Acute Category: Medical Code(s): R07.89 - Other chest pain; G89.29 - Other chronic pain (4) Dependence on supplemental oxygen Status: Acute Category: Medical Code(s): Z99.81 - Dependence on supplemental oxygen (5) Dyspnea Status: Acute Qualifiers: Dyspnea type: shortness of breath Qualified Code(s): R06.02 - Shortness of breath; R06.00 - Dyspnea, unspecified; R06.01 - Orthopnea Category: Medical Code(s): R06.00 - Dyspnea, unspecified (6) Heart failure, unspecified Status: Acute Category: Medical Code(s): I50.9 - Heart failure, unspecified (7) History of COVID-19 Status: Acute Category: Medical Code(s): Z86.16 - Personal history of COVID-19 (8) MRSA infection Status: Acute Category: Medical Code(s): A49.02 - Methicillin resistant Staphylococcus aureus infection, unspecified site (9) CHF (congestive heart failure) Status: Chronic Qualifiers: Heart failure typ
--- NOTE | 2021-11-23 10:38 | HMH.ORTHPN ---
Subjective Date: 11/23/21 <Lillian Arreaga - 11/23/21 10:41> Time: 09:45 <Lillian Arreaga 11/23/21 10:41> Principal diagnosis: left knee swelling, pain <Lillian Arreaga 11/23/21 10:41> Interval history: Patient is a 71-year-old male admitted to the acute inpatient service, being followed by orthopedic services in regards to his left knee pain/swelling. This morning the patient is lying in bed. He continues to report some pain in his left knee but states that it is well controlled with pain medication. He reports that the knee is feeling better compared to last week, he is more concerned today about his shortness of breath. He denies fevers, chills, rigors, or distal tingling/numbness. He denies any other symptoms or concerns at this time. <Lillian Arreaga - 11/23/21 10:51> PN: Obj Ex Vital signs: Temp Pulse Resp BP Pulse Ox 97.8 F 60 17 145/78 H 100 11/23/21 13:42 11/23/21 13:42 11/23/21 13:42 11/23/21 12:00 11/23/21 13:42 <HuberOrlando Jennings - 11/23/21 18:18> Temp Pulse Resp BP Pulse Ox 98.1 F 60 17 148/70 H 100 11/23/21 08:00 11/23/21 08:00 11/23/21 08:00 11/23/21 08:00 11/23/21 08:00 <Lillian Arreaga 11/23/21 10:41> - Constitutional no acute distress, chronically ill appearing, cooperative <Lillian Arreaga 11/23/21 10:53> - Routine HEENT Exam Head: Present: normocephalic, atraumatic <Lillian Arreaga 11/23/21 10:53> Eye: Present: EOMI, PERRL <Lillian Arreaga 11/23/21 10:53> ENT: Present: mucous membranes moist <Lillian Arreaga 11/23/21 10:53> - Routine Neck Exam Present: supple, full ROM, trachea midline. Absent: JVD, lymphadenopathy <Lillian Arreaga 11/23/21 10:53> - Routine Respiratory Exam Absent: accessory muscle use, respiratory distress <Lillian Arreaga 11/23/21 10:53> - Routine Cardiovascular Exam Present: RRR <Lillian Arreaga 11/23/21 10:53> - Routine Abdominal Exam Present: soft. Absent: tenderness <Lillian Arreaga 11/23/21 10:53> - Routine Extremities Exam Comments: Upon examination the lower extremities: The limb lengths are equal. Upon examination of the left knee, the skin is intact. No erythema, induration, purulent drainage, bleeding, or other signs of infection noted. Bilateral lower extremity edema noted. Knee range of motion is 5-120 degrees of flexion. Terminal flexion is painful. Knee joint is ligamentously stable. Thigh and calf are soft nontender; Homans' sign is negative. No clinical evidence of DVT noted. Posterior tibial pulse 1+; capillary refill is brisk. Sensation to light touch is grossly intact throughout. Patient is active mobilizing the ankle, foot, and toes. <Lillian Arreaga 11/23/21 10:53> - Routine Skin Exam Present: intact, warm. Absent: cyanosis, erythema, lesions, jaundice <Lillian Arreaga 11/23/21 10:53> - Routine Neurological Exam Present: alert, oriented X3, moving all extremities, normal tone, normal speech. Absent: sensory deficit, motor deficit, altered mental status <Lillian Arreaga 11/23/21 10:53> - Routine Psychiatric Exam Present: normal affect, cooperative <Lillian Arreaga 11/23/21 10:53> Progress Note: A&P (1) Perianal abscess Status: Acute (2) Edema of scrotum Status: Acute (3) Chest wall pain, chronic Status: Chronic (4) Dependence on supplemental oxygen Status: Chronic (5) Dyspnea Status: Chronic (6) Heart failure, unspecified Status: Chronic (7) History of COVID-19 Status: Chronic (8) MRSA infection Status: Acute (9) CHF (congestive heart failure) Status: Chronic (10) Coronary artery disease Status: Chronic (11) HTN (hypertension) Status: Chronic (12) History of cardiac pacemaker in situ Status: Chronic (13) NYHA class 2 heart failure with reduced ejection fraction Status: Chronic (14) SOB (shortness of breath) Status: Chronic (15) Renal abscess Status: Acute (16)
--- NOTE | 2021-11-23 11:31 | HMH.PNCARD ---
Subjective Date: 11/23/21 Time: 11:00 Principal diagnosis: left knee swelling, pain Interval history: This is a 71-year-old gentleman who had a perirectal/perianal abscess status post I&D on antibiotics. He also had scrotal swelling. The patient was being treated for this and due to the IV fluids given to him it appears that he is in a acute exacerbation of congestive heart failure. He is complaining of shortness of breath today. He states that he is short of breath at rest and even when he is just talking. He states that this continues to worsen. It is associated with edema all over his body. He states his legs feel significantly swollen. He denies any fever, chills, nausea, vomiting, diarrhea. His shortness of breath is associated with orthopnea. He continues to have scrotal edema with a foul odor as well as the perirectal/perianal abscess. He also has synovial fluid from his knee that is positive for staph aureus. He continues to get antibiotic treatments. Exam Vital signs and Labs for Last 24 Hours: Temp Pulse Resp BP Pulse Ox 98.1 F 65 17 148/70 H 100 11/23/21 08:00 11/23/21 11:09 11/23/21 08:00 11/23/21 08:00 11/23/21 08:00 Laboratory Results - last 24 hr 11/23/21 06:11: WBC 14.1 H, RBC 3.10 L, Hgb 7.5 L, Hct 24.8 L, MCV 80.1, MCH 24.4 L, MCHC 30.4 L, RDW 19.1 H, Plt Count 353, MPV 9.5, Neut % (Auto) 91.6 H, Lymph % (Auto) 3.5 L, [place] % (Auto) 3.9, Eos % (Auto) 0.7, Baso % (Auto) 0.2, Neut # (Auto) 12.9 H, Lymph # (Auto) 0.5 L, [place] # (Auto) 0.6, Eos # (Auto) 0.1, Baso # (Auto) 0.0, Total Counted 100, Neutrophils % (Manual) 89 H, Band Neutrophils % 5.0, Lymphocytes % (Manual) 4 L, Monocytes % (Manual) 2, Platelet Estimate Normal, Hypochromasia 1+, Poikilocytosis 2+, Anisocytosis 2+, Microcytosis 2+, Rouleaux 1+ 11/23/21 06:11: Sodium 135 L, Potassium 3.5, Chloride 110 H, Carbon Dioxide 14 L, Anion Gap 14.5, BUN 82 H, Creatinine 2.90 H, Estimated Creat Clear 34, Estimated GFR 22 L, Est GFR ( Amer) 26 L, Glucose 102 H, Calcium 6.0 L 11/23/21 10:30: Crossmatch (AHG) See Detail I & O for Last 24 hours: Intake & Output 11/20/21 11/21/21 11/22/21 11/23/21 23:59 23:59 23:59 23:59 Intake Total 1450 / 1570 650 / 650 2839 / 2839 Output Total 670 / 720 600 / 750 1220 / 1220 400 / 400 Balance 780 / 850 50 / -100 1619 / 1619 -400 / -400 Weight 223 lb 3.2 oz 225 lb 9.6 oz 226 lb 3.2 oz 224 lb 8 oz Microbiology Reports for the Last 24 Hours: Microbiology 11/18/21 19:00 Synovial Fluid Gram Stain - Final 11/18/21 19:00 Synovial Fluid Body Fluid Culture - Final Staphylococcus aureus - Constitutional no acute distress, obese - *Routine HEENT Exam Head: Present: normocephalic, atraumatic Eye: Present: EOMI, PERRL ENT: Present: mucous membranes moist - *Routine Neck Exam Present: supple, full ROM, normal carotid upstroke. Absent: JVD, carotid bruit, lymphadenopathy - *Routine Respiratory Exam Present: crackles - *Routine Cardiovascular Exam Present: RRR, Normal S1, Normal S2. Absent: murmur - *Routine Abdominal Exam Present: soft, normoactive bowel sounds. Absent: tenderness, distended - *Routine Extremities Exam Present: edema (3+ bilateral lower extremity edema), full ROM, pulses intact, normal capillary refill. Absent: cyanosis, clubbing - *Routine Skin Exam Present: warm. Absent: rash Comments: Significant scrotal edema with foul-smelling odor and perirectal/perianal abscess - *Routine Neurological Exam Present: alert, oriented X3, CN II-XII intact. Absent: sensory deficit, motor deficit Progress Note: A&P (1) CHF (congestive heart failure) Status: Chronic (2) Dyspnea Status: Acute (3) Perianal abscess Status: Acute (4) Edema of scrotum Status: Acute (5) Dependence on supplemental oxygen Status: Acute (6) History of COVID-19 Status: Acute (7) MRSA infection Status: Acute (8) Coronary artery disease
--- NOTE | 2021-11-23 12:28 | PC.NURSE ---
Spoke with wendy from lab blood is ready
--- NOTE | 2021-11-23 13:49 | HMH.GSPN ---
Subjective Narrative: Pt seen in Dr. Partida's absence. No new complaints regarding wound. Progress Note: A&P (1) Perianal abscess Status: Acute (2) Edema of scrotum Status: Acute (3) Chest wall pain, chronic Status: Acute (4) Dependence on supplemental oxygen Status: Acute (5) Dyspnea Status: Acute (6) Heart failure, unspecified Status: Acute (7) History of COVID-19 Status: Acute (8) MRSA infection Status: Acute (9) CHF (congestive heart failure) Status: Chronic (10) Coronary artery disease Status: Chronic (11) HTN (hypertension) Status: Chronic (12) History of cardiac pacemaker in situ Status: Chronic (13) NYHA class 2 heart failure with reduced ejection fraction Status: Chronic (14) SOB (shortness of breath) Status: Chronic (15) Renal abscess Status: Acute (16) Renal failure Status: Chronic (17) Acute on chronic renal insufficiency Status: Acute (18) E coli infection Status: Acute (19) Klebsiella pneumoniae infection Status: Acute (20) Gout attack Status: Acute (21) Effusion of knee joint, left Status: Acute (22) Staph aureus infection Status: Acute Assessment and Plan for All Diagnoses:: Per the nursing report and discussion with admitting service he has shown some definite worsening of soft tissue infection. Given the scenario and potential need for multiple specialty services with need for probable additional debridement including debridement even of the scrotum with potential plastic surgery involvement and need for potential orthopedic involvement as well as the possibility of need for diverting colostomy I feel that he would best be served in a tertiary facility. Discussed with primary team. Arrangements are being made for transfer. Exam Vital signs and Labs for Last 24 Hours: Temp Pulse Resp BP Pulse Ox 97.8 F 60 17 145/78 H 100 11/23/21 13:42 11/23/21 13:42 11/23/21 13:42 11/23/21 12:00 11/23/21 13:42 Laboratory Results - last 24 hr 11/23/21 06:11: WBC 14.1 H, RBC 3.10 L, Hgb 7.5 L, Hct 24.8 L, MCV 80.1, MCH 24.4 L, MCHC 30.4 L, RDW 19.1 H, Plt Count 353, MPV 9.5, Neut % (Auto) 91.6 H, Lymph % (Auto) 3.5 L, [place] % (Auto) 3.9, Eos % (Auto) 0.7, Baso % (Auto) 0.2, Neut # (Auto) 12.9 H, Lymph # (Auto) 0.5 L, [place] # (Auto) 0.6, Eos # (Auto) 0.1, Baso # (Auto) 0.0, Total Counted 100, Neutrophils % (Manual) 89 H, Band Neutrophils % 5.0, Lymphocytes % (Manual) 4 L, Monocytes % (Manual) 2, Platelet Estimate Normal, Hypochromasia 1+, Poikilocytosis 2+, Anisocytosis 2+, Microcytosis 2+, Rouleaux 1+ 11/23/21 06:11: Sodium 135 L, Potassium 3.5, Chloride 110 H, Carbon Dioxide 14 L, Anion Gap 14.5, BUN 82 H, Creatinine 2.90 H, Estimated Creat Clear 34, Estimated GFR 22 L, Est GFR ( Amer) 26 L, Glucose 102 H, Calcium 6.0 L 11/23/21 06:11: Blood Type Confirm O Negative 11/23/21 10:30: Blood Type O Negative, Antibody Screen Negative, Crossmatch (AHG) See Detail I & O for Last 24 hours: Intake & Output 11/21/21 11/22/21 11/23/21 11/24/21 11:59 11:59 11:59 11:59 Intake Total 1690 / 1690 1547 / 1547 1462 / 1462 0 / 0 Output Total 675 / 675 745 / 745 1150 / 1150 Balance 1015 / 1015 802 / 802 312 / 312 0 / 0 Weight 225 lb 9.6 oz 226 lb 3.2 oz 224 lb 8 oz - *Routine Rectal Exam Comments: Patient has perirectal wound. There is tracking anteriorly. There is necrosis of the subcutaneous tissues. Thin brown drainage. There is surrounding erythema and induration. Marked edema of the scrotum with evidence of possible full-thickness necrosis of some of the tissue.
[2021-11-23 14:33] LABS: Coronavirus 19, PCR Not Detected (NotDetected); Influenza A, PCR Not Detected (NotDetected); Influenza B, PCR Not Detected (NotDetected)
--- NOTE | 2021-11-23 16:46 | HMH.CONFU ---
Internal Medicine - PN: Subj *Date: 11/23/21 *Time: 16:46 Interval history: Patient with history of penoscrotal edema and left gluteal abscess has had some worsening changes over the weekend. The perineal region has is broken down and there are some necrotic appearing areas on the posterior aspect of the scrotum. Patient feels well and denies any pain in the perineal or scrotal region. Exam Vital signs and Labs for Last 24 Hours: Temp Pulse Resp BP Pulse Ox 97.8 F 60 17 145/78 H 100 11/23/21 13:42 11/23/21 13:42 11/23/21 13:42 11/23/21 12:00 11/23/21 13:42 Laboratory Results - last 24 hr 11/23/21 06:11: WBC 14.1 H, RBC 3.10 L, Hgb 7.5 L, Hct 24.8 L, MCV 80.1, MCH 24.4 L, MCHC 30.4 L, RDW 19.1 H, Plt Count 353, MPV 9.5, Neut % (Auto) 91.6 H, Lymph % (Auto) 3.5 L, [place] % (Auto) 3.9, Eos % (Auto) 0.7, Baso % (Auto) 0.2, Neut # (Auto) 12.9 H, Lymph # (Auto) 0.5 L, [place] # (Auto) 0.6, Eos # (Auto) 0.1, Baso # (Auto) 0.0, Total Counted 100, Neutrophils % (Manual) 89 H, Band Neutrophils % 5.0, Lymphocytes % (Manual) 4 L, Monocytes % (Manual) 2, Platelet Estimate Normal, Hypochromasia 1+, Poikilocytosis 2+, Anisocytosis 2+, Microcytosis 2+, Rouleaux 1+ 11/23/21 06:11: Sodium 135 L, Potassium 3.5, Chloride 110 H, Carbon Dioxide 14 L, Anion Gap 14.5, BUN 82 H, Creatinine 2.90 H, Estimated Creat Clear 34, Estimated GFR 22 L, Est GFR ( Amer) 26 L, Glucose 102 H, Calcium 6.0 L 11/23/21 06:11: Blood Type Confirm O Negative 11/23/21 10:30: Blood Type O Negative, Antibody Screen Negative, Crossmatch (AHG) See Detail 11/23/21 14:26: SARS-CoV-2 (PCR) Not detected, Influenza A Untype (PCR) Not detected, Influenza Type B (PCR) Not detected I & O for Last 24 hours: Intake & Output 11/20/21 11/21/21 11/22/21 11/23/21 23:59 23:59 23:59 23:59 Intake Total 1450 / 1570 650 / 650 2839 / 2839 0 / 0 Output Total 670 / 720 600 / 750 1220 / 1220 400 / 400 Balance 780 / 850 50 / -100 1619 / 1619 -400 / -400 Weight 101.242 kg 102.33 kg 102.603 kg 101.831 kg - *Routine Respiratory Exam Absent: accessory muscle use - *Routine Cardiovascular Exam Absent: JVD - *Routine Abdominal Exam Present: soft. Absent: tenderness - *Routine Exam Comments: The scrotum is much less tense than last week but still with moderate edema. The skin on the posterior aspect of the scrotum has 4-5 round spots which are all whitish in appearance and skin necrosis is developing. Scrotum is nontender. There is no evidence of the pus or draining wounds. - *Routine Extremities Exam Absent: cyanosis, clubbing, edema - *Routine Skin Exam Present: warm. Absent: rash - *Routine Neurological Exam Present: alert, oriented X3 Assessment and Plan (1) Perianal abscess Status: Acute Category: Medical Code(s): K61.0 - Anal abscess (2) Edema of scrotum Status: Acute Category: Medical Code(s): N50.89 - Other specified disorders of the male genital organs Penoscrotal edema with some developing a necrosis of the skin in the posterior scrotum. Patient also has some wound breakdown of his perineum related to his gluteal abscess. Dr. Kang general surgeon has recommended transfer to for multidisciplinary care. I am in agreement with that. (3) Chest wall pain, chronic Status: Acute Category: Medical Code(s): R07.89 - Other chest pain; G89.29 - Other chronic pain (4) Dependence on supplemental oxygen Status: Acute Category: Medical Code(s): Z99.81 - Dependence on supplemental oxygen (5) Dyspnea Status: Acute Qualifiers: Dyspnea type: shortness of breath Qualified Code(s): R06.02 - Shortness of breath; R06.00 - Dyspnea, unspecified; R06.01 - Orthopnea Category: Medical Code(s): R06.00 - Dyspnea, unspecified (6) Heart failure, unspecified Status: Acute Category: Medical Code(s): I50.9 - Heart failure, unspecified (7) History of COVID-19 Status: Acute Category: Medical Code(s): Z86.16 - Pe
--- NOTE | 2021-11-23 16:58 | HMH.DCTXFX ---
Discharge/Transfer - Discharge Disposition: Xfer Other Condition: Serious - Plan of Care Resident has been informed of condition and prognosis?: Yes Mobility Status: bedridden Goal of treatment:: resolution of infection Rehab Potential: Good (multiple comorbid conditions) I concur with the most recent H & P: Yes Date of most recent H & P: 11/10/21 Certification: I have reviewed and agree with this resident's plan of care. I certify that post-hospital shelter facility services are required to be given on an inpatient basis because of the need for shelter care on a continuing basis for the condition(s) for which he/she is receiving inpatient hospital services prior to admission to [facility] bed. I also certify that the resident meets existing SNF level of care definition.
--- NOTE | 2021-11-23 17:00 | PC.NURSE ---
Spoke with mervat and stated that it was fine that pt only received one unit of blood out of the two that were ordered.
--- NOTE | 2021-11-23 17:03 | HMH.DCSUM ---
General - General Admission date:: 11/11/21 Discharge date: 11/23/21 HPI HPI: Patient is a 71-year-old white male, known to me from the office, who was admitted with Vitas of the left buttocks associated with pain and marked scrotal edema with penile swelling. Patient relays a history of MRSA buttock infection, right-sided, requiring incision and drainage several years ago at [facility] in [place]. Patient relays increasing redness and tenderness at the inferior aspect of the left buttocks over the last 2 days. Was recently associated with marked scrotal and penile edema. Patient was seen in consultation per Dr. James. Patient has a history of congestive heart failure and chronic renal insufficiency. His brain natruretic peptide was markedly elevated. Patient has history of coronary artery disease, stent deployment, and refractory chest wall discomfort. Patient has a history of severe gout with tophus formation. Patient has a history of COPD oxygen dependence Patient has history of Covid pneumonia, quired hospitalization in August of this year. During the course of his stay he developed a DVT in the left upper extremity, for which he was placed on Xarelto. Given patient's presentation, acute changes on physical exam, and constellation of comorbid features I elected to admit him for further treatment, including IV antibiotics, further delineation of his cellulitis, and consultation. Hospital Course Hospital Course: Patient is a very 1-year-old white male admitted to my service on November for a left gluteal abscess involving the perineal soft tissue and possibly encroaching upon the scrotum. Patient was taken to the operating room on November 11 for a limited incision and drainage. He was placed upon IV antibiotic coverage. Cultures taken from the left buttocks grew out a Klebsiella pneumonia, staph aureus, E. coli. Patient was seen in consultation with general surgery and urology. Elevation of the scrotum was undertaken. The surgical wound was followed sequentially and was felt to have worsened over the course of the weekend. application packaging consultant described some perirectal erythema, tracking anteriorly with possible necrosis of the subcu tissues. He also described a thin brown discharge, erythema and induration protruding up on the scrotum with possible necrotic involvement. During his time here the patient also complained about acute pain in his left knee. He has a history of gout with tophus formation. Orthopedics was consulted, the left knee was aspirated and staph aureus grown in the synovial fluid. Patient has longstanding chronic lung disease, is O2 dependent, and experiences marked dyspnea with exertion. Patient has longstanding history of congestive heart failure. Reduced EF is noted. Presence of a pacemaker is noted. He was felt to be manifesting acute on chronic failure while here. Optimizing volume status remained important. EF 40-45 pct on echo Patient has a longstanding history of renal insufficiency. Baseline creatinine was in the to lower twos. Admission creatinine was 3.0, peaked at 3.6 with a coni of 2.8. Renal ultrasound showed no evidence of obstruction, a 3 cm cystic lesion was noted on the right kidney. Pt received rocephin, clinda, vancomycin IV. Pt had history of UE DVT left last year. Xarelto was on board secondarily. Repeat venous duplex showed no dvt. PICC line is in place. Patient will be transferred to [facility] for further treatment. Patient and family are aware of the potential gravity of his situation. Objective Vital signs: Temp Pulse Resp BP Pulse Ox 97.8 F 60 17 145/78 H 100 11/23/21 13:42 11/23/21 13:42 11/23/21 13:42 11/23/21 12:00 11/23/21 13:42 chronically ill appearing, cooperative - *Routine HEENT Exam Head: Present: normocephalic Eye: Present: EOMI, PERRL ENT: Present: mucous membranes moist - *Routine Neck Exam Present: supple - *Ro
--- NOTE | 2021-11-23 17:05 | PC.NURSE ---
sPOKE WITH WILMER FROM [facility]SFER [facility] TO GET BED ASSIGNMENT
--- NOTE | 2021-11-23 17:15 | PC.NURSE ---
Spoke with kristian HARDY to give report at [facility]
--- NOTE | 2021-11-23 17:19 | PC.NURSE ---
Called EMS for transport
== END 2021-11-23 18:09 | disposition short-term general hospital (02) | DRG 347 ==
PROVIDERS: Emergency Medicine; Internal Medicine Adolescent Medicine; Nurse Practitioner Family; Orthopaedic Surgery; Surgery; Admitting Provider Family Medicine; PCP Family Medicine; Visit Provider Family Medicine
PROC: 0D9Q0ZZ Drainage of Anus, Open Approach (ICD-10-PCS; principal; 2021-11-11 07:30)
DX: K61.0 Anal abscess (principal); N15.1 Renal and perinephric abscess; I50.43 Acute on chronic combined systolic (congestive) and diastolic (congestive) heart failure; I13.0 Hypertensive heart and chronic kidney disease with heart failure and stage 1 through stage 4 chronic kidney disease, or unspecified chronic kidney disease; L03.317 Cellulitis of buttock; N17.9 Acute kidney failure, unspecified; I25.10 Atherosclerotic heart disease of native coronary artery without angina pectoris; Z99.81 Dependence on supplemental oxygen; Z86.16 Personal history of COVID-19; N18.9 Chronic kidney disease, unspecified; N50.89 Other specified disorders of the male genital organs; M1A.9XX1 Chronic gout, unspecified, with tophus (tophi); Z95.5 Presence of coronary angioplasty implant and graft; E78.5 Hyperlipidemia, unspecified; Z20.822 Contact with and (suspected) exposure to COVID-19; R07.89 Other chest pain; N48.89 Other specified disorders of penis; G89.29 Other chronic pain; Z86.14 Personal history of Methicillin resistant Staphylococcus aureus infection; Z86.718 Personal history of other venous thrombosis and embolism; Z95.0 Presence of cardiac pacemaker; D50.9 Iron deficiency anemia, unspecified; I48.0 Paroxysmal atrial fibrillation; B96.1 Klebsiella pneumoniae [K. pneumoniae] as the cause of diseases classified elsewhere; B96.20 Unspecified Escherichia coli [E. coli] as the cause of diseases classified elsewhere; B95.62 Methicillin resistant Staphylococcus aureus infection as the cause of diseases classified elsewhere; M25.462 Effusion, left knee
CPT/HCPCS: 46050; 20610; 36569; 36415; 71045; 73562; 74176; 76770; 80048; 80053; 80202; 82140; 82803; 83880; 84550; 85007; 85014; 85018; 85025; 85048; 85049; 86850; 87040; 87070; 87075; 87077; 87186; 87205; 89051; 89060; 93306; 93970; 93971; 94640; 94760; 94761; 97110; 97165; 97530; C1751; C9803; G0378; J0696; J2543; J3370; P9016; U0003; U0005